=== PATIENT | male | born 1945 | race Caucasian/White ===

== ENCOUNTER → 2019-03-18 09:14 | Outpatient (BNVA) | payer MEDICARE, SELFPAY | PROVIDERS: Family Provider Nurse Practitioner Family; PCP Nurse Practitioner Family; Visit Provider Nurse Practitioner Family | DX: I10 Essential (primary) hypertension (principal); E29.1 Testicular hypofunction; G62.9 Polyneuropathy, unspecified; R31.9 Hematuria, unspecified | CPT/HCPCS: 81003; 84403 ==

== ENCOUNTER 2019-05-04 13:49 | Emergency (ER) | payer MEDICARE, SELFPAY ==
[2019-05-04 13:58] VITALS: BP 144/92; PULSE 74; RESP 16; TEMP 36.5; O2SAT 95; BMI 26.6
--- NOTE | 2019-05-04 14:01 | ED_ITS ---
Entered by Cassidy Stokes, acting as scribe for Breann Massey MD HPI - Nausea/Vomiting/Diarrhea General: Chief complaint: Nausea/Vomiting/Diarrhea Stated complaint: Throwing up Time Seen by Provider: 05/04/19 14:01 Source: patient Mode of arrival: ambulatory Limitations: no limitations History of Present Illness: HPI Narrative: 73 yo Male presents to ED with comp laint of vomiting. Diagnosed with diverticulitis by CT scan at [facility] yesterday. Put on Flagyl and Cipro but not given any nausea medicine and cannot stop throwing up. States he vomited too many times today to count. Had a normal bowel movement today. Abdominal pain that is mild to moderate diffusely. Has never had diverticulitis before. Remote history of cholecystectomy and appendectomy. No fever but has recently had a sinus infection and finished amoxicillin for that. Also complains of a dry cough MD elicited complaint: vomiting Associated nausea: No Associated symtoms: Denies change in vision, chest pain, headache(s) or nausea Review of Systems General: Reports: 10 or more systems reviewed and unremarkable except in HPI and below Const: Denies: fever or chills Eyes: Denies: change in vision ENMT: Denies: throat pain Card: Denies: chest pain Resp: Denies: shortness of breath GI: Reports: vomiting; Denies: abdominal pain or nausea Musc: Denies: muscle weakness Skin/Breast: Denies: rash Neuro: Denies: headache Psych: Denies: hopelessness or suicidal ideation Endo: Denies: excessive urination Angus/Lymph: Denies: easy bruising or easy bleeding All/Imm: Denies: hives [facility] ED PFSH: Medical History HTN (hypertension) Neuropathy Peripheral neuropathy Surgical History History of back surgery Hx of appendectomy Hx of cholecystectomy Hx of knee surgery Hx of neck surgery Social History Smoking and tobacco status: former smoker Second hand smoke exposure: Yes Physical Exam Const: COMMON NORMALS: no apparent distress, oriented x3, alert and well nourished HENMT: COMMON NORMALS: normocephalic and external nose normal HEAD & SCALP: normocephalic NOSE: external nose normal MOUTH: no trismus Eye: COMMON NORMALS: EOMs intact bilaterally and conjunctivae normal CONJUNCTIVA: Yes conjunctivae normal Neck/C-Spine: COMMON NORMALS: full ROM, no lymphadenopathy and supple CERVICAL SPINE: Yes cervical ROM normal Lymph: LYMPHATIC: no lymphadenopathy noted Resp: COMMON NORMALS: normal respiratory effort, no retractions, no use of accessory muscles and clear to auscultation bilaterally EFFORT & INSPECTION: Yes able to speak in complete sentences AUSCULTATION: clear to auscultation bilaterally Cardio: COMMON NORMALS: regular rate and regular rhythm RATE: regular rate RHYTHM: regular rhythm GI: COMMON NORMALS: normal to inspection, nondistended, normoactive bowel sounds, soft to palpation and no masses INSPECTION: Yes normal to inspection AUSCULTATION: Yes normoactive bowel sounds PALPATION: Yes soft, No guarding and No rigid OTHER: TTP to diffusely to moderate to deep palpation Back/Pelvis: OTHER: Normal range of motion Extremity: GENERAL: Yes normal exam except as noted Neuro: COMMON NORMALS: oriented x3 and CN's II-XII intact bilaterally SENSORIUM/ORIENTATION: Yes alert SPEECH: speech normal Psych: COMMON NORMALS: mental status grossly normal Skin: COMMON NORMALS: no rashes or lesions noted GENERAL SKIN EXAM: no rashes or lesions noted Course Vital Signs: Vital signs: Vital Signs Temperature 97.7 F 05/04/19 13:58 Pulse Rate 85 05/04/19 17:52 Respiratory Rate 17 05/04/19 17:52 Blood Pressure 149/86 05/04/19 17:52 Pulse Oximetry 97 05/04/19 17:52 MDM - Nausea/Vomiting/Diarrhea Lab Data: Labs: Lab Results 05/04/19 05/04/19 05/04/19 Range/Units 14:15 14:15 15:08 WBC 10.8 H (4.0-10.0) 10^3/ uL RBC 4.69 (4.1-5.3) 10^6/u L Hgb 13.9 (11.7-16.6) g/dL Hct 42.2 (42.0-52.0) % MCV 90.0 (80-94) fL MCH 29.6 (28.0-34.0) pg MCHC 32.9 (30.0-36.0) g/dL RDW 13.0 (12.1-15.1) % Plt Count 212 (130-400) 10^3/c mm MPV 12.0 H (7.4-10.4) fL Neut % (Auto) 81.9 % Lymph % (Auto) 11.0 % [place] % (Auto) 6.4 % Eos % (Auto) 0.3 % Baso % (Auto) 0.2 % Neut # (Auto) 8.8 H (1.8-7.7) 10^3/u L Lymph # (Auto) 1.2 (0.8-4.8) 10^3/u L [place] # (Auto) 0.7 (0.2-0.9) 10^3/u L Eos # (Auto) 0.0 (0.0-0.8) 10^3/u L Baso # (Auto) 0.0 (0.0-0.1) 10^3/u L Nucleated RBC % (a uto) 0 % Nucleated RBCs # 0.0 /100WBC Sodium 132 L (136-145) mmol/L Potassium 4.3 (3.5-5.1) mmol/L Chloride 98 (98-107) mmol/L Carbon Dioxide 20 L (22-29) mmol/L Anion Gap 18.3 (5-19) BUN 8 (8-23) mg/dL Creatinine 1.1 (0.7-1.2) mg/dL Glucose 114 (65-115) mg/dL Calculated Osmolal ity 271 L (285-295) mOsm/k g Calcium 9.8 (8.5-10.5) mg/dL Total Bilirubin 0.6 (0.15-1.2) mg/dL AST 25 (0-40) U/L ALT 40 (0-41) U/L Alkaline Phosphata se 61 (40-130) IU/L Total Protein 7.1 (6.6-8.7) g/dL Albumin 4.4 (3.5-5.2) g/dL Globulin 2.7 (1.3-4.6) g/dL Lipase 44 (13-60) U/L Urine Color Yellow (Yellow) Urine Appearance Clear (CLEAR) Urine pH 6.5 (5-7) Ur Specific Gravit y 1.010 (1.005-1.030) Urine Protein Neg (Negative) Urine Glucose (UA) Norm (Normal) Urine Ketones Negative (Negative) Urine Blood Neg (Negative) Urine Nitrate Negative (Negative) Urine Bilirubin Neg (NEGATIVE) Urine Urobilinogen Norm (Negative) mg/dL Ur Leukocyte Deedee ase Negative (Negative) Imaging Data^: CT Abd/Pel: Radiologist's impression: [place] [address] CT Scan Report Signed Patient: Rima Nath #: [id number] : 6Acct#:[id number] Age/Sex: 73 / MADM Date: 05/04/19 Loc: ERRoom/Bed: Attending Dr: Ordering Provider/Ordering MD: Breann Massey MD Date of Service: 05/04/19 Procedure(s): CT abdomen pelvis w con* [id number] Accession Number(s): [id number] Report Number: [id number] WS: [id number] CT ABDOMEN PELVIS TECHNIQUE: Contrast-enhanced CT of the abdomen and pelvis with coronal and sagittal reformatted images. CLINICAL INFORMATION: abd pain, intractable vomiting COMPARISON: None. DLP: 791.[address] scans at [facility] use at least one of these dose optimization techniques: automated exposure control; mA and/or kV adjustment per patient size (includes targeted exams where dose is matched to clinical indication); or iterative reconstruction. FINDINGS: Mild intrahepatic biliary ductal dilatation. Cholecystectomy clips. Adrenal glands are normal. Bilateral renal cysts. Largest right renal cyst measures 2.3 CCM. Largest left renal cyst lower pole measures 2.2 CCM. Emphysematous changes in the lung bases. Bibasilar atelectasis. Small esophageal hiatal hernia. Sigmoid diverticulosis. No evidence of acute diverticulitis. Heterogeneous nodular enlarged prostate measuring 6.4 cm. Prior appendectomy. No periaortic or inguinal lymphadenopathy. Slightly aneurysmal infrarenal abdominal aorta m easuring 3.[address]/CT abdomen pelvis w con* [id number] IMPRESSION: 1. Cholecystectomy clips. Physiologic bile duct dilatation postcholecystectomy. 2. No hydronephrosis. Bilateral renal cysts. 3. Aneurysmal infrarenal abdominal aorta measuring 3.8 x 3.7 CM. 4. Diverticulosis. No evidence of acute diverticulitis. 5. Enlarged prostate measuring 5.8 x 5.4 x 6.4 CM. Dictated By:Heron Judd MD Signed By:Heron Judd MDSigned Date/Time:05/04/19 1550 DD/ 1537 Discharge Plan Discharge Patient Disposition: Home, Self-Care Clinical Impression: Vomiting Qualifiers: Vomiting type: unspecified Vomiting Intractability: non-intractable Nausea presence: with nausea Qualified Code(s): R11.2 - Nausea with vomiting, unspecified Condition: Stable Prescriptions: New Zofran 4 mg tablet 4 mg PO Q6H PRN (Reason: nausea and vomiting) Qty: 10 RF: 0 No Action gabapentin 300 mg capsule 300 mg PO BID Qty: 60 RF: 2 esomeprazole magnesium 40 mg capsule,delayed release(DR/EC) 40 mg PO DAILY Qty: 90 RF: 1 fenofibrate nanocrystallized 145 mg tablet 145 mg PO DAILY Qty: 90 RF: 0 metronidazole 500 mg tablet 500 mg PO Q8H RF: 0 ciprofloxacin HCl 500 mg tablet 500 mg PO DAILY RF: 0 Referrals: Gely Espinosa FNP [Primary Care Provider] - Discharge Diet: Advance as tolerated Patient Instructions: Vomiting - Adult Activity Restrictions/Additional Instructions: take zofran if needed for nausea. STOP the cipro and flaggyl as they are likely making you vomit. Follow up with pcp as needed and/or return to ER for any emergent problems Discharge Date/Time: 05/04/19 17:53 Coding Level of Care Code ED Journalism Teacher for Chg Fwd Exam Comprehensive The documentation recorded by the Divya goodwin Carmen, accurately reflects the service I personally performed and the decisions made by , Breann Massey MD May 04, 2019 13:49
[2019-05-04 14:07] VITALS: O2SAT 96
[2019-05-04 14:23] LABS: Basophils % 0.2 %; Eosinophils % 0.3 %; Hematocrit 42.2 % (42.0-52.0); Hemoglobin 13.9 g/dL (11.7-16.6); Lymphocytes # 1.2 10^3/uL (0.8-4.8); Mean Corpuscular HGB Conc 32.9 g/dL (30.0-36.0); Mean Corpuscular Hemoglobin 29.6 pg (28.0-34.0); Monocytes # 0.7 10^3/uL (0.2-0.9); Monocytes % 6.4 %; Neutrophils # 8.8 10^3/uL (1.8-7.7); Neutrophils % 81.9 %; Nucleated Red Blood Cells % 0 %; Platelet Count 212 10^3/cmm (130-400); Red Blood Count 4.69 10^6/uL (4.1-5.3); White Blood Count 10.8 10^3/uL (4.0-10.0)
[2019-05-04] MEDS: sodium chloride 0.9% 1,000 ML 999 ML IV (14:25)
[2019-05-04] MEDS: ondansetron 2 mg/ML SDV 2 mL 4 MG IVP (14:25)
[2019-05-04 14:27] LABS: Slide Review Slide Review Perform
[2019-05-04 14:35] LABS: Alanine Aminotransferase 40 U/L (0-41); Albumin Level 4.4 g/dL (3.5-5.2); Alkaline Phosphatase 61 IU/L (40-130); Anion Gap 18.3 (5-19); Aspartate Amino Transferase 25 U/L (0-40); Blood Urea Nitrogen 8 mg/dL (8-23); Calcium 9.8 mg/dL (8.5-10.5); Carbon Dioxide 20 mmol/L (22-29); Chloride 98 mmol/L (98-107); Globulin 2.7 g/dL (1.3-4.6); Glucose 114 mg/dL (65-115); Lipase 44 U/L (13-60); Osmolality Calculated 271 mOsm/kg (285-295); Potassium 4.3 mmol/L (3.5-5.1); Sodium 132 mmol/L (136-145); Total Bilirubin 0.6 mg/dL (0.15-1.2); Total Protein 7.1 g/dL (6.6-8.7)
[2019-05-04 15:12] VITALS: BP 133/87; PULSE 72; RESP 16; O2SAT 96
--- NOTE | 2019-05-04 15:14 | CT_ITS ---
WS: [id number] CT ABDOMEN PELVIS TECHNIQUE: Contrast-enhanced CT of the abdomen and pelvis with coronal and sagittal reformatted image s. CLINICAL INFORMATION: abd pain, intractable vomiting COMPARISON: None. DLP: 791.[address] scans at [facility] use at least one of these dose optimization techniques: automat ed exposure control; mA and/or kV adjustment per patient size (includes targeted exams where dose is matched to clinical indication); or iterative reconstruction. FINDINGS: Mild intrahepatic biliary ductal dilatation. Cholecystectomy clips. Adrenal glands are normal. Bilate ral renal cysts. Largest right renal cyst measures 2.3 CCM. Largest left renal cyst lower pole measur es 2.2 CCM. Emphysematous changes in the lung bases. Bibasilar atelectasis. Small esophageal hiatal h ernia. Sigmoid diverticulosis. No evidence of acute diverticulitis. Heterogeneous nodular enlarged prostate measuring 6.4 cm. Prior appendectomy. No periaortic or inguinal lymphadenopathy. Slightly aneurysmal infrarenal abdominal aorta measuring 3.[address]/CT abdomen pelvis w con* [id number] IMPRESSION: 1. Cholecystectomy clips. Physiologic bile duct dilatation postcholecystectomy . 2. No hydronephrosis. Bilateral renal cysts. 3. Aneurysmal infrarenal abdominal aorta measuring 3.8 x 3.7 CM. 4. Diverticulosis. No evidence of acute diverticulitis. 5. Enlarged prostate measuring 5.8 x 5.4 x 6.4 CM.
[2019-05-04 15:15] LABS: Add Urine Microscopic? NO
[2019-05-04 15:24] LABS: Bilirubin Urine Neg (NEGATIVE); Blood Urine Neg (Negative); Glucose Urine UA Norm (Normal); Ketones Urine Negative (Negative); Leukocyte Esterase Urine Negative (Negative); Nitrate Urine Negative (Negative); Protein Urine Neg (Negative); Urine Appearance Clear (CLEAR); Urine Color Yellow (Yellow); Urobilinogen Urine Norm (Negative); pH Urine 6.5 (5-7)
[2019-05-04] MEDS: iohexol 300 mg/mL 100 mL Btl IV (15:28)
[2019-05-04] MEDS: promethazine 25 mg/mL SDV 1 mL IM (16:50)
[2019-05-04] MEDS: sodium chloride 0.9% 500 ML 999 ML IV (16:50)
[2019-05-04 17:26] VITALS: BP 145/95; PULSE 77; O2SAT 94
[2019-05-04 17:52] VITALS: BP 149/86; PULSE 85; RESP 17; O2SAT 97
== END 2019-05-04 17:53 | disposition home or self-care (01) ==
PROVIDERS: Emergency Provider Emergency Medicine; Family Provider Nurse Practitioner Family; PCP Nurse Practitioner Family
DX: R11.0 Nausea (principal); I10 Essential (primary) hypertension; Z87.891 Personal history of nicotine dependence
CPT/HCPCS: 12345; 36415; 74177; 80053; 81003; 83690; 85025; 96361; 96372; 96374; 96375; 99283; 99284; J2405; J2550; J7030; J7040; Q9967

== ENCOUNTER → 2019-08-19 09:03 | Outpatient (BNVA) | payer MEDICARE, SELFPAY | PROVIDERS: Family Provider Nurse Practitioner Family; PCP Nurse Practitioner Family; Visit Provider Nurse Practitioner Family | DX: G62.9 Polyneuropathy, unspecified (principal); E78.49 Other hyperlipidemia; S46.919A Strain of unspecified muscle, fascia and tendon at shoulder and upper arm level, unspecified arm, initial encounter; X58.XXXA Exposure to other specified factors, initial encounter; Z12.5 Encounter for screening for malignant neoplasm of prostate | CPT/HCPCS: G0103 ==

== ENCOUNTER → 2020-03-18 08:43 | Outpatient (BNVA) | payer MEDICARE, SELFPAY | PROVIDERS: Family Provider Nurse Practitioner Family; PCP Nurse Practitioner Family; Visit Provider Nurse Practitioner Family | DX: I10 Essential (primary) hypertension (principal) | CPT/HCPCS: 80053 ==

== ENCOUNTER → 2020-04-29 08:13 | Outpatient (BNVA) | payer MEDICARE, SELFPAY | PROVIDERS: PCP Nurse Practitioner Family; Visit Provider Surgery | DX: K21.9 Gastro-esophageal reflux disease without esophagitis (principal); Z20.822 Contact with and (suspected) exposure to COVID-19 | CPT/HCPCS: 87635 ==

== ENCOUNTER 2020-05-02 10:07 | Outpatient (CLI) | payer MEDICARE, SELFPAY ==
--- NOTE | 2020-05-02 10:15 | USCV_ITS ---
Cong Nath Age: 74 Gender: M : 1945 Exam Date: 05/02/2020 10:23 Ordering Phys: Gely Espinosa-Kevin CASON Technologist: AMILCAR Exam Location[place] [facility] [place] Indication: AAA HISTORY: Diameter (cm) AP x Transverse x Length Velocity (cm/s) Waveform Prox Aorta: 2.74 x 2.09 x 35.90 Mid Aorta: 3.00 x 3.42 x 40.90 Distal Aorta: 4.40 x 4.46 x 17.60 Right Iliac Prox: 1.13 x 1.27 x 51.60 Left Iliac Prox: 1.25 x 1.58 x 42.70 Stent Prox Landing x x Aneurysmal Sac Max x x Lt Lat Sac Dim Rt Lat Sac Dim Stent Dist Landing x x Right Iliac Stent x x Left Iliac Stent x x Right Renal Art Left Renal Art FINDINGS: Comparison:. 02/06/19. Increasing size of the infrarenal AAA, now maximum diameter of 4.6 cm. Mild diffuse intimal thickening. There is no evidence of a right common iliac artery aneurysm. There is no evidence of a left common iliac artery aneurysm. CONCLUSIONS Increasing AAA, maximum diameter of 4.[address] Dottie Lazaro DO (Electronically Signed) Final Date: 02 May 2020 16:14 S
== END 2020-05-02 10:08 | disposition home or self-care (01) ==
PROVIDERS: PCP Nurse Practitioner Family; Visit Provider Nurse Practitioner Family
DX: I71.4 Abdominal aortic aneurysm, without rupture (principal)
CPT/HCPCS: 76706; 80061; 82947; 83036; G0103

== ENCOUNTER 2020-05-04 07:54 | Day surgery (SDC) | payer MEDICARE, SELFPAY ==
--- NOTE | 2020-05-04 08:02 | ANES.PREANE2 ---
Pre-Anesthetic Assessment Pre-Anesthetic Assessment: Height/Weight: Height 1.85 m Preop Diagnosis: GERD Proposed Procedure: Operation Date: 03/30/20 09:40 Proposed Procedures p EGD 14449 K21.9(Not Applicable) - Devaughn Jang MD Operation Date: 05/04/20 09:30 Proposed Procedures p EGD 34709 K21.9(Not Applicable) - Devaughn Jang MD Familial anesthetic complications: None Was Beta Camelia taken within 24 hours: N/A Was Clonidine taken within 24 hours: N/A Last intake: NPO > 8 hrs Social: Social History: Tobacco Exam: Pre-Anes Outpt Exam: alert, oriented x 3, clear to auscultation bilaterally and regular rate & rhythm Airway: Cervical ROM: WNL MP: 4 Dentition: Chipped (multiple) and Other (missing) CV/HEM: CV/HEM: HTN Comments: AAA - uknown size GI: GI: GERD Musc/skel: Musc/skel: Lower Back Pain Anesthetic Plan: ASA status: 2 Anesthesia: MAC Risk of > 500 ml blood loss (7ml/kg in children): No PFSH Anesthesia PFSH: Medical History GERD (gastroesophageal reflux disease) Neuropathy Peripheral neuropathy Surgical History History of back surgery Hx of appendectomy Hx of cholecystectomy Hx of knee surgery Hx of neck surgery Family History Denies family history of Anesthesia complication Bleeding disorder Social History Smoking and tobacco status: former smoker Second hand smoke exposure: Yes Data Anesthesia Cardiac Studies: No Data to Display
--- NOTE | 2020-05-04 08:36 | P.HP_ITS ---
Same Day Surgery H&P Indication for Procedure/HPI DATE OF PROCEDURE: May 04, 2020 CHIEF COMPLAINT/INDICATIONFOR SURGICAL PROCEDURE: GERD and vomiting PREOP DIAGNOSIS: Bloating and vomiting PLANNED PROCEDRUE: Operation Date: 03/30/20 09:40 Proposed Procedures p EGD 97005 K21.9(Not Applicable) - Devaughn Jang MD Operation Date: 05/04/20 09:30 Proposed Procedures p EGD 41254 K21.9(Not Applicable) - Devaughn Jang MD This is a pleasant 74 years old gentleman referred to my practice with history of bloating and vomiting without any evidence of hematemesis or hematochezia. Patient does not report any specific explanation for his symptoms yet all kinds of food according to his description make him symptomatic. Undergone an EGD a while ago about 5 years and he does not remember any significant findings and he had a colonoscopy 2 years ago and was told that he has diverticulosis also he reports to me when I asked him he did have gallbladder surgery. Patient reports that he has lactose intolerance when asked him about different types of food Interim history 05/04/2020 Patient comes today for diagnostic EGD ROS All systems have been reviewed negative except as per the above or per problem list. Medications/Allergies* Home Medications Medication Instructions Recorded Confirmed Type fenofibrate nanocrystallized 145 mg PO DAILY 05/02/20 05/04/20 History lansoprazole 30 mg PO DAILY 05/02/20 05/04/20 History Allergies/Adverse Reactions Allergy/AdvReac Type Severity Reaction Status Date / Time atorvastatin [From Lipitor] Allergy abdominal Verified 05/04/20 08:40 pain hydrocodone Allergy abdominal Verified 05/04/20 08:40 pain Pertinent History/Comorbid Conditions* Medical History (Updated 03/12/20 @ 09:42 by Devaughn Jang MD) GERD (gastroesophageal reflux disease) Neuropathy Peripheral neuropathy Surgical History (Updated 02/17/19 @ 11:12 by YOAV Walls) History of back surgery Hx of appendectomy Hx of cholecystectomy Hx of knee surgery Hx of neck surgery Family History (Updated 03/10/20 @ 15:04 by Christa Wilde RN) Denies family history of Anesthesia complication Bleeding disorder Social History Smoking and tobacco status: former smoker Second hand smoke exposure: Yes Pertinent Exam Findings alert, oriented x 3, clear to auscultation bilaterally, regular rate & rhythm and procedure specific exam findings (Abdominal examination nontender nondistended soft) Recommendations Surgery/Procedure today (Diagnostic EGD with possible biopsy) Other Plans: Plan of care; After thorough history and physical examination and reviewing the chart, plan to perform a diagnostic esophagogastroduodenoscopy with possible biopsy in the GI lab. I discussed with the patient in detail the risk,benefits,alternatives and jemima cations.The risk of aspiration, bleeding, soft tissue injury, perforation of the stomach/esophagus and other potential concomitant complications were explained to the patient in details,aslo the potential need for Thoracic and or Abdominal surgery to repair any complications.The patient understood this well and did agree to proceed. Rationale was carefully and clearly discussed with the patient.Appropriate informed consent have been reviewed and signed All questions have been answered and all concerns have been addressed to patient's satisfaction. Coding Level of Care Code Acute Auto Battery Builder for Una Klein
[2020-05-04 08:42] VITALS: BP 116/66; PULSE 63; RESP 18; TEMP 35.9; O2SAT 94
[2020-05-04] MEDS: sodium chloride 0.9% 1,000 ML 30 ML IV (08:46)
[2020-05-04 10:03] VITALS: BP 126/77; PULSE 62; RESP 16; TEMP 36.4; O2SAT 97
--- NOTE | 2020-05-04 10:11 | ANE.PACU2 ---
Inpatient post-anesthesia follow up: Airway intact: Yes Vital signs: Temperature 96.7 F Pulse Rate 63 Respiratory Rate 18 Blood Pressure 116/66 Pulse Oximetry 94 Oxygen Delivery Me thod Room Air Oxygen Flow Rate Fraction of Inspir ed Oxygen Hydration adequate: Yes Nausea and vomiting: No Mental status: Baseline
[2020-05-04 10:30] VITALS: BP 127/84; PULSE 55; RESP 16; O2SAT 97
[2020-05-05 06:29] LABS: H. Pylori / CLO Test Negative
== END 2020-05-04 10:37 | disposition home or self-care (01) ==
PROVIDERS: PCP Nurse Practitioner Family; Visit Provider Surgery
PROC: 0DJ08ZZ Inspection of Upper Intestinal Tract, Via Natural or Artificial Opening Endoscopic (ICD-10-PCS; CPT 43235; principal; 2020-05-04 09:30)
DX: K21.00 Gastro-esophageal reflux disease with esophagitis, without bleeding (principal); K29.80 Duodenitis without bleeding; K29.70 Gastritis, unspecified, without bleeding; R11.10 Vomiting, unspecified; R14.0 Abdominal distension (gaseous); Z87.891 Personal history of nicotine dependence; I10 Essential (primary) hypertension
CPT/HCPCS: 43239; 87077; 96360; 96361; J2704; J7030

== ENCOUNTER 2020-05-09 08:44 | Outpatient (CLI) | payer MEDICARE, SELFPAY ==
--- NOTE | 2020-05-09 08:50 | FL_ITS ---
WS: [id number] MODIFIED BARIUM SWALLOW HISTORY: Other dysphagia FLUOROSCOPY TIME: 2.2 minutes. Modified barium swallow was performed by the speech pathologist. Fluoroscopy was provided with the pa tient in a lateral projection. Multiple food consistencies were provided. Patient swallowed most food consistencies without difficulty. With the thin liquids there are a few e pisodes of laryngeal penetration. No aspiration. With the more solid food consistencies there is tadeo yed and incomplete swallowing of the foods. Food products became lodged near the epiglottis but this resolved with liquid chasers. Barium tablet became delayed in the mid to distal esophagus due to esophageal dysmotility. FL/FL barium swallow modifd 43880 IMPRESSION: 1. Minimal clearing of the more solid food consistencies which resolved with l iquid chaser. 2. Barium tablet became briefly lodged within the mid to distal esophagus due to esophageal dysmotility. 3. No aspiration. Please see speech therapist report also for recommendations.
== END 2020-05-09 08:45 | disposition home or self-care (01) ==
PROVIDERS: PCP Nurse Practitioner Family; Visit Provider Surgery
DX: R13.10 Dysphagia, unspecified (principal)
CPT/HCPCS: 74230; 92611

== ENCOUNTER 2020-05-11 08:10 | Outpatient (CLI) | payer MEDICARE, SELFPAY ==
--- NOTE | 2020-05-11 08:30 | CT_ITS ---
WS: [id number] CTA ABDOMEN TECHNIQUE: Noncontrast plus contrast enhanced CTA of the abdominal aorta with coronal and sagittal re formatted images and additional MIP Images. CLINICAL INFORMATION: I71.4 - Abdominal aortic aneurysm, without rupture COMPARISON: CT May 04, 2019 DLP: 1017.[address] scans at [facility] use at least one of these dose optimization techniques: automat ed exposure control; mA and/or kV adjustment per patient size (includes targeted exams where dose is matched to clinical indication); or iterative reconstruction. FINDINGS: Moderate aortic atheromatous disease. Infrarenal abdominal aortic aneurysm with peripheral mural thrombus. Aneurysm measures approximately 3.8 x 4.1 x 4.5 cm AP by transverse by craniocaudal. Celiac and SMA are patent. Proximal renal arteries are patent. Tortuous and slightly ectatic common i liac arteries left greater than right. Left common iliac artery measures 1.4 cm in maximum dimension. Retroaortic left renal vein. Stable mild intrahepatic biliary ductal dilatation. Cholecystectomy. Adrenal glands are normal. Stabl e bilateral renal cysts. Small esophageal hiatal hernia. Sigmoid diverticulosis. No evidence of acute diverticulitis. Heteroge neous nodular enlarged prostate measuring 6.[address]/CT angio abdomen pelvis 37185 IMPRESSION: 1. Infrarenal abdominal aortic aneurysm measures a few millimeters larger toda y 3.8 x 4.1 x 4.5 cm AP by transverse by craniocaudal compared to previous faviola uring 3.8 x 3.7 x 4.3 CM. 2. Celiac and SMA are patent. Proximal renal arteries are patent. 3. No other significant changes compared to previous. 4. Postcholecystectomy. 5. Diverticulosis. 6. Enlarged prostate. Recommend correlation PSA.
[2020-05-11 09:05] LABS: Blood Urea Nitrogen 10 mg/dL (8-23)
[2020-05-11] MEDS: iodixanol 320 mg/mL 100mL Btl IV (09:15)
== END 2020-05-11 08:11 | disposition home or self-care (01) ==
LOC: RADWPI 08:19
PROVIDERS: PCP Nurse Practitioner Family; Visit Provider Nurse Practitioner Family
DX: I71.4 Abdominal aortic aneurysm, without rupture (principal); Z90.49 Acquired absence of other specified parts of digestive tract; K57.90 Diverticulosis of intestine, part unspecified, without perforation or abscess without bleeding; N40.0 Benign prostatic hyperplasia without lower urinary tract symptoms
CPT/HCPCS: 74174; 82565; 84520; Q9967

== ENCOUNTER 2020-05-23 20:09 | Emergency (ER) | payer MEDICARE, SELFPAY ==
[2020-05-23 20:15] VITALS: BP 147/84; PULSE 65; RESP 17; TEMP 36.5; O2SAT 97; BMI 25.6
--- NOTE | 2020-05-23 20:31 | ECG_ITS ---
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 Measurements Intervals [place] Rate: 58 P: 48 [place]: 157 QRS: -58 QRSD: 101 T: 36 QT: 408 QTc: 404 Interpretive Statements SINUS BRADYCARDIA INCOMPLETE RIGHT BUNDLE BRANCH BLOCK [90+ ms QRS DURATION, TERMINAL R IN V1/V2, 40+ ms S IN I/aVL/V4/V5/V6] LEFT ANTERIOR FASCICULAR BLOCK [QRS AXIS <= -45, QR IN I, RS IN II] No previous ECG available for comparison Electronically Signed On 05-25-2020 7:37:30 CDT by Enoch Jiang M.D. [id number]
--- NOTE | 2020-05-23 20:31 | XRR_ITS ---
PROCEDURE INFORMATION: Exam: XR Chest Exam date and time: 05/23/2020 8:43 PM Age: 74 years old Clinical indication: Chest pain; Patient HX: High BP, HX heart aneurysm; Additional info: Cp since 05/22/20 TECHNIQUE: Imaging protocol: XR of the chest. Views: 1 view. COMPARISON: No relevant prior studies available. FINDINGS: Lungs: Lungs are well aerated without a focal area of consolidation. Pleural spaces: Unremarkable. No pleural effusion. No pneumothorax. Heart/Mediastinum: Unremarkable. No cardiomegaly. Bones/joints: Prior surgical fixation of the caudal aspect of the cervical spine. XR/XR chest 1V portable [id number] IMPRESSION: Lungs are well aerated without a focal area of consolidation.
--- NOTE | 2020-05-23 20:55 | CTR_ITS ---
PROCEDURE INFORMATION: Exam: CTA Chest With and Without Contrast Exam date and time: 05/23/2020 9:03 PM Age: 74 years old Clinical indication: Pain; Other: Cp/ elevated BP; Prior surgery; Surgery type: Neck, appy, gb, back; Additional info: Chest pain, history of aaa TECHNIQUE: Imaging protocol: Computed tomographic angiography of the chest with contrast. 3D rendering (Not supervised by radiologist): MIP and/or 3D reconstructed images were created and reviewed. Total images: 1867 COMPARISON: CT angio abdomen pelvis [id number] 05/11/2020 9:04 AM FINDINGS: Pulmonary arteries: Suboptimal pulmonary arterial contrast enhancement. No grossly visible central pulmonary embolism/pulmonary arterial thrombus. Aorta: The thoracic aorta is nonaneurysmal. No visible intimal flap or dissection. Moderate arterial sclerotic disease. Mild intramural thrombus without occlusion. Other arteries: Common origin of the left vertebral artery off the aortic arch which is a normal anatomical variant. Lungs: No visible active interstitial or alveolar airspace disease. Calcified granulomas of antecedent disease. Rare bullous/bleb. Evidence of mild air trapping of COPD/chronic bronchitis. Pleural spaces: Unremarkable. No pneumothorax. No pleural effusion. Heart: Three vessel coronary artery disease. No cardiomegaly. Left ventricular prominence. No visible pericardial effusion. Mediastinal space: Patulous esophagus. Lymph nodes: No definitive evidence of active mediastinal or hilar lymphadenopathy. There are calcified hilar complexes of antecedent granulomatous disease present. Bones/joints: No visible active or acute osseous pathology. Evidence of a cervical fusion. Soft tissues: Unremarkable. IMPRESSION: 1. No visible evidence of acute cardiopulmonary/cardiothoracic pathologic process. 2. Other nonurgent, nonemergent, chronic, and age related findings as detailed in text above. PROCEDURE INFORMATION: Exam: CTA Abdomen and Pelvis With Contrast Exam date and time: 05/23/2020 9:03 PM Age: 74 years old Clinical indication: Pain; Other: Cp/ elevated BP; Prior surgery; Surgery type: Neck, appy, gb, back; Additional info: Chest pain, history of aaa TECHNIQUE: Imaging protocol: Computed tomographic angiography of the abdomen and pelvis with contrast material. 3D rendering (Not supervised by radiologist): MIP and/or 3D reconstructed images were created by the technologist. Radiation optimization: All CT scans at this facility use at least one of these dose optimization techniques: automated exposure control; mA and/or kV adjustment per patient size (includes targeted exams where dose is matched to clinical indication); or iterative reconstruction. Contrast material: VISI 320; Contrast volume: 95 ml; Contrast route: INTRAVENOUS (IV); COMPARISON: CT angio abdomen pelvis [id number] 05/11/2020 9:04 AM RADIATION DOSE METRICS: Total DLP (mGy-cm): 1708.99 FINDINGS: Aorta: Mild infrarenal fusiform aneurysmal dilatation of the distal abdominal aorta that appear stable since 05/11/2020 measuring approximately 41 mm in AP diameter in 38 mm in transverse diameter. Moderately advanced arteriosclerosis. Mild intramural thrombus without occlusion. No intimal flap or dissection. Celiac trunk and mesenteric arteries: No occlusion or significant stenosis. Separate origin of the hepatic and splenic arteries off the abdominal aorta Renal arteries: No occlusion or significant stenosis. Right iliac arteries: No occlusion or significant stenosis. Left iliac arteries: No occlusion or significant stenosis. Liver: No visible hepatic mass or cystic structure. Gallbladder and bile ducts: Status post cholecystectomy. Pancreas: Pancreas unremarkable. No visible pancreatic ductal ectasia. Spleen: Spleen unremarkable. Adrenal glands: Adrenal glands unremarkable. Kidneys and ureters: No hydronephrosis or perinephric fluid bilaterally. Stable simple renal cortical cysts. No follow-up recommended. No visible nephrolithiasis. Stomach and bowel: Diverticulosis coli without evidence for acute diverticulitis. Nonobstructive bowel pattern. No visible adynamic or reactive ileus. Appendix: Status post appendectomy. Intraperitoneal space: No visible pneumoperitoneum or intraperitoneal ascites. Lymph nodes: Unremarkable. No enlarged lymph nodes. Urinary bladder: Unremarkable. No mass. Reproductive: Marked prostate hypertrophy. Bones/joints: No visible active or acute osseous pathology. Degenerative disc disease L4/L5 and L5/S1. Soft tissues: Unremarkable. CT/CT angio chest abdomen pelvis IMPRESSION: 1. Stable appearing infrarenal fusiform abdominal aortic aneurysm without intimal flap or dissection. 2. No visible evidence of acute abdominal or pelvic pathologic process. 3. Rather extensive diverticulosis coli without evidence for acute diverticulitis. 4. Other nonurgent, nonemergent, chronic, and age related findings as detailed in text above. Radiation Dose CTDIVOL = (mGy): DLP = 1708.99 (mGy-cm)
[2020-05-23] MEDS: iodixanol 320 mg/mL 100mL Btl IV (21:18)
[2020-05-23 21:27] LABS: Basophils # 0.1 10^3/uL (0.0-0.1); Basophils % 0.8 %; Eosinophils # 0.3 10^3/uL (0.0-0.8); Eosinophils % 3.6 %; Hematocrit 43.3 % (42.0-52.0); Hemoglobin 14.2 g/dL (11.7-16.6); Lymphocytes # 2.1 10^3/uL (0.8-4.8); Lymphocytes % 23.6 %; Mean Corpuscular HGB Conc 32.8 g/dL (30.0-36.0); Mean Corpuscular Hemoglobin 28.6 pg (28.0-34.0); Mean Corpuscular Volume 87.3 fL (80-94); Mean Platelet Volume 12.8 fL (7.4-10.4); Monocytes # 0.7 10^3/uL (0.2-0.9); Monocytes % 7.4 %; Neutrophils # 5.66 10^3/uL (1.8-7.7); Neutrophils % 64.4 %; Nucleated Red Blood Cells % 0 %; Platelet Count 185 10^3/cmm (130-400); Red Blood Count 4.96 10^6/uL (4.1-5.3); Red Cell Distribution Width 13.6 % (12.1-15.1); White Blood Count 8.8 10^3/uL (4.0-10.0)
[2020-05-23 21:45] LABS: Troponin(5th) Baseline 7 ng/L (0-15)
[2020-05-23 21:55] LABS: Alanine Aminotransferase 17 U/L (0-41); Albumin Level 4.7 g/dL (3.5-5.2); Alkaline Phosphatase 59 IU/L (40-130); Anion Gap 14.2 (5-19); Aspartate Amino Transferase 18 U/L (0-40); Blood Urea Nitrogen 17 mg/dL (8-23); Carbon Dioxide 25 mmol/L (22-29); Chloride 106 mmol/L (98-107); Creatinine Clr Calc Pharmacy 63.5088; Globulin 1.7 g/dL (1.3-4.6); Glucose 94 mg/dL (65-115); NT Pro B Type Natriuretic Pept 71 pg/mL (0-125); Osmolality Calculated 293 mOsm/kg (285-295); Potassium 4.2 mmol/L (3.5-5.1); Sodium 141 mmol/L (136-145); Total Bilirubin 0.3 mg/dL (0.15-1.2); Total Protein 6.4 g/dL (6.6-8.7)
[2020-05-23 22:34] VITALS: BP 139/74; PULSE 62; RESP 15; O2SAT 96
--- NOTE | 2020-05-23 22:41 | W.ED.CHESTPA ---
HPI - Chest Pain General: Chief Complaint: Chest Pain Stated Complaint: high blood pressure, has aneurysm Time Seen by Provider: 05/23/20 20:36 Source: patient Mode of arrival: ambulatory Limitations: no limitations History of Present Illness: HPI narrative: This is a 74-year-old gentleman with a history of a AAA who is being planned for evaluation by the vascular surgeon later this week. He states that over the last few days he has been having episodes of dizziness, chest pain, and an unsteady gait. Today he developed more chest pain and he noticed that his blood pressure was markedly elevated which she had been told was dangerous for his aneurysm so he came to the emergency department to be evaluated. He denies any nausea or diaphoresis. Denies any blood in the stool or urine. Denies back pain. MD complaint: chest pain Pertinent past history: known aortic aneurysm Onset (ago): day(s) (2) Timing of current episode: episodic Prior episodes: Yes Onset: during rest Pain location: left chest Pain radiation: right arm and left arm Severity: moderate Quality: aching and heaviness Relieving factors: nothing Exacerbating factors: nothing Associated symptoms: Deny abdominal pain, diaphoresis, dyspnea, fever(s), leg edema, nausea, palpitations, sense of impending doom, syncope or vomiting Review of Systems General: Reports: 10 or more systems reviewed and unremarkable except in HPI and below Const: Denies: fever(s) or diaphoresis Card: Denies: palpitations or syncope Resp: Denies: dyspnea GI: Denies: abdominal pain, nausea or vomiting [facility] ED PFSH: Medical History Gastritis and duodenitis GERD (gastroesophageal reflux disease) Neuropathy Peripheral neuropathy Surgical History History of back surgery Hx of appendectomy Hx of cholecystectomy Hx of knee surgery Hx of neck surgery Family History Denies family history of Anesthesia complication Bleeding disorder Social History Smoking and tobacco status: former smoker Second hand smoke exposure: Yes Physical Exam Const: COMMON NORMALS: no acute distress, average body habitus, patient oriented x3, no limitations, healthy appearing, alert and well nourished HENMT: COMMON NORMALS: normocephalic, atraumatic and moist oral mucous membranes HEAD & SCALP: normocephalic and atraumatic Neck/C-Spine: COMMON NORMALS: no meningeal signs and no JVD Resp: COMMON NORMALS: normal respiratory effort, No retractions, No use of accessory muscles, clear to auscultation bilaterally and percussion normal AUSCULTATION: clear to auscultation bilaterally PERCUSSION: percussion normal Cardio: COMMON NORMALS: no JVD, regular rate, regular rhythm, S1 normal heart sound present, S2 normal heart sound present, No gallops present (Cardio), No clicks present (Cardio), No murmurs present (Cardio), No rub (Cardio) and Peripheral pulses 2+ throughout RATE: regular rate RHYTHM: regular rhythm HEART SOUNDS: S1 normal heart sound present and S2 normal heart sound present PERIPHERAL PULSES: Peripheral pulses 2+ throughout GI: COMMON NORMALS: Normal to inspection, nondistended, normoactive bowel sounds present, Soft to palpation, non-tender, No hepatosplenomegaly present, no masses and no bruits PALPATION: Yes Soft to palpation and Yes No hepatosplenomegaly present Extremity: COMMON NORMALS: normal to inspection, full ROM, capillary refill normal, no calf tenderness and no pedal edema Neuro: COMMON NORMALS: patient oriented x3 SENSORIUM/ORIENTATION: Yes alert MENINGEAL SIGNS: Yes no meningeal signs Skin: COMMON NORMALS: no rashes or lesions noted, no wounds, turgor normal, no jaundice, no petechiae and no mottling GENERAL SKIN EXAM: no rashes or lesions noted and turgor normal Course Reevaluation(s): Reevaluation #1: Discussed his lab and imaging findings with him. Negative for acute findings. Discussed the CT findings with him, the aneurysm is not any bigger and it remains stable. Advised that he follow-up with his primary care provider tomorrow for medication adjustment to get a better control of his blood pressure. He voiced understanding and he is in agreement with the plan. Time: 23:20 Vital Signs: Vital signs: Vital Signs Temperature 97.7 F 05/23/20 20:15 Pulse Rate 62 05/23/20 22:34 Respiratory Rate 15 05/23/20 22:34 Blood Pressure 139/74 05/23/20 22:34 Pulse Oximetry 96 05/23/20 22:34 MDM - Chest Pain MDM Narrative: Medical decision making narrative: 74-year-old male who presents to the emergency department with elevated blood pressure and chest pain. He has a history of a AAA and is being worked up by vascular surgery. Evaluation in the emergency department is unremarkable and his aneurysm is stable and unchanged. He is discharged home with no new medications. Medical Records: Attestation: I reviewed the patient's medical records. Lab Data: Attestation: I reviewed the patient's lab results. Labs: Lab Results 05/23/20 05/23/20 05/23/20 Range/Units 21:09 21:09 21:09 WBC 8.8 (4.0-10.0) 10^3/ uL RBC 4.96 (4.1-5.3) 10^6/u L Hgb 14.2 (11.7-16.6) g/dL Hct 43.3 (42.0-52.0) % MCV 87.3 (80-94) fL MCH 28.6 (28.0-34.0) pg MCHC 32.8 (30.0-36.0) g/dL RDW 13.6 (12.1-15.1) % Plt Count 185 (130-400) 10^3/c mm MPV 12.8 H (7.4-10.4) fL Neut % (Auto) 64.4 % Lymph % (Auto) 23.6 % Sequoyah % (Auto) 7.4 % Eos % (Auto) 3.6 % Baso % (Auto) 0.8 % Neut # (Auto) 5.66 (1.8-7.7) 10^3/u L Lymph # (Auto) 2.1 (0.8-4.8) 10^3/u L Sequoyah # (Auto) 0.7 (0.2-0.9) 10^3/u L Eos # (Auto) 0.3 (0.0-0.8) 10^3/u L Baso # (Auto) 0.1 (0.0-0.1) 10^3/u L Nucleated RBC % (a uto) 0 % Nucleated RBCs # 0.0 /100WBC Sodium 141 (136-145) mmol/L Potassium 4.2 (3.5-5.1) mmol/L Chloride 106 (98-107) mmol/L Carbon Dioxide 25 (22-29) mmol/L Anion Gap 14.2 (5-19) BUN 17 (8-23) mg/dL Creatinine 1.2 (0.7-1.2) mg/dL GFR Calculation Not Reportable Glucose 94 (65-115) mg/dL Calculated Osmolal ity 293 (285-295) mOsm/k g Calcium 9.0 (8.5-10.5) mg/dL Total Bilirubin 0.3 (0.15-1.2) mg/dL AST 18 (0-40) U/L ALT 17 (0-41) U/L Alkaline Phosphata se 59 (40-130) IU/L Troponin T Baselin e 7 (0-15) ng/L Troponin T 120 Min manzanita (0-15) ng/L Delta Troponin T (0-10) ABS# NT-Pro-B Natriuret Pep 71 (0-125) pg/mL Total Protein 6.4 L (6.6-8.7) g/dL Albumin 4.7 (3.5-5.2) g/dL Globulin 1.7 (1.3-4.6) g/dL 05/23/20 Range/Units 22:45 WBC (4.0-10.0) 10^3/ uL RBC (4.1-5.3) 10^6/u L Hgb (11.7-16.6) g/dL Hct (42.0-52.0) % MCV (80-94) fL MCH (28.0-34.0) pg MCHC (30.0-36.0) g/dL RDW (12.1-15.1) % Plt Count (130-400) 10^3/c mm MPV (7.4-10.4) fL Neut % (Auto) % Lymph % (Auto) % Sequoyah % (Auto) % Eos % (Auto) % Baso % (Auto) % Neut # (Auto) (1.8-7.7) 10^3/u L Lymph # (Auto) (0.8-4.8) 10^3/u L Sequoyah # (Auto) (0.2-0.9) 10^3/u L Eos # (Auto) (0.0-0.8) 10^3/u L Baso # (Auto) (0.0-0.1) 10^3/u L Nucleated RBC % (a uto) % Nucleated RBCs # /100WBC Sodium (136-145) mmol/L Potassium (3.5-5.1) mmol/L Chloride (98-107) mmol/L Carbon Dioxide (22-29) mmol/L Anion Gap (5-19) BUN (8-23) mg/dL Creatinine (0.7-1.2) mg/dL GFR Calculation Glucose (65-115) mg/dL Calculated Osmolal ity (285-295) mOsm/k g Calcium (8.5-10.5) mg/dL Total Bilirubin (0.15-1.2) mg/dL AST (0-40) U/L ALT (0-41) U/L Alkaline Phosphata se (40-130) IU/L Troponin T Baselin e (0-15) ng/L Troponin T 120 Min manzanita 7.33 (0-15) ng/L Delta Troponin T 0.33 (0-10) ABS# NT-Pro-B Natriuret Pep (0-125) pg/mL Total Protein (6.6-8.7) g/dL Albumin (3.5-5.2) g/dL Globulin (1.3-4.6) g/dL Imaging Data^: Other CT: Attestation: I personally reviewed and interpreted this imaging study as follows: Radiologist's impression: [address] [address] [address] Scan Report Signed Patient: Rima Nath #: [id number] : 6Acct#:[id number] Age/Sex: 74 / MADM Date: 05/23/20 Loc: ERRoom/Bed: Attending Dr: Ordering Provider/Ordering MD: Becky John MD, [facility] [place] Date of Service: 05/23/20 Procedure(s): CT angio chest abdomen pelvis Accession Number(s): [id number] Report Number: [id number] PROCEDURE INFORMATION: Exam: CTA Chest With and Without Contrast Exam date and time: 05/23/2020 9:03 PM Age: 74 years old Clinical indication: Pain; Other: Cp/ elevated BP; Prior surgery; Surgery type: Neck, appy, gb, back; Additional info: Chest pain, history of aaa TECHNIQUE: Imaging protocol: Computed tomographic angiography of the chest with contrast. 3D rendering (Not supervised by radiologist): MIP and/or 3D reconstructed images were created and reviewed. Total images: 1867 COMPARISON: CT angio abdomen pelvis [id number] 05/11/2020 9:04 AM FINDINGS: Pulmonary arteries: Suboptimal pulmonary arterial contrast enhancement. No grossly visible central pulmonary embolism/pulmonary arterial thrombus. Aorta: The thoracic aorta is nonaneurysmal. No visible intimal flap or dissection. Moderate arterial sclerotic disease. Mild intramural thrombus without occlusion. Other arteries: Common origin of the left vertebral artery off the aortic arch which is a normal anatomical variant. Lungs: No visible active interstitial or alveolar airspace disease. Calcified granulomas of antecedent disease. Rare bullous/bleb. Evidence of mild air trapping of COPD/chronic bronchitis. Pleural spaces: Unremarkable. No pneumothorax. No pleural effusion. Heart: Three vessel coronary artery disease. No cardiomegaly. Left ventricular prominence. No visible pericardial effusion. Mediastinal space: Patulous esophagus. Lymph nodes: No definitive evidence of active mediastinal or hilar lymphadenopathy. There are calcified hilar complexes of antecedent granulomatous disease present. Bones/joints: No visible active or acute osseous pathology. Evidence of a cervical fusion. Soft tissues: Unremarkable. IMPRESSION: 1. No visible evidence of acute cardiopulmonary/cardiothoracic pathologic process. 2. Other nonurgent, nonemergent, chronic, and age related findings as detailed in text above. PROCEDURE INFORMATION: Exam: CTA Abdomen and Pelvis With Contrast Exam date and time: 05/23/2020 9:03 PM Age: 74 years old Clinical indication: Pain; Other: Cp/ elevated BP; Prior surgery; Surgery type: Neck, appy, gb, back; Additional info: Chest pain, history of aaa TECHNIQUE: Imaging protocol: Computed tomographic angiography of the abdomen and pelvis with contrast material. 3D rendering (Not supervised by radiologist): MIP and/or 3D reconstructed images were created by the technologist. Radiation optimization: All CT scans at this facility use at least one of these dose optimization techniques: automated exposure control; mA and/or kV adjustment per patient size (includes targeted exams where dose is matched to clinical indication); or iterative reconstruction. Contrast material: VISI 320; Contrast volume: 95 ml; Contrast route: INTRAVENOUS (IV); COMPARISON: CT angio abdomen pelvis [id number] 05/11/2020 9:04 AM RADIATION DOSE METRICS: Total DLP (mGy-cm): 1708.99 FINDINGS: Aorta: Mild infrarenal fusiform aneurysmal dilatation of the distal abdominal aorta that appear stable since 05/11/2020 measuring approximately 41 mm in AP diameter in 38 mm in transverse diameter. Moderately advanced arteriosclerosis. Mild intramural thrombus without occlusion. No intimal flap or dissection. Celiac trunk and mesenteric arteries: No occlusion or significant stenosis. Separate origin of the hepatic and splenic arteries off the abdominal aorta Renal arteries: No occlusion or significant stenosis. Right iliac arteries: No occlusion or significant stenosis. Left iliac arteries: No occlusion or significant stenosis. Liver: No visible hepatic mass or cystic structure. Gallbladder and bile ducts: Status post cholecystectomy. Pancreas: Pancreas unremarkable. No visible pancreatic ductal ectasia. Spleen: Spleen unremarkable. Adrenal glands: Adrenal glands unremarkable. Kidneys and ureters: No hydronephrosis or perinephric fluid bilaterally. Stable simple renal cortical cysts. No follow-up recommended. No visible nephrolithiasis. Stomach and bowel: Diverticulosis coli without evidence for acute diverticulitis. Nonobstructive bowel pattern. No visible adynamic or reactive ileus. Appendix: Status post appendectomy. Intraperitoneal space: No visible pneumoperitoneum or intraperitoneal ascites. Lymph nodes: Unremarkable. No enlarged lymph nodes. Urinary bladder: Unremarkable. No mass. Reproductive: Marked prostate hypertrophy. Bones/joints: No visible active or acute osseous pathology. Degenerative disc disease L4/L5 and L5/S1. Soft tissues: Unremarkable. CT/CT angio chest abdomen pelvis IMPRESSION: 1. Stable appearing infrarenal fusiform abdominal aortic aneurysm without intimal flap or dissection. 2. No visible evidence of acute abdominal or pelvic pathologic process. 3. Rather extensive diverticulosis coli without evidence for acute diverticulitis. 4. Other nonurgent, nonemergent, chronic, and age related findings as detailed in text above. Radiation Dose CTDIVOL = (mGy): DLP = 1708.99 (mGy-cm) Dictated By:Cal Denise Signed By:Cal DeniseSignpeyton Date/Time:05/23/202225 DD/ 24 EKG Data^: EKG 1: Attestation: I personally reviewed and interpreted this EKG as follows: EKG interpretation date: 05/23/20 EKG interpretation time: 20:23 Prior EKG tracings: not available for review Interpretation: Sinus rhythm with occasional supraventricular premature complexes. Heart rate 60 bpm. Incomplete right bundle branch block. Left anterior fascicular block. No ST changes. EKG 2: Attestation: I personally reviewed and interpreted this EKG as follows: EKG interpretation date: 05/23/20 EKG interpretation time: 21:33 Prior EKG tracings: available for review Interpretation: Sinus bradycardia. Heart rate 58 bpm. Incomplete right bundle branch block. Left anterior fascicular block. No ST changes. No significant changes from earlier Discharge Plan Discharge Patient Disposition: Home Clinical Impression: Chest pain, non-cardiac, Hypertensive urgency AAA (abdominal aortic aneurysm) Qualifiers: Presence of rupture: without rupture Qualified Code(s): I71.4 - Abdominal aortic aneurysm, without rupture Condition: Stable Prescriptions: Continued gabapentin 400 mg capsule 400 mg PO TID 90 Days Qty: 270 RF: 1 lisinopril 5 mg tablet 2.5 mg PO DAILY Qty: 30 RF: 2 fenofibrate nanocrystallized 145 mg tablet See Rx Instructions .ROUTE .COMPLEX Qty: 90 RF: 0 lansoprazole 30 mg capsule,delayed release(DR/EC) 30 mg PO DAILY RF: 0 Discharge Orders: Discharge ED (Routine); Ordered 05/23/20 Ordered By: Becky John Referrals: Gely Espinosa FNP [Primary Care Provider] - 1-3 days Discharge Diet: Low Salt Discharge Activity: Increase activity as tolerated Patient Instructions: Chest Pain (ED), Abdominal Aortic Aneurysm (GEN), Hypertensive Crisis (ED) Activity Restrictions/Additional Instructions: Return for any new or worsening symptoms. Follow-up with your primary care provider within 3 days, you probably need to have your medications for your blood pressure adjusted to achieve better control. Consume a low-salt diet. Coding Level of Care Code ED Sign Builder for Chg Ernie
[2020-05-23 23:16] LABS: Troponin 5 2HR 7.33 ng/L (0-15); Troponin 5 2HR Delta 0.33 ABS# (0-10)
== END 2020-05-23 23:35 | disposition home or self-care (01) ==
PROVIDERS: Physician Assistant; Emergency Provider Family Medicine; PCP Nurse Practitioner Family
DX: I71.4 Abdominal aortic aneurysm, without rupture (principal); R07.89 Other chest pain; I16.0 Hypertensive urgency; Z77.22 Contact with and (suspected) exposure to environmental tobacco smoke (acute) (chronic)
CPT/HCPCS: 36415; 71045; 71275; 74174; 80053; 83880; 84484; 85025; 93005; 99284; Q9967

== ENCOUNTER → 2020-06-03 10:59 | Outpatient (BNVA) | payer MEDICARE, SELFPAY | PROVIDERS: PCP Nurse Practitioner Family; Visit Provider Nurse Practitioner Family | DX: R53.83 Other fatigue (principal); M25.50 Pain in unspecified joint; W57.XXXA Bitten or stung by nonvenomous insect and other nonvenomous arthropods, initial encounter; J01.11 Acute recurrent frontal sinusitis; S80.862A Insect bite (nonvenomous), left lower leg, initial encounter | CPT/HCPCS: 80053; 85025; 85651; 86618; 86666; 86757 ==

== ENCOUNTER → 2020-06-08 13:28 | Outpatient (BNVA) | payer MEDICARE, SELFPAY | PROVIDERS: PCP Nurse Practitioner Family; Visit Provider Nurse Practitioner Family | DX: M54.9 Dorsalgia, unspecified (principal) | CPT/HCPCS: 81000 ==

== ENCOUNTER 2020-07-08 08:43 | Outpatient (CLI) | payer MEDICARE, SELFPAY ==
[2020-07-08 08:48] VITALS: BMI 24.3
--- NOTE | 2020-07-08 09:20 | ECG_ITS ---
[facility] Test Date: 2020-07-08 Pat Name: Cong Nath Department: Room: Gender: Male [employer]: Ramonita Melendez : 1945 Requested By: Pedrito Bajwa Order Number: [id number] Reading MD: Kayleigh Liu M.D. Interpretive Statements NAME OF STUDY: LEXISCAN SESTAMIBI STRESS TEST INDICATION: Chest Pain PROCEDURE: At the baseline, the blood pressure was 125/70 mmHg, oxygen saturation 97% with a heart rate of 54 bpm. The electrocardiogram showed sinus bradycardia, normal axis with nonspecific T wave abnormality. The Lexiscan was infused over a period of 20 seconds. A total of 0.4 milligrams of Lexiscan was infused. The stress phase was continued for a total of 5 minutes. Heart rate at the end of the stress phase was 93 bpm, oxygen saturation 97% with a blood pressure of 131/74 mmHg. The EKG at the peak infusion revealed sinus rhythm with no significant ST-T wave changes. Sestamibi was injected 20 seconds after the Lexiscan infusion. Blood pressure at the end of the recovery phase was 163/80 mmHg, oxygen saturation 96% with a heart rate of 86 beats per minute. CONCLUSION: 1. No significant EKG changes with the LexiScan infusion. 2. No LexiScan induced chest pain or cardiac arrhythmia. 3. Normal blood pressure and heart rate response. 4. Sestamibi/sestamibi perfusion scan pending; see separate report. Electronically Signed On 07-09-2020 18:17:44 CDT by Kayleigh Liu M.D. [id number]
--- NOTE | 2020-07-08 09:21 | NMCV_ITS ---
NM yoly perf SPECT r/s* [id number] Cong Nath Age: 74 Gender: M : 1945 Exam Date: 07/08/2020 09:21 Ordering Phys: Pedrito Bajwa MD ([email or web address]) Technologist: KATELIN Asencio Exam Location: [facility] Indications: CHEST PAIN STRESS TEST [facility] IMAGE PROTOCOL Rest/Stress 1 Lexiscan Day Radiopharmaceutical Dose (mCi) Administration Site Administered by Rest: Tc-99m 10.8 IV KATELIN Armendariz Sestamibi Stress:Tc-99m 32.7 IV KATELIN Armendariz Sestamibi Rest: 08-Jul-2020 120 Discovery 630 Stress: 08-Jul-2020 30 Discovery 630 0.4mg Lexiscan. Images obtained in supine and prone position. SPECT RESULTS Technical Quality: Excellent Raw Data Analysis: Normal Image Corrections: No attenuation or motion correction applied Summed Stress Score: 3 Summed Rest Score: 4 Summed Difference Score: 1 PERFUSION FINDINGS There is a small to moderate sized, mostly fixed perfusion defect in the apical inferior and mid inferior cool. 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 Mild hypokinesis of the inferior wall is noted IMPRESSIONS 1. 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 LV systolic function is normal. Mild hypokinesis of the inferior wall is seen Clayton Bowles MD (Electronically Signed) Final Date: 09 Jul 2020 10:17 S
[2020-07-08 11:58] VITALS: BP 127/85; PULSE 85
[2020-07-08] MEDS: regadenoson 0.4 Mg/5 ml Syringe IVP (12:00)
[2020-07-08] MEDS: ondansetron 2 mg/ML SDV 2 mL 4 MG IVP (12:02)
== END 2020-07-08 08:44 | disposition home or self-care (01) ==
PROVIDERS: PCP Nurse Practitioner Family; Visit Provider Internal Medicine Cardiovascular Disease
DX: R07.9 Chest pain, unspecified (principal)
CPT/HCPCS: 78452; 93017; A9500; J2405; J2785

== ENCOUNTER → 2020-07-20 14:52 | Outpatient (BNVA) | payer MEDICARE, SELFPAY | PROVIDERS: PCP Nurse Practitioner Family; Visit Provider Specialist | DX: G62.89 Other specified polyneuropathies (principal); F17.290 Nicotine dependence, other tobacco product, uncomplicated | CPT/HCPCS: 95909 ==

== ENCOUNTER 2020-09-08 12:22 | Outpatient (CLI) | payer MEDICARE, SELFPAY ==
--- NOTE | 2020-09-08 13:00 | CT_ITS ---
WS: [id number] Exam: CT angio abdomen pelvis [id number] Date/Time of Exam: 09/08/2020 12:42 PM Reason For Exam: I71.4 - Abdominal aortic aneurysm, without rupture DLP: 1009.[address] scans at [facility] use at least one of these dose optimization techniques: automat ed exposure control; mA and/or kV adjustment per patient size (includes targeted exams where dose is matched to clinical indication); or iterative reconstruction. CTA of the abdomen and pelvis with contrast. Compared to previous exam 05/23/2020. infrarenal abdominal aortic aneurysm is noted measuring 4.1 cm in AP diameter and 3.8 cm in transvers e diameter. No change. No sign of dissection or intimal flap. The bilateral renal arteries, SMA, and celiac are all patent. The SANDRA is not definitely seen. Extensive atherosclerotic plaquing of the abd ominal aorta is noted. The bilateral common iliac arteries are heavily calcified but patent. The inte rnal and external iliac arteries are patent. The bilateral common femoral arteries and superficial fe moral arteries are patent as visualized. The lower lung zones are clear. Dependent changes in the posterior right lung base. The liver, spleen , stomach and pancreas appear normal. Surgically absent gallbladder. The portal vein and IVC are ramirez nt. Normal adrenal glands. Bilateral renal cysts. The kidneys are otherwise unremarkable. No free air . No lymphadenopathy. Small bowel loops are normal in caliber. Marked diverticulosis of the sigmoid a nd descending colon with additional scattered diverticuli in the transverse colon. No sign of acute d iverticulitis. Appendix appears to be surgically absent. No mass or lymphadenopathy in the pelvis. In tact urinary bladder. Prostatomegaly. No destructive bone lesions or significant abdominal wall defec ts. CT/CT angio abdomen pelvis [id number] IMPRESSION: 1. Stable-appearing infrarenal fusiform aneurysm in the abdominal aorta measuri ng about 4.1 cm at greatest AP diameter. No dissection or intimal flap seen. Th e major branches of the abdominal aorta are patent. The major pelvic arterial b ranches were also patent. 2. Moderately advanced colonic diverticulosis. No sign of acute diverticulitis. 3. No mass, lymphadenopathy or acute process in the abdomen or pelvis. Addition al nonemergent findings.
[2020-09-08 13:14] LABS: Blood Urea Nitrogen 16 mg/dL (8-23)
[2020-09-08] MEDS: iodixanol 320 mg/mL 100mL Btl IV (13:30)
== END 2020-09-08 12:23 | disposition home or self-care (01) ==
PROVIDERS: PCP Nurse Practitioner Family; Visit Provider Thoracic Surgery (Cardiothoracic Vascular Surgery)
DX: I71.4 Abdominal aortic aneurysm, without rupture (principal); K57.90 Diverticulosis of intestine, part unspecified, without perforation or abscess without bleeding
CPT/HCPCS: 74174; 82565; 84520; Q9967

== ENCOUNTER → 2021-05-11 09:17 | Outpatient (BNVA) | payer MEDICARE, SELFPAY | PROVIDERS: PCP Nurse Practitioner Family; Visit Provider Nurse Practitioner Family | DX: Z12.5 Encounter for screening for malignant neoplasm of prostate (principal); E78.5 Hyperlipidemia, unspecified; I10 Essential (primary) hypertension | CPT/HCPCS: 80053; 80061; G0103 ==

== ENCOUNTER 2021-05-17 14:03 | Emergency (ER) | payer MEDICARE, SELFPAY ==
--- NOTE | 2021-05-17 14:17 | ECG_ITS ---
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 Measurements Intervals [place] Rate: 57 P: 73 KS: 161 QRS: -63 QRSD: 102 T: 50 QT: 411 QTc: 401 Interpretive Statements SINUS BRADYCARDIA INCOMPLETE RIGHT BUNDLE BRANCH BLOCK [90+ ms QRS DURATION, TERMINAL R IN V1/V2, 40+ ms S IN I/aVL/V4/V5/V6] LEFT ANTERIOR FASCICULAR BLOCK [QRS AXIS <= -45, QR IN I, RS IN II] Compared to ECG 05/17/2021 14:18:44 Incomplete right bundle-branch block now present Atrial fibrillation no longer present Electronically Signed On 05-17-2021 18:22:12 CDT by Kayleigh Liu M.D. [id number]
--- NOTE | 2021-05-17 14:17 | XR_ITS ---
WS: [id number] XR chest 1V portable [id number] REASON FOR EXAM: chest pain FINDINGS: The chest is unchanged compared to 05/23/2020. Moderate tortuosity the thoracic aorta with normal heart size. Calcified granulomatous disease in both hemithoraces. No acute pulmonary parenchymal or pleural disease. Mild degenerative spondylosis in the mid and lower thoracic spine. XR/XR chest 1V portable [id number] IMPRESSION: No acute chest abnormality.
[2021-05-17 14:19] VITALS: BP 131/81; PULSE 70; RESP 14; TEMP 36.4; O2SAT 96; BMI 25.6
[2021-05-17 14:24] VITALS: BP 136/80; PULSE 62; RESP 16; O2SAT 96
--- NOTE | 2021-05-17 16:17 | ECG_ITS ---
[facility] Test Date: 2021-05-17 Pat Name: Cong Nath Department: Room: Gender: Male Component Inspector: : 1945 Requested By: Roberto Brady Order Number: [id number] Nisha MD: Kayleigh Liu M.D. Measurements Intervals [place] Rate: 68 P: [place]: QRS: -67 QRSD: 101 T: 52 QT: 391 QTc: 417 Interpretive Statements ATRIAL FIBRILLATION LEFT ANTERIOR FASCICULAR BLOCK [QRS AXIS <= -45, QR IN I, RS IN II] Compared to ECG 05/23/2020 21:33:04 Sinus bradycardia no longer present Incomplete right bundle-branch block no longer present Electronically Signed On 05-17-2021 18:29:41 CDT by Kayleigh Liu M.D. [id number]
[2021-05-17 16:46] LABS: Basophils # 0.1 10^3/uL (0.0-0.1); Basophils % 0.8 %; Eosinophils # 0.2 10^3/uL (0.0-0.8); Eosinophils % 3.1 %; Hematocrit 46.6 % (42.0-52.0); Hemoglobin 14.8 g/dL (11.7-16.6); Lymphocytes # 1.7 10^3/uL (0.8-4.8); Lymphocytes % 23.5 %; Mean Corpuscular HGB Conc 31.8 g/dL (30.0-36.0); Mean Corpuscular Hemoglobin 28.5 pg (28.0-34.0); Mean Corpuscular Volume 89.8 fl (80-94); Mean Platelet Volume 12.6 fL (7.4-10.4); Monocytes # 0.6 10^3/uL (0.2-0.9); Monocytes % 7.7 %; Neutrophils # 4.61 10^3/uL (1.8-7.7); Neutrophils % 64.5 %; Nucleated Red Blood Cells % 0 %; Platelet Count 184 10^3/cmm (130-400); Red Blood Count 5.19 10^6/uL (4.1-5.3); Red Cell Distribution Width 13.1 % (12.1-15.1); White Blood Count 7.2 10^3/uL (4.0-10.0)
[2021-05-17 17:21] LABS: Troponin(5th) Baseline 8 ng/L (0-15)
[2021-05-17 17:27] LABS: Alanine Aminotransferase 17 U/L (0-41); Albumin Level 4.9 g/dL (3.5-5.2); Alkaline Phosphatase 61 IU/L (40-130); Anion Gap 14.4 (5-19); Aspartate Amino Transferase 23 U/L (0-40); Blood Urea Nitrogen 18 mg/dL (8-23); Carbon Dioxide 24 mmol/L (22-29); Chloride 102 mmol/L (98-107); Glucose 94 mg/dL (65-115); Lipase 56 U/L (13-60); NT Pro B Type Natriuretic Pept 105 pg/mL (0-450); Osmolality Calculated 284 mOsm/kg (285-295); Potassium 4.4 mmol/L (3.5-5.1); Sodium 136 mmol/L (136-145); Total Bilirubin 0.4 mg/dL (0.15-1.2); Total Protein 6.9 g/dL (6.6-8.7)
--- NOTE | 2021-05-17 18:19 | W.ED.CHESTPA ---
HPI - Chest Pain General: Chief Complaint: Chest Pain Stated Complaint: chest pain Time Seen by Provider: 05/17/21 18:14 History of Present Illness: Mr. Nath is a 75-year-old gentleman with significant past medical history of hypertension, hyperlipidemia, GERD, known AAA who presents to the emergency department due to chest discomfort. He endorses sharp stabbing pain in the left lateral chest which radiates down the left arm. This is associated with generalized symptoms including malaise and fatigue. Symptom onset was a few days ago and subacute. Intensity symptoms is moderate to severe. Course of been worsening. No related trauma. No other specific changes in health, exacerbating, or alleviating factors identified.. Pertinent past history: known aortic aneurysm Onset (ago): hour(s) Prior episodes: Yes Onset: during rest Severity: moderate Review of Systems General: Reports: 10 or more systems reviewed and unremarkable except in HPI and below PFSH ED PFSH: Medical History AAA (abdominal aortic aneurysm) Gastritis and duodenitis GERD (gastroesophageal reflux disease) Neuropathy Peripheral neuropathy Surgical History History of back surgery Hx of appendectomy Hx of cholecystectomy Hx of knee surgery Hx of neck surgery Family History Other CAD (coronary artery disease) Cancer Diabetes Hyperlipidemia Hypertension Lung disease Stroke Denies family history of Clotting disorder Dementia Chronic kidney disease (CKD) Anesthesia complication Bleeding disorder Family history of premature coronary artery disease Social History Smoking and tobacco status: never smoked Second hand smoke exposure: Yes Alcohol intake: former Physical Exam Const: COMMON NORMALS: alert GENERAL APPEARANCE: cooperative and well developed HENMT: COMMON NORMALS: normocephalic and atraumatic HEAD & SCALP: normocephalic and atraumatic Eye: COMMON NORMALS: conjunctivae normal CONJUNCTIVA: Yes conjunctivae normal SCLERA: sclerae normal Neck/C-Spine: COMMON NORMALS: supple GENERAL: Yes trachea midline Resp: COMMON NORMALS: clear to auscultation bilaterally EFFORT & INSPECTION: Yes able to speak in complete sentences AUSCULTATION: clear to auscultation bilaterally Cardio: COMMON NORMALS: regular rate and regular rhythm RATE: regular rate RHYTHM: regular rhythm OTHER: Symmetric bilateral radial pulses GI: COMMON NORMALS: Soft to palpation PALPATION: Yes Soft to palpation and No Tenderness to palpation present (GI) PERCUSSION: normal to percussion Extremity: GENERAL: Yes normal exam except as noted and No edema Neuro: COMMON NORMALS: moves all extremities SENSORIUM/ORIENTATION: Yes alert and No Orientation impaired Psych: COMMON NORMALS: mental status grossly normal and Normal thought process present THOUGHT PROCESS: Normal thought process present Course ED course: - Patient was seen and evaluated by me at bedside - Patient placed on cardiac monitors, IV access obtained - Initial evaluation notable for exam as above - Labs and xrays personally interpreted by me. EKG from 2113 personally interpreted by me and shows sinus bradycardia with mild irregularity. No STEMI. -Fluids and analgesia given - Labs notable for no significant hematologic or metabolic abnormalities to explain symptoms, creatinine is elevated above baseline which was discussed with the patient. Negative viral studies. No UTI. - Imaging notable for no lobar consolidation or pneumothorax. CT scans notable for mild growth without evidence of acute rupture of aortic aneurysm, no pathology identified in the chest. - Upon serial reexamination after treatment the patient was improved - Based on patient history, evaluation, and testing as interpreted the most likely cause of the patient's condition is unspecified chest pain.. Patient did have stress test on 07/08/2020. - The results of ED evaluation were discussed with the patient including prescriptions and/or symptomatic cares (if applicable) including appropriate and responsible use, followup plan, and return precautions. The patient verbalized understanding and felt safe for discharge. - Patient discharged in satisfactory condition. Note: Click bubbles or prepopulated dan in note writing are used for assistance with data collection and billing and are inherently more limited than narrative and other text portions of this note. Please use narrative for additional clinical history and defer to narrative/free test for any case of contradictory information. If information appears in only free text or click bubble it should be considered present or absent as reported. Please contact note typewriters functional tester for clarifications of clinical information or contradictory information. MDM is a brief summary, contradictory or erroneous seeming information should be clarified and full note should be reviewed. Vital Signs: Vital signs: Vital Signs Temperature 97.6 F 05/17/21 14:19 Pulse Rate 59 L 05/17/21 23:22 Respiratory Rate 16 05/17/21 23:22 Blood Pressure 124/75 05/17/21 23:22 Pulse Oximetry 94 05/17/21 23:22 MDM - Chest Pain Medical Decision Making 75-year-old gentleman with complex history including known AAA presenting with chest pain. No clear etiology identified on ED evaluation. Discussed elevated creatinine and need for hydration with patient including repeat labs. Satisfactory for outpatient management. Medical Records I reviewed the patient's medical records. Lab Data I reviewed the patient's lab results. : 05/17/21 16:22 05/17/21 16:22 Radiology Impressions Chest X-Ray 05/17/21 14:17 IMPRESSION: No acute chest abnormality. Chest/Abdomen/Pelvis CT 05/17/21 20:51 IMPRESSION: Negative CT chest. No acute abnormality. IMPRESSION: 1. Negative for acute abdominopelvic pathology. 2. Persistent mild growth of the fusiform abdominal aortic aneurysm. Continued short interval outpatient surveillance is necessary as the aneurysm sac is clearly growing in size over time. Outpatient vascular surgery consultation is recommended if not yet performed. COMMENTS: Consistent with the [place]'s Incidental Findings Committee white paper (J Am Win Radiol 2018): Any incidental renal lesion less than 1 cm or classified as too small to characterize, or any incidental cystic renal lesion characterized as simple-appearing, is likely benign. No follow-up imaging is recommended for these lesions per consensus recommendations based on imaging criteria. Laboratory Results WBC 7.2 10^3/uL (4.0-10.0) 05/17/21 16:22 RBC 5.19 10^6/uL (4.1-5.3) 05/17/21 16:22 Hgb 14.8 g/dL (11.7-16.6) 05/17/21 16: Hct 46.6 % (42.0-52.0) 05/17/21 16: MCV 89.8 fl (80-94) 05/17/21 16:22 MCH 28.5 pg (28.0-34.0) 05/17/21 16: MCHC 31.8 g/dL (30.0-36.0) 05/17/21 16: RDW 13.1 % (12.1-15.1) 05/17/21 16:22 Plt Count 184 10^3/cmm (130-400) 05/17/21 16:22 MPV 12.6 fL (7.4-10.4) H 05/17/21 16:22 Neut % (Auto) 64.5 % 05/17/21 16:22 Lymph % (Auto) 23.5 % 05/17/21 16:22 [place] % (Auto) 7.7 % 05/17/21 16:22 Eos % (Auto) 3.1 % 05/17/21 16:22 Baso % (Auto) 0.8 % 05/17/21 16:22 Neut # (Auto) 4.61 10^3/uL (1.8-7.7) 05/17/21 16: Lymph # (Auto) 1.7 10^3/uL (0.8-4.8) 05/17/21 16:22 [place] # (Auto) 0.6 10^3/uL (0.2-0.9) 05/17/21 16:22 Eos # (Auto) 0.2 10^3/uL (0.0-0.8) 05/17/21 16:22 Baso # (Auto) 0.1 10^3/uL (0.0-0.1) 05/17/21 16:22 Nucleated RBC % (auto) 0 % 05/17/21 16: Nucleated RBCs # 0.0 /100WBC 05/17/21 16:22 Sodium 136 mmol/L (136-145) 05/17/21 16:22 Potassium 4.4 mmol/L (3.5-5.1) 05/17/21 16: Chloride 102 mmol/L (98-107) 05/17/21 16:22 Carbon Dioxide 24 mmol/L (22-29) 05/17/21 16:22 Anion Gap 14.4 (5-19) 05/17/21 16:22 BUN 18 mg/dL (8-23) 05/17/21 16:22 Creatinine 2.0 mg/dL (0.7-1.2) H 05/17/21 16:22 GFR Calculation Not Reportable 05/17/21 16:22 Glucose 94 mg/dL (65-115) 05/17/21 16:22 Calculated Osmolality 284 mOsm/kg (285-295) L 05/17/21 16:22 Calcium 10.0 mg/dL (8.5-10.5) 05/17/21 16:22 Total Bilirubin 0.4 mg/dL (0.15-1.2) 05/17/21 16:22 AST 23 U/L (0-40) 05/17/21 16:22 ALT 17 U/L (0-41) 05/17/21 16:22 Alkaline Phosphatase 61 IU/L (40-130) 05/17/21 16:22 Troponin T Baseline 8 ng/L (0-15) 05/17/21 16:22 Troponin T 120 Minute 6.26 ng/L (0-15) 05/17/21 18:20 Delta Troponin T -1.74 ABS# (0-10) L 05/17/21 18:20 Troponin T Hi Sens 6Hr 7.85 ng/L (0-15) 05/17/21 21:33 Troponin T Hi Sens 6Hr Delta -0.15 ng/L (0-12) L 05/17/21 21:33 NT-Pro-B Natriuret Pep 105 pg/mL (0-450) 05/17/21 16:22 Total Protein 6.9 g/dL (6.6-8.7) 05/17/21 16:22 Albumin 4.9 g/dL (3.5-5.2) 05/17/21 16:22 Globulin 2.0 g/dL (1.3-4.6) 05/17/21 16:22 Lipase 56 U/L (13-60) 05/17/21 16:22 Urine Color Yellow (Yellow) 05/17/21 19:39 Urine Appearance Clear (CLEAR) 05/17/21 19:39 Urine pH 6 (5-7) 05/17/21 19:39 Ur Specific [place] 1.015 (1.005-1.030) 05/17/21 19:39 Urine Protein Neg (Negative) 05/17/21 19:39 Urine Glucose (UA) Norm (Normal) 05/17/21 19:39 Urine Ketones Negative (Negative) 05/17/21 19:39 Urine Blood Neg (Negative) 05/17/21 19:39 Urine Nitrate Negative (Negative) 05/17/21 19:39 Urine Bilirubin Neg (Negative) 05/17/21 19:39 Urine Urobilinogen Norm mg/dL (Negative) 05/17/21 19:39 Ur Leukocyte Esterase Negative (Negative) 05/17/21 19:39 Influenza Type A Ag Negative (Negative) 05/17/21 19:32 Influenza Type B Ag Negative (Negative) 05/17/21 19:32 SARS-CoV-2 Ag (Rapid) Negative (Negative) 05/17/21 19:32 Discharge Plan Discharge Patient Disposition: Home Clinical Impression: Chest pain, KAROLINA (acute kidney injury) Condition: Stable Prescriptions: New doxycycline hyclate 100 mg tablet 100 mg PO Q12H 10 Days Qty: 20 0RF No Action loratadine [Claritin] 10 mg tablet 10 mg PO DAILY Qty: 30 2RF pantoprazole [Protonix] 40 mg tablet,delayed release (DR/EC) 40 mg PO BID 90 Days Qty: 180 2RF gabapentin 400 mg capsule 400 mg PO DAILY Qty: 90 1RF lisinopril 5 mg tablet 5 mg PO BID 0RF fenofibrate nanocrystallized 145 mg tablet 145 mg PO DAILY 0RF Discharge Orders: Discharge ED (Routine); Ordered 05/17/21 Ordered By: Roberto Brady Referrals: Gely Espinosa FNP [Primary Care Provider] - Discharge Diet: Usual diet Discharge Activity: Increase activity as tolerated Patient Instructions: Chest Pain (ED), Acute Kidney Injury (DC), Nonruptured Abdominal Aortic Aneurysm (DC) Activity Restrictions/Additional Instructions: Thank you for visiting the emergency department. You were seen and evaluated for chest and arm pain. The exact cause of your symptoms is unclear. As discussed, you do have elevated creatinine. I recommend staying hydrated and have repeat labs checked within 1 week. Watch for decreased urine output and if you experience this return to the emergency department. Your aortic aneurysm does continue to slowly grow. Please follow-up with your cardiovascular surgeon regarding this. Please follow-up with your primary care provider. 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 Please return to the emergency department for worsening symptoms or anything else that you are concerned about and feel needs emergency department evaluation. Coding Level of Care Code ED Credentialing Assistant for Una Klein
[2021-05-17 19:16] LABS: Troponin 5 2HR 6.26 ng/L (0-15)
[2021-05-17 19:26] VITALS: BP 128/75; PULSE 65; RESP 15; O2SAT 95
[2021-05-17 19:38] LABS: Troponin 5 2HR Delta -1.74 ABS# (0-10)
[2021-05-17 19:51] LABS: Add Urine Microscopic? NO; Charge for UA Resulting for Rev
[2021-05-17 19:58] LABS: Bilirubin Urine Neg (Negative); Blood Urine Neg (Negative); Glucose Urine UA Norm (Normal); Ketones Urine Negative (Negative); Leukocyte Esterase Urine Negative (Negative); Nitrate Urine Negative (Negative); Protein Urine Neg (Negative); Specific Gravity, Urine 1.015 (1.005-1.030); Urine Appearance Clear (CLEAR); Urine Color Yellow (Yellow); Urobilinogen Urine Norm (Negative); pH Urine 6 (5-7)
[2021-05-17 20:01] LABS: Influenza A by IFA Negative (Negative); Influenza B by IFA Negative (Negative); SARS Covid-2 Antigen Negative (Negative)
--- NOTE | 2021-05-17 20:17 | ECG_ITS ---
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 Measurements Intervals [place] Rate: 51 P: 69 ID: 163 QRS: -51 QRSD: 98 T: 44 QT: 432 QTc: 398 Interpretive Statements SINUS BRADYCARDIA WITH OCCASIONAL SUPRAVENTRICULAR PREMATURE COMPLEXES LEFT ANTERIOR FASCICULAR BLOCK [QRS AXIS <= -45, QR IN I, RS IN II] Compared to ECG 05/17/2021 17:19:54 Incomplete right bundle-branch block no longer present Electronically Signed On 05-18-2021 7:16:39 CDT by Kayleigh Liu M.D. [id number]
[2021-05-17] MEDS: lactated ringers 1,000 ML 999 ML IV (20:29)
--- NOTE | 2021-05-17 20:51 | CTR_ITS ---
PROCEDURE INFORMATION: Exam: CT Chest Without Contrast; Diagnostic Exam date and time: 05/17/2021 9:05 PM Age: 75 years old Clinical indication: Other: Creat of 2.0; Chest wall pain; Prior surgery; Surgery type: Appy. Gb. Back. ; Patient HX: C/O left lower chest pain. Devyn. ; Additional info: Ll chest pain, devyn ? obstruction TECHNIQUE: Imaging protocol: Diagnostic computed tomography of the chest without contrast. Radiation optimization: All CT scans at this facility use at least one of these dose optimization techniques: automated exposure control; mA and/or kV adjustment per patient size (includes targeted exams where dose is matched to clinical indication); or iterative reconstruction. COMPARISON: 1. CT angio chest abdomen pelvis 05/23/2020 9:[address] angio abdomen pelvis [id number] 09/08/2020 1:23 PM RADIATION DOSE METRICS: Total DLP (mGy-cm): 1191.77 FINDINGS: Thyroid: Symmetric thyroid lobes. Unremarkable thoracic esophagus. Lungs: Numerous tiny calcified granulomas throughout the lungs. Emphysematous lung changes. No focal airspace consolidation. Negative for endobronchial obstruction. No peripheral honeycombing. Pleural spaces: Unremarkable. No pneumothorax. No pleural effusion. Heart: Unremarkable. No cardiomegaly. No pericardial effusion. Aorta: Unremarkable. No aortic aneurysm. Lymph nodes: No mediastinal lymphadenopathy. Several nonenlarged partially calcified mediastinal lymph nodes consistent granulomas. Bones/joints: Partially visible lower cervical spine ACDF. No acute thoracic fractures are identified. Soft tissues: Unremarkable. PROCEDURE INFORMATION: Exam: CT Abdomen And Pelvis Without Contrast Exam date and time: 05/17/2021 9:05 PM Age: 75 years old Clinical indication: Other: Creat of 2.0; Chest wall pain; Prior surgery; Surgery type: Appy. Gb. Back. ; Patient HX: C/O left lower chest pain. Devyn. ; Additional info: Ll chest pain, devyn ? obstruction TECHNIQUE: Imaging protocol: Computed tomography of the abdomen and pelvis without contrast. Radiation optimization: All CT scans at this facility use at least one of these dose optimization techniques: automated exposure control; mA and/or kV adjustment per patient size (includes targeted exams where dose is matched to clinical indication); or iterative reconstruction. COMPARISON: 1. CT angio chest abdomen pelvis 05/23/2020 9:[address] angio abdomen pelvis [id number] 09/08/2020 1:[address] abdomen pelvis w con* [id number] 05/04/2019 3:23 PM RADIATION DOSE METRICS: Total DLP (mGy-cm): 1191.77 FINDINGS: Liver: Normal. No mass. Gallbladder and bile ducts: Cholecystectomy. Unremarkable biliary system. Pancreas: Normal. No ductal dilation. Spleen: Normal. No splenomegaly. Adrenal glands: Normal. No mass. Kidneys and ureters: Simple right renal upper pole cortical cyst. No dedicated imaging follow-up recommended. No hydronephrosis. No renal stones. Right renal cyst measures 3.3 cm x 3.2 cm. Simple left kidney lower pole cortical cyst measures 2.9 cm x 2.9 cm. Stomach and bowel: Diverticulosis coli without inflammatory bowel wall thickening. Negative for bowel obstruction. Negative for bowel perforation. Appendix: No evidence of appendicitis. Intraperitoneal space: Unremarkable. No free air. No significant fluid collection. Vasculature: Redemonstration of a fusiform mid abdominal aortic aneurysm which measures 4.4 cm transverse by 4.4 cm AP; previous 4.2 cm transverse by 4.3 cm AP. The aneurysm measured 3.9 cm transverse by 3.9 cm AP on 05/04/2019. Circumferential mural thrombus. No dissection. No periaortic hematoma. Lymph nodes: Unremarkable. No enlarged lymph nodes. Urinary bladder: Unremarkable as visualized. Reproductive: Moderate severity prostatomegaly. Bones/joints: Unremarkable. No acute fracture. Soft tissues: Unremarkable. CT/CT chest abd pel wo con IMPRESSION: Negative CT chest. No acute abnormality. IMPRESSION: 1. Negative for acute abdominopelvic pathology. 2. Persistent mild growth of the fusiform abdominal aortic aneurysm. Continued short interval outpatient surveillance is necessary as the aneurysm sac is clearly growing in size over time. Outpatient vascular surgery consultation is recommended if not yet performed. COMMENTS: Consistent with the [employer] [employer] [employer]'s Incidental Findings Committee white paper (J Am Win Radiol 2018): Any incidental renal lesion less than 1 cm or classified as too small to characterize, or any incidental cystic renal lesion characterized as simple-appearing, is likely benign. No follow-up imaging is recommended for these lesions per consensus recommendations based on imaging criteria.
[2021-05-17 21:57] LABS: Troponin 5 6HR 7.85 ng/L (0-15)
[2021-05-17 21:58] VITALS: BP 107/60; PULSE 57; RESP 16; O2SAT 95
[2021-05-17 22:05] LABS: Troponin 5 6HR Delta -0.15 ng/L (0-12)
[2021-05-17 23:22] VITALS: BP 124/75; PULSE 59; RESP 16; O2SAT 94
== END 2021-05-17 23:17 | disposition home or self-care (01) ==
PROVIDERS: Emergency Provider Emergency Medicine; PCP Nurse Practitioner Family
DX: R07.9 Chest pain, unspecified (principal); N17.9 Acute kidney failure, unspecified; I71.4 Abdominal aortic aneurysm, without rupture; K21.9 Gastro-esophageal reflux disease without esophagitis
CPT/HCPCS: 71045; 71250; 74176; 80053; 81003; 83690; 83880; 84484; 85025; 87426; 87804; 93005; 96360; 99284

== ENCOUNTER 2021-06-01 09:03 | Outpatient (CLI) | payer MEDICARE, SELFPAY ==
--- NOTE | 2021-06-01 10:00 | USCV_ITS ---
Cong Nath Age: 75 Gender: M : 1945 Exam Date: 06/01/2021 10:00 Ordering Phys: Dima Richards MD (Andy) ([email or web address] Technologist: OSIRIS Exam Location: [facility] [place] Indication: AAA HISTORY: Diameter (cm) AP x Transverse x Length Velocity (cm/s) Waveform Prox Aorta: 2.79 x 2.35 x 70.80 Mid Aorta: 4.43 x 4.73 x 5.51 79.30 Distal Aorta: 2.77 x 2.57 x 108.90 Right Iliac Prox: 0.84 x 1.02 x 108.90 Left Iliac Prox: 0.84 x 0.97 x 115.90 Stent Prox Landing x x Aneurysmal Sac Max x x Lt Lat Sac Dim Rt Lat Sac Dim Stent Dist Landing x x Right Iliac Stent x x Left Iliac Stent x x Right Renal Art Left Renal Art FINDINGS: Comparison:. 05/02/20. A fusiform abdominal aortic aneurysm is noted with a maximal diameter of 4.7 cm. Aneurysm extends over a length of 5.5 cm. Ectatic abdominal aorta with evidence of atherosclerotic plaque noted. There is evidence of atherosclerotic plaque no significan stenosis in the right common iliac artery. There is evidence of atherosclerotic plaque no significan stenosis in the left common iliac artery. CONCLUSIONS Mild increase in size of the AAA since 2020. Maximum diameter of 4.[address] Dottie Lazaro DO (Electronically Signed) Final Date: 01 June 2021 12:58 S
== END 2021-06-01 09:04 | disposition home or self-care (01) ==
LOC: RAD 09:08
PROVIDERS: PCP Nurse Practitioner Family; Visit Provider Thoracic Surgery (Cardiothoracic Vascular Surgery)
DX: I71.4 Abdominal aortic aneurysm, without rupture (principal)
CPT/HCPCS: 93978

== ENCOUNTER → 2021-06-06 08:22 | Outpatient (BNVA) | payer MEDICARE, SELFPAY | PROVIDERS: PCP Nurse Practitioner Family; Visit Provider Nurse Practitioner Family | DX: N39.0 Urinary tract infection, site not specified (principal); N28.1 Cyst of kidney, acquired; I71.4 Abdominal aortic aneurysm, without rupture | CPT/HCPCS: 81000 ==

== ENCOUNTER → 2021-06-08 10:13 | Outpatient (BNVA) | payer MEDICARE, SELFPAY | PROVIDERS: PCP Nurse Practitioner Family; Visit Provider Thoracic Surgery (Cardiothoracic Vascular Surgery) | DX: I71.4 Abdominal aortic aneurysm, without rupture (principal); F17.290 Nicotine dependence, other tobacco product, uncomplicated | CPT/HCPCS: 99213 ==

== ENCOUNTER → 2021-06-14 12:35 | Outpatient (BNVA) | payer MEDICARE, SELFPAY | PROVIDERS: PCP Nurse Practitioner Family; Visit Provider Surgery | DX: K21.9 Gastro-esophageal reflux disease without esophagitis (principal) | CPT/HCPCS: 99213 ==

== ENCOUNTER 2021-08-25 16:28 | Emergency (ER) | payer MEDICARE, SELFPAY ==
[2021-08-25 17:11] VITALS: BP 144/75; PULSE 141; RESP 16; TEMP 36.9; O2SAT 96
--- NOTE | 2021-08-25 17:55 | ECG_ITS ---
[facility] Test Date: 2021-08-25 Pat Name: Cong Nath Department: Room: Gender: Male Nuclear Technician: : 1945 Requested By: Lester Stein Order Number: [id number] Nisha MD: Clayton Bowles M.D. Measurements Intervals [place] Rate: 120 P: [place]: QRS: -69 QRSD: 94 T: 59 QT: 300 QTc: 425 Interpretive Statements ATRIAL FIBRILLATION WITH RAPID VENTRICULAR RESPONSE LEFT AXIS DEVIATION [QRS AXIS < -30] INCOMPLETE RIGHT BUNDLE BRANCH BLOCK [90+ ms QRS DURATION, TERMINAL R IN V1/V2, 40+ ms S IN I/aVL/V4/V5/V6] Compared to ECG 05/17/2021 21:14:50 Left-axis deviation now present Incomplete right bundle-branch block now present Sinus bradycardia no longer present Left anterior fascicular block no longer present Electronically Signed On 08-28-2021 17:56:31 CDT by Clayton Bowles M.D. [email or web address].[employer]/store/[id number] [email or web address]
--- NOTE | 2021-08-25 17:55 | XRR_ITS ---
PROCEDURE INFORMATION: Exam: XR Chest Exam date and time: 08/25/2021 6:00 PM Age: 75 years old Clinical indication: Other: Palpitations TECHNIQUE: Imaging protocol: Radiologic exam of the chest. Views: 1 view. COMPARISON: CT chest abd pel wo con 05/17/2021 9:05 PM FINDINGS: Lungs: Lungs are clear bilaterally. Pleural spaces: No pleural effusion. No pneumothorax. Heart/Mediastinum: TheStable mild enlargement of the cardiac silhouette. Mediastinal contours are unremarkable. Vasculature: Stable vascular calcifications in the aorta. Stable tortuosity of the aorta. Bones/joints: Stable changes consistent with prior fusion in the visualized cervical spine. Stable degenerative changes in the spine and shoulders. XR/XR chest 1V portable [id number] IMPRESSION: 1. No acute cardiopulmonary process. 2. Incidental/nonacute findings are listed in the report.
--- NOTE | 2021-08-25 18:28 | PC.NURSE ---
PT PLACED ON CONTINUOUS SPO2, NIBP, AND CM.
[2021-08-25 18:47] LABS: Basophils # 0.1 10^3/uL (0.0-0.1); Basophils % 0.5 %; Eosinophils # 0.3 10^3/uL (0.0-0.8); Eosinophils % 2.8 %; Hematocrit 43.1 % (42.0-52.0); Hemoglobin 14.4 g/dL (11.7-16.6); Lymphocytes # 1.9 10^3/uL (0.8-4.8); Lymphocytes % 20.5 %; Mean Corpuscular HGB Conc 33.4 g/dL (30.0-36.0); Mean Corpuscular Hemoglobin 29.7 pg (28.0-34.0); Mean Corpuscular Volume 88.9 fl (80-94); Mean Platelet Volume 12.8 fL (7.4-10.4); Monocytes # 0.7 10^3/uL (0.2-0.9); Monocytes % 7.8 %; Neutrophils # 6.26 10^3/uL (1.8-7.7); Nucleated Red Blood Cells % 0 %; Platelet Count 174 10^3/cmm (130-400); Red Blood Count 4.85 10^6/uL (4.1-5.3); Red Cell Distribution Width 13.2 % (12.1-15.1); White Blood Count 9.2 10^3/uL (4.0-10.0)
--- NOTE | 2021-08-25 19:13 | PC.NURSE ---
REPORT GIVEN TO [facility] ASSUMED CARE.
[2021-08-25 19:20] LABS: Troponin(5th) Baseline 7 ng/L (0-15)
[2021-08-25 19:28] LABS: Alanine Aminotransferase 17 U/L (0-41); Albumin Level 4.5 g/dL (3.5-5.2); Alkaline Phosphatase 64 IU/L (40-130); Anion Gap 16.3 (5-19); Aspartate Amino Transferase 18 U/L (0-40); Blood Urea Nitrogen 13 mg/dL (8-23); Calcium 9.3 mg/dL (8.5-10.5); Carbon Dioxide 24 mmol/L (22-29); Chloride 104 mmol/L (98-107); Globulin 2.3 g/dL (1.3-4.6); Glucose 124 mg/dL (65-115); NT Pro B Type Natriuretic Pept 2857 pg/mL (0-450); Osmolality Calculated 292 mOsm/kg (285-295); Potassium 4.3 mmol/L (3.5-5.1); Sodium 140 mmol/L (136-145); Total Bilirubin 0.2 mg/dL (0.15-1.2); Total Protein 6.8 g/dL (6.6-8.7)
--- NOTE | 2021-08-25 19:55 | ECG_ITS ---
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 Measurements Intervals [place] Rate: 96 P: VA: QRS: -63 QRSD: 95 T: 45 QT: 343 QTc: 435 Interpretive Statements ATRIAL FIBRILLATION INCOMPLETE RIGHT BUNDLE BRANCH BLOCK [90+ ms QRS DURATION, TERMINAL R IN V1/V2, 40+ ms S IN I/aVL/V4/V5/V6] LEFT ANTERIOR FASCICULAR BLOCK [QRS AXIS <= -45, QR IN I, RS IN II] Compared to ECG 08/25/2021 17:09:25 Left anterior fascicular block now present Left-axis deviation no longer present Electronically Signed On 08-28-2021 18:19:40 CDT by Clayton Bowles M.D. [id number]
[2021-08-25] MEDS: dilTIAZem 5 mg/mL SDV 5 mL 15 MG IVP (20:18)
[2021-08-25 20:34] LABS: Creatine Phosphokinase 59 U/L (39-308)
[2021-08-25 20:57] VITALS: BP 132/79; PULSE 124; RESP 20; O2SAT 94
[2021-08-25 21:00] LABS: Troponin 5 2HR 7.41 ng/L (0-15)
[2021-08-25 21:15] LABS: Troponin 5 2HR Delta 0.41 ABS# (0-10)
[2021-08-25] MEDS: metoprolol tartrate 1 mg/1 mL SDV 5 mL 5 MG IVP (21:15)
[2021-08-25 21:32] VITALS: BP 127/85; PULSE 79; RESP 16; O2SAT 93
[2021-08-25 22:07] VITALS: BP 127/85; PULSE 76; RESP 18; O2SAT 93
[2021-08-25] MEDS: metoprolol tartrate 25 mg Tablet PO (22:07)
--- NOTE | 2021-08-26 04:50 | ED_ITS ---
HPI - Dizziness General: Chief Complaint: Dizziness Stated Complaint: Dizzy, high heart rate Time Seen by Provider: 08/25/21 18:46 Source: patient History of Present Illness: HPI Narrative: 75-year-old gentleman who had a couple of episodes of near syncope at home. He notes intense dizziness and feeling like he was going to pass out, particularly with changes in position such as standing. He denies significant chest pain. He denies significant shortness of breath. He never had a syncopal episode. His heart rate is regular. He notes that he has not had irregular heart rates or atrial fibrillation in the past. MD elicited complaint: dizziness, lightheadedness and near syncope Pertinent past history: other Onset (ago): hour(s) Timing: gradual onset Severity: moderate Description: lightheadedness and near-syncope Exacerbating factors: movement/ambulation Relieving factors: nothing Associated symptoms: Reports nausea and nasal congestion; Denies chest pain, chills, cough, diaphoresis, fevers/chills, headache(s), short of breath or vomiting Associated neuro symptoms: Deny confusion, difficulty speaking, dysphagia, extremity weakness, facial numbness or facial weakness Review of Systems Const: Denies: chills or diaphoresis ENMT: Reports: nasal congestion Card: Denies: chest pain Resp: Denies: dyspnea or productive cough GI: Reports: nausea; Denies: vomiting or dysphagia Neuro: Denies: headache(s) or confusion PFS ED PFSH: Medical History AAA (abdominal aortic aneurysm) Gastritis and duodenitis GERD (gastroesophageal reflux disease) Neuropathy Peripheral neuropathy Surgical History History of back surgery Hx of appendectomy Hx of cholecystectomy Hx of knee surgery Hx of neck surgery Family History Other CAD (coronary artery disease) Cancer Diabetes Hyperlipidemia Hypertension Lung disease Stroke Denies family history of Clotting disorder Dementia Chronic kidney disease (CKD) Anesthesia complication Bleeding disorder Family history of premature coronary artery disease Social History Smoking and tobacco status: never smoked Second hand smoke exposure: Yes Alcohol intake: former Physical Exam Const: COMMON NORMALS: no acute distress GENERAL APPEARANCE: cooperative and comfortable; not ill appearing HENMT: COMMON NORMALS: normocephalic, atraumatic and Normal external nose present HEAD & SCALP: normocephalic and atraumatic FACE & SINUS: normal facial exam and face symmetric NOSE: Normal external nose present Eye: COMMON NORMALS: Equal, round and reactive pupils present and EOMs intact bilaterally PUPIL: Yes Equal, round and reactive pupils present Neck/C-Spine: GENERAL: Yes trachea midline Chest: CHEST: Yes Symmetrical chest wall rise Resp: COMMON NORMALS: normal respiratory effort, No use of accessory muscles and clear to auscultation bilaterally AUSCULTATION: clear to auscultation bilaterally Cardio: RATE: tachycardic RHYTHM: abnormal rhythm irregularly irregular GI: COMMON NORMALS: Normal to inspection, nondistended, normoactive bowel sounds present and non-tender Extremity: COMMON NORMALS: no pedal edema Neuro: KORY COMA SCALE: document GCS findings Kory coma scale eye opening: Spontaneous Kory coma scale verbal response: Orientated Kory coma scale motor response: Obey commands [place] coma scale total score: 15 Course Vital Signs: Vital signs: Vital Signs Temperature 98.5 F 08/25/21 17:11 Pulse Rate 76 08/25/21 22:07 Respiratory Rate 18 08/25/21 22:07 Blood Pressure 127/85 08/25/21 22:07 Pulse Oximetry 93 08/25/21 22:07 MDM - Dizziness Medical Decision Making Patient was found to be in atrial fibrillation with a rapid ventricular response, in the 130s to 150s. He responded somewhat to a bolus of diltiazem, and better to a bolus of 5 mg of IV metoprolol. His rate is controlled around 80. He did not convert. He does not have a prior history of atrial fibrillation. He wished to go home, but said that he would stay if he had to. With control of his rate, he needs a Holter monitor if going home. He declined aspirin treatment, as he says it causes bruising. His troponin did not elevate at 2 hours. He will be allowed discharged with orders for Holter monitor, and cardiology follow-up. He has seen Dr. López in the past Lab Data : 08/25/21 18:24 08/25/21 18:24 Radiology Impressions Chest X-Ray 08/25/21 17:55 IMPRESSION: 1. No acute cardiopulmonary process. 2. Incidental/nonacute findings are listed in the report. Laboratory Results WBC 9.2 10^3/uL (4.0-10.0) 08/25/21 18: RBC 4.85 10^6/uL (4.1-5.3) 08/25/21 18:24 Hgb 14.4 g/dL (11.7-16.6) 08/25/21 18: Hct 43.1 % (42.0-52.0) 08/25/21 18: MCV 88.9 fl (80-94) 08/25/21 18: MCH 29.7 pg (28.0-34.0) 08/25/21 18: MCHC 33.4 g/dL (30.0-36.0) 08/25/21 18: RDW 13.2 % (12.1-15.1) 08/25/21 18: Plt Count 174 10^3/cmm (130-400) 08/25/21 18: MPV 12.8 fL (7.4-10.4) H 08/25/21 18:24 Neut % (Auto) 68.0 % 08/25/21 18: Lymph % (Auto) 20.5 % 08/25/21 18: [place] % (Auto) 7.8 % 08/25/21 18: Eos % (Auto) 2.8 % 08/25/21 18: Baso % (Auto) 0.5 % 08/25/21 18: Neut # (Auto) 6.26 10^3/uL (1.8-7.7) 08/25/21 18: Lymph # (Auto) 1.9 10^3/uL (0.8-4.8) 08/25/21 18: [place] # (Auto) 0.7 10^3/uL (0.2-0.9) 08/25/21 18: Eos # (Auto) 0.3 10^3/uL (0.0-0.8) 08/25/21 18: Baso # (Auto) 0.1 10^3/uL (0.0-0.1) 08/25/21 18:24 Nucleated RBC % (auto) 0 % 08/25/21 18:24 Nucleated RBCs # 0.0 /100WBC 08/25/21 18:24 Sodium 140 mmol/L (136-145) 08/25/21 18:24 Potassium 4.3 mmol/L (3.5-5.1) 08/25/21 18:24 Chloride 104 mmol/L (98-107) 08/25/21 18:24 Carbon Dioxide 24 mmol/L (22-29) 08/25/21 18:24 Anion Gap 16.3 (5-19) 08/25/21 18:24 BUN 13 mg/dL (8-23) 08/25/21 18:24 Creatinine 1.4 mg/dL (0.7-1.2) H 08/25/21 18:24 GFR Calculation Not Reportable 08/25/21 18:24 Glucose 124 mg/dL (65-115) H 08/25/21 18:24 Calculated Osmolality 292 mOsm/kg (285-295) 08/25/21 18:24 Calcium 9.3 mg/dL (8.5-10.5) 08/25/21 18:24 Total Bilirubin 0.2 mg/dL (0.15-1.2) 08/25/21 18:24 AST 18 U/L (0-40) 08/25/21 18:24 ALT 17 U/L (0-41) 08/25/21 18:24 Alkaline Phosphatase 64 IU/L (40-130) 08/25/21 18:24 Creatine Kinase 59 U/L (39-308) 08/25/21 18:24 Troponin T Baseline 7 ng/L (0-15) 08/25/21 18:24 Troponin T 120 Minute 7.41 ng/L (0-15) 08/25/21 20:19 Delta Troponin T 0.41 ABS# (0-10) 08/25/21 20:19 NT-Pro-B Natriuret Pep 2857 pg/mL (0-450) H 08/25/21 18:24 Total Protein 6.8 g/dL (6.6-8.7) 08/25/21 18:24 Albumin 4.5 g/dL (3.5-5.2) 08/25/21 18:24 Globulin 2.3 g/dL (1.3-4.6) 08/25/21 18:24 Discharge Plan Discharge Patient Disposition: Home Clinical Impression: Atrial fibrillation Condition: Stable Prescriptions: New metoprolol tartrate 50 mg tablet 25 mg PO Q12H Qty: 60 0RF No Action fenofibrate nanocrystallized 145 mg tablet See Rx Instructions .ROUTE .COMPLEX Qty: 90 0RF Dose Instruction: TAKE 1 TABLET BY MOUTH ONCE DAILY FOR HYPERLIPIDEMIA. Rx Instructions: TAKE 1 TABLET BY MOUTH ONCE DAILY FOR HYPERLIPIDEMIA. pantoprazole 40 mg tablet,delayed release (DR/EC) See Rx Instructions .ROUTE .COMPLEX Qty: 90 0RF Dose Instruction: Take 1 tablet by mouth once daily Rx Instructions: Take 1 tablet by mouth once daily loratadine 10 mg tablet 10 mg PO DAILY Qty: 90 0RF gabapentin 400 mg capsule See Rx Instructions .ROUTE .COMPLEX Qty: 90 0RF Dose Instruction: Take 1 capsule by mouth once daily Rx Instructions: Take 1 capsule by mouth once daily lisinopril 5 mg tablet See Rx Instructions .ROUTE .COMPLEX Qty: 60 2RF Dose Instruction: Take 1 tablet by mouth twice daily Rx Instructions: Take 1 tablet by mouth twice daily Discharge Orders: Discharge ED (Routine); Ordered 08/25/21 Ordered By: Gage Hirsch Other Ambulatory Orders: ECG holter monitor 14 Days (Routine) Timeframe: 2 Days Facility: [facility] - Location: Radiology Ordered By: Gage Hirsch Referrals: Gely Espinosa FNP [Primary Care Provider] - 1-3 days Patient Instructions: A-fib (Atrial Fibrillation) (ED) Activity Restrictions/Additional Instructions: Check your heart rate and blood pressure twice daily for the next several days. Report numbers to your doctor. You will get a call about coming in to set up your Holter monitor on Saturday the order has already been placed. 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 Return for any episodes of continued passing out or near passing out, or development of chest discomfort, shortness of breath, or any other concerning symptoms Coding Level of Care Code ED Automobile Damage Appraiser for Una Klein
--- NOTE | 2021-08-28 11:04 | DCPLANNER ---
Addendum entered by Kyleigh Devi 10/27/21 11:55: Patient had a follow up appointment scheduled with heart care - patient did attend appointment. Addendum entered by Kyleigh Devi 09/05/21 13:48: Patient has a follow up appointment scheduled for Saturday, September 17, [address] at 3:[address] Bowles. Clinic will call patient with appointment information. Addendum entered by Kyleigh Devi 09/05/21 13:47: Patient had a follow up appointment scheduled for 08.29.21 for a holter monitor - patient did attend appointment. Original Note: agronomy manager had message to schedule an appointment for an outpatient halter monitor and a follow up appointment scheduled with cardiology. agronomy manager sent patients information to the front office staff at heart care. Patients information will be printed and reviewed. Clinic will call patient with appointment information.
== END 2021-08-25 22:08 | disposition home or self-care (01) ==
PROVIDERS: Physician Assistant; Emergency Provider Emergency Medicine; PCP Nurse Practitioner Family
DX: I48.20 Chronic atrial fibrillation, unspecified (principal); I45.2 Bifascicular block; K21.9 Gastro-esophageal reflux disease without esophagitis; R00.2 Palpitations; I71.4 Abdominal aortic aneurysm, without rupture; G62.9 Polyneuropathy, unspecified; Z77.22 Contact with and (suspected) exposure to environmental tobacco smoke (acute) (chronic)
CPT/HCPCS: 71045; 80053; 82550; 83880; 84484; 85025; 93005; 96374; 96375; 99285; J3490

== ENCOUNTER 2021-08-26 04:40 | Inpatient (IN) | payer MEDICARE, SELFPAY ==
[2021-08-26] VITALS (37 sets, daily range): BP systolic 83–139; BP diastolic 61–93; PULSE 75–127; RESP 12–918; TEMP 36.4–37.1; O2SAT 92–98; BMI 24.3
--- NOTE | 2021-08-26 05:04 | ED_ITS ---
HPI - Arrhythmia/Palpitations General: Chief Complaint: Arrhythmia/Palpitations Stated Complaint: heart is racing Time Seen by Provider: 08/26/21 04:58 Source: patient and family History of Present Illness: 75-year-old male seen last night in the emergency department for dizziness. He was found to be in atrial fibrillation with rapid ventricular response. He took his metoprolol when he got home and went to bed. He awoke around 330, and got up to use the restroom. In doing so, he was dizzy and lightheaded again. With return of his symptoms, he had been told to return to the ER, so he did. He still denies chest pain or shortness of breath. MD complaint: rapid heart beat, heart racing and palpitations Onset (ago): minute(s) Duration: constant Severity: similar to previous episodes Associated symptoms: Reports nausea and short of breath; Deny vomiting Review of Systems Const: Denies: fever(s) or chills Card: Reports: palpitations and irregular heart rhythm; Denies: chest pain Resp: Reports: dyspnea (mild) GI: Reports: nausea; Denies: vomiting or diarrhea PFSH ED PFSH: Medical History AAA (abdominal aortic aneurysm) followed by Dr Ferrell, 4.8 cm 08/27/21 Chronic sinusitis Cyst of right kidney Gastritis and duodenitis GERD (gastroesophageal reflux disease) HTN (hypertension) Hyperlipidemia Peripheral neuropathy Surgical History History of back surgery History of colonoscopy History of esophagogastroduodenoscopy (EGD) 2020 History of sinus surgery Hx of appendectomy Hx of cholecystectomy Hx of knee surgery Hx of neck surgery Family History Other CAD (coronary artery disease) Cancer Diabetes Hyperlipidemia Hypertension Lung disease Stroke Denies family history of Clotting disorder Dementia Chronic kidney disease (CKD) Anesthesia complication Bleeding disorder Family history of premature coronary artery disease Social History Smoking and tobacco status: never smoked Second hand smoke exposure: Yes Alcohol intake: former Physical Exam Const: GENERAL APPEARANCE: cooperative and well kempt NUTRITIONAL APPEARANCE: thin HENMT: COMMON NORMALS: normocephalic and Normal external nose present HEAD & SCALP: normocephalic FACE & SINUS: normal facial exam and face symmetric NOSE: Normal external nose present Eye: COMMON NORMALS: Equal, round and reactive pupils present and EOMs intact bilaterally PUPIL: Yes Equal, round and reactive pupils present Chest: CHEST: Yes Symmetrical chest wall rise Resp: COMMON NORMALS: normal respiratory effort, No use of accessory muscles and clear to auscultation bilaterally AUSCULTATION: clear to auscultation bilaterally Cardio: RATE: tachycardic RHYTHM: abnormal rhythm irregularly irregular GI: COMMON NORMALS: Normal to inspection, nondistended, normoactive bowel sounds present Extremity: COMMON NORMALS: no pedal edema Neuro: KORY COMA SCALE: document GCS findings Kory coma scale eye opening: Spontaneous Kory coma scale verbal response: Orientated Kory coma scale motor response: Obey commands [place] coma scale total score: 15 Psych: APPEARANCE: Yes well kempt Course Vital Signs: Vital signs: Vital Signs Temperature 98.4 F 08/27/21 15:38 Pulse Rate 112 H 08/27/21 15:38 Respiratory Rate 24 H 08/27/21 15:38 Blood Pressure 137/80 08/27/21 15:38 Pulse Oximetry 94 08/27/21 15:38 MDM - Arrhythmia/Palpitations Medical Decision Making Spoke with the hospitalist about this patient. He is in atrial fibrillation still, with RVR. Heart rate currently 120. He is given another dose of IV metoprolol, as his blood pressure is elevated as well, 140/111. He will be observed in the hospital on telemetry. Lab Data : 08/27/21 05:50 08/27/21 05:50 Radiology Impressions Chest/Abdomen/Pelvis CT 08/26/21 07:53 IMPRESSION: 1. No CT evidence of pneumonia. 2. Unchanged moderate coronary arterial atherosclerotic vascular calcifications. 3. No thoracic aortic dissection or aneurysm. IMPRESSION: 1. Unchanged moderate to severe atherosclerotic vascular calcifications of the abdominal aorta. Unchanged fusiform infrarenal abdominal aortic aneurysm with maximal axial dimension of 4.1 x 4.5 cm - given differences in measurement technique. The craniocaudal dimension is 6.5 cm. Follow-up imaging in 6-12 months is recommended. 2. Unchanged diffuse colonic diverticulosis, severe in the sigmoid colon region. No CT evidence of diverticulitis. 3. Unchanged moderate to severely enlarged prostate. Laboratory Results TSH 1.28 uIU/mL (0.27-4.20) 08/25/21 20:36 Discharge Plan Discharge Patient Disposition: Placed in Observation Admit Provider: Jeanine Rosario Clinical Impression: Atrial fibrillation Coding Level of Care Code ED Regulatory Specialist for Una Klein
[2021-08-26] MEDS: metoprolol tartrate 1 mg/1 mL SDV 5 mL 5 MG IVP (05:14)
--- NOTE | 2021-08-26 07:53 | CTR_ITS ---
PROCEDURE INFORMATION: Exam: CT Chest With Contrast; Diagnostic Exam date and time: 08/26/2021 9:16 AM Age: 75 years old Clinical indication: Abdominal pain; Other: HX of aaa; Other: Increased heart rate; Prior surgery; Surgery type: Back, appy, gb; Additional info: Chest pain, aaa, chest pain, new onset a fib, h/o increasing aaa TECHNIQUE: Imaging protocol: Diagnostic computed tomography of the chest with contrast. Radiation optimization: All CT scans at this facility use at least one of these dose optimization techniques: automated exposure control; mA and/or kV adjustment per patient size (includes targeted exams where dose is matched to clinical indication); or iterative reconstruction. Contrast material: OMNI 300; Contrast volume: 95 ml; Contrast route: INTRAVENOUS (IV); COMPARISON: CT chest abd pel wo con 05/17/2021 9:05 PM RADIATION DOSE METRICS: Total DLP (mGy-cm): 1673.38 FINDINGS: Trachea: The trachea is midline. Lungs: There are no regions of consolidation or interstitial lung disease. Unchanged scattered punctate calcified granulomas are seen in the lungs. Mild centrilobular emphysema is seen. Mild right lower lobe atelectasis is seen. Pleural spaces: No pneumothorax. No pleural effusion. Heart: The heart size is normal. No pericardial effusion. Unchanged moderate coronary arterial atherosclerotic vascular calcifications. Lymph nodes: No enlarged lymph nodes. Vasculature: Unchanged [id number] calcified and soft plaque is seen in the descending thoracic aorta. There is no thoracic aortic aneurysm or dissection. The origins of the great vessels appear unremarkable. Bones/joints: Postsurgical changes are seen status post prior lower anterior cervical disc fusion. There is associated artifact. Small degenerative osteophytes and moderate degenerative disc disease changes are seen in the midthoracic spine. Some degenerative changes of the sternomanubrial junction are also seen. There are no fractures. Soft tissues: Unremarkable. PROCEDURE INFORMATION: Exam: CT Abdomen And Pelvis With Contrast Exam date and time: 08/26/2021 9:16 AM Age: 75 years old Clinical indication: Abdominal pain; Other: HX of aaa; Other: Increased heart rate; Prior surgery; Surgery type: Back, appy, gb; Additional info: Chest pain, aaa, chest pain, new onset a fib, h/o increasing aaa TECHNIQUE: Imaging protocol: Computed tomography of the abdomen and pelvis with contrast. Radiation optimization: All CT scans at this facility use at least one of these dose optimization techniques: automated exposure control; mA and/or kV adjustment per patient size (includes targeted exams where dose is matched to clinical indication); or iterative reconstruction. Contrast material: OMNI 300; Contrast volume: 95 ml; Contrast route: INTRAVENOUS (IV); COMPARISON: CT chest abd pel wo con 05/17/2021 9:05 PM RADIATION DOSE METRICS: Total DLP (mGy-cm): 1673.38 FINDINGS: Liver: Normal liver attenuation. No mass. Gallbladder and bile ducts: Status post prior cholecystectomy. Unchanged mild central intrahepatic biliary ductal dilatation is seen. Unchanged dilated common bile duct is seen, measuring 1.4 cm. There is some distal tapering. There are no calcifications seen. Pancreas: Unremarkable CT appearance of the pancreatic parenchyma. No ductal dilatation. Spleen: Normal splenic parenchymal attenuation. No splenomegaly. Adrenal glands: Normal CT appearance of the adrenals. No mass. Kidneys and ureters: Unchanged simple left kidney upper pole, left kidney lower pole and right kidney upper pole cysts are seen. No hydronephrosis or ureterectasis. Stomach and bowel: The noncontrast opacified stomach appears unremarkable. The noncontrast opacified small bowel loops appear unremarkable. The noncontrast opacified loops of colon show diffuse colonic diverticulosis, severe in the region of the sigmoid colon. The rectum appears unremarkable. The lack of orally administered contrast material limits assessment. Appendix: The patient is status post prior appendectomy. Intraperitoneal space: No abdominal ascites. No free air. Multiple phleboliths are seen in the pelvis. Vasculature: Unchanged moderate to severe atherosclerotic vascular calcifications of the abdominal aorta are seen. Unchanged fusiform infrarenal abdominal aortic aneurysm is seen with maximal axial dimension of 4.1 x 4.5 cm - given differences in measurement technique. The craniocaudal dimension is 6.5 cm. Follow-up imaging in 6-12 months is recommended. Lymph nodes: No enlarged lymph nodes. Urinary bladder: There is no bladder wall thickening or debris. Reproductive: Unchanged moderate to severely enlarged heterogeneous attenuation prostate is seen with mass effect on the base of the bladder. Recommend correlation with clinical exam findings and PSA level assessment. Bones/joints: Severe L4-L5 and L5-S1 disc space narrowing is seen with some discogenic calcifications. Unchanged moderate bilateral hip degenerative changes are seen. Soft tissues: Unremarkable. CT/CT chest abd pel w con* IMPRESSION: 1. No CT evidence of pneumonia. 2. Unchanged moderate coronary arterial atherosclerotic vascular calcifications. 3. No thoracic aortic dissection or aneurysm. IMPRESSION: 1. Unchanged moderate to severe atherosclerotic vascular calcifications of the abdominal aorta. Unchanged fusiform infrarenal abdominal aortic aneurysm with maximal axial dimension of 4.1 x 4.5 cm - given differences in measurement technique. The craniocaudal dimension is 6.5 cm. Follow-up imaging in 6-12 months is recommended. 2. Unchanged diffuse colonic diverticulosis, severe in the sigmoid colon region. No CT evidence of diverticulitis. 3. Unchanged moderate to severely enlarged prostate.
--- NOTE | 2021-08-26 07:55 | USCV_ITS ---
Cong Nath Age: 75 Gender: M : 1945 Exam Date: 08/26/2021 10:42 Ordering Phys: Jeanien Rosario MD Technologist: MARTINEZ [place] [facility] [place] NEW ONSET A FIB BP: 127 / 86 HR: 86 Rhythm: Atrial fibrillation Technical Quality: Adequate MEASUREMENTS (Male / Female) Normal Values 2D ECHO LV Diastolic Diameter PLAX 3.8 cm 4.2 - 5.9 / 3.9 - 5.3 cm LV Systolic Diameter PLAX 2.9 cm IVS Diastolic Thickness 1.6 cm 0.6 - 1.0 / 0.6 - 0.9 cm IVS Systolic Thickness 1.7 cm LVPW Diastolic Thickness 1.5 cm 0.6 - 1.0 / 0.6 - 0.9 cm LVPW Systolic Thickness 1.7 cm LVOT Diameter 2.0 cm LV Ejection Fraction 2D Teich 48.5 % LV Ejection Fraction MOD 2C 63.1 % LV Ejection Fraction 2C AL 64.4 % LA Diameter 3.1 cm LA Width 3.4 cm LA Height 4.3 cm RA Width 3.9 cm RA Height 5.1 cm Aorta at Sinotubular Diameter 2.4 cm IVC Diameter 1.9 cm M-MODE Aortic Annulus Diameter 3.5 cm LA Ao Ratio MM 0.9 MV E Point Septal Separation 0.4 cm DOPPLER AV Peak Velocity 106.0 cm/s LVOT Peak Velocity 87.0 cm/s AV Area Cont Eq vti 3.3 cm squared AV Area Cont Eq pk 2.6 cm squared MV Peak Velocity 99.0 cm/s MV Area PHT 3.9 cm squared MV E' Velocity 52.5 cm/s Mitral E to MV E' Ratio 8.7 Mitral E to LV E' Lateral Ratio 9.5 Mitral E to LV E' Septal Ratio 8.1 TR Peak Velocity 196.3 cm/s TR Peak Gradient 15.4 mmHg TR Mean Velocity 144.5 cm/s TR Mean Gradient 9.3 mmHg TR Velocity Time Integral 57.6 cm TV Peak E Velocity 41.0 cm/s Right Atrial Pressure 3.0 mmHg Pulmonary Artery Systolic Pressu 18.4 mmHg PV Peak Velocity 76.0 cm/s RV Acceleration Time 0.1 s RV Ejection Time 0.3 s RV AcT/ET 0.5 FINDINGS Left Ventricle Normal left ventricular size. LV systolic function is normal with EF of 55-60%. No regional wall motion abnormalities. Diastolic function is indeterminate because of atrial fibrillation Right Ventricle The right ventricle is normal in size and function. Right Atrium The right atrium is normal in size. Left Atrium The left atrium is normal in size. Mitral Valve Structurally normal mitral valve without significant stenosis or prolapse. There is trace mitral regurgitation. Aortic Valve Structurally normal aortic valve without significant sclerosis or stenosis. There is mild aortic regurgitation. Tricuspid Valve Structurally normal tricuspid valve without significant stenosis. Mild tricuspid regurgitation. Pulmonary artery systolic pressure is normal. Pulmonic Valve Not well visualized Pericardium Normal pericardium without effusion. Aorta Normal ascending aorta dimension. IVC CONCLUSIONS LV systolic function is normal with EF of 55 to 60%. Diastolic function is indeterminate because of atrial fibrillation. Trace mitral regurgitation. Mild aortic regurgitation. Mild tricuspid regurgitation. No comparison studies are available Clayton Bowles MD (Electronically Signed) Final Date: 27 August 2021 11:39 S
--- NOTE | 2021-08-26 07:57 | PM.HP ---
Providers/Chief Complaint Admitting Physician: Jeanine Rosario MD Primary Care Provider: YOAV Johnston Chief Complaint: heart is racing History of Present Illness Cong Nath is a 75 year old male who presents with sudden onset palpitations that lasted yesterday afternoon. Patient was at rest when symptoms started, described as palpitations, central chest pressure, mild back pain. Denies dyspnea, nausea, vomiting. Denies excessive caffeine consumption though has been drinking multiple bottles of gatorade while working outdoors. EKG showed A fib with RVR with HR 150s which improved with metoprolol pushes. He preferred to go home, but then returned when he had palpitations again at ~4am. HR then noted to be a fib RVR in 120s. Denies past h/o A fib. no past h/o CAD. Review of Systems General: Reports: 10 or more systems reviewed and unremarkable except in HPI and below Const: Denies: fever(s), chills or body aches Eyes: Denies: change in vision, blurry vision or photophobia ENMT: Reports: hoarseness; Denies: throat pain, enlarged tonsils, odynophagia or nasal congestion Card: Denies: chest pain, palpitations, irregular heart rhythm, edema, swelling of feet/ankles, lightheadedness, pre-syncope, dyspnea on exertion or orthopnea Resp: Denies: dyspnea, productive cough, non-productive cough, wheezing, stridor, pain on inspiration, change in phlegm color, hemoptysis or chest congestion GI: Denies: abdominal pain, nausea, vomiting, hematemesis, coffee ground emesis, dysphagia, heartburn, diarrhea, constipation, GI cramping, change in stool character, hematochezia or melena : Denies: flank pain, dysuria, urinary frequency, urinary urgency, urinary hesitancy or hematuria Musc: Denies: neck pain, back pain, extremity pain, joint swelling, joint warmth or deformity Neuro: Denies: headache(s), numbness in extremities, weakness in extremities, sensory changes, difficulty walking, frequent falls, dizziness, vertigo, behavioral changes, Slurred speech present or seizure-like activity Psych: Denies: anxiety, depression, suicidal ideation or homicidal ideation Endo: Denies: polyuria, polydipsia, tired all the time, cold intolerance or hot flashes Angus/Lymph: Denies: easy bruising or easy bleeding Medications/Allergies Home Medications Medication Instructions Recorded Confirmed Last Taken Type fenofibrate nanocrystallized 145 See Rx Instructions .ROUTE 05/29/21 06/17/21 Unknown Rx mg tablet .COMPLEX #90 tablet pantoprazole 40 mg tablet,delayed See Rx Instructions .ROUTE 06/02/21 06/17/21 Unknown Rx release .COMPLEX #90 tab loratadine 10 mg tablet 10 mg PO DAILY #90 tab 07/17/21 Unknown Rx gabapentin 400 mg capsule See Rx Instructions .ROUTE 08/15/21 Unknown Rx .COMPLEX #90 cap lisinopril 5 mg tablet See Rx Instructions .ROUTE 08/21/21 Unknown Rx .COMPLEX #60 tab metoprolol tartrate 50 mg tablet 25 mg PO Q12H #60 tab 08/25/21 Unknown Rx Allergies Allergy/AdvReac Type Severity Reaction Status Date / Time atorvastatin [From Lipitor] Allergy abdominal Verified 08/25/21 17:14 pain hydrocodone Allergy abdominal Verified 08/25/21 17:14 pain PFSH Acute PFSH: Medical History AAA (abdominal aortic aneurysm) Gastritis and duodenitis GERD (gastroesophageal reflux disease) Neuropathy Peripheral neuropathy Surgical History History of back surgery Hx of appendectomy Hx of cholecystectomy Hx of knee surgery Hx of neck surgery Family History Other CAD (coronary artery disease) Cancer Diabetes Hyperlipidemia Hypertension Lung disease Stroke Denies family history of Clotting disorder Dementia Chronic kidney disease (CKD) Anesthesia complication Bleeding disorder Family history of premature coronary artery disease Social History Smoking and tobacco status: never smoked Second hand smoke exposure: Yes Alcohol intake: former Vitals/I&O/Wt Last Vital Signs Temp 97.8 F 08/26/21 06:28 Pulse 95 08/26/21 06:04 Resp 17 08/26/21 06:04 BP 122/92 08/26/21 06:04 Pulse Ox 95 08/26/21 06:04 Weight last 48 hrs Weight 83.461 kg Physical Exam Narrative: General: No acute distress, AO x3 HEENT: PERRLA, pupils bilaterally equal and reactive, pallors not present Chest: Normal vesicular breath sounds, no added sounds, equal good air entry bilaterally CVS: S1-S2 regular, no murmurs, no tachycardia, no gallops, no rubs Abdomen: Soft, nontender, no organomegaly, bowel sounds present Neuro: No focal deficits, no facial deformity, AO x3, power 5/5 in all limbs Extremities: no edema, clubbing or cyanosis Data Other Labs: Laboratory Results TSH 1.28 uIU/mL (0.27-4.20) 08/25/21 20:36 A&P Assessment and plan (1) Atrial fibrillation: Rapid A fib with RVR with HR 120-150 new in onset Received IVP metorpolol with improvement in HR Started on metoprolol 25mg po BID , currently HR 100s Trop series negative Patient hesitant to start anticoagulation with new onset A fib Patient has known AAA 4.5cm, which has recently been expanding. 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
[2021-08-26] MEDS: metoprolol tartrate 25 mg Tablet PO ×2 (08:40→20:37)
[2021-08-26] MEDS: lisinopril 5 mg Tablet PO ×2 (08:40→20:37)
[2021-08-26] MEDS: gabapentin 400 mg Capsule PO (08:40)
[2021-08-26] MEDS: pantoprazole DR 40 mg Tablet PO (08:40)
[2021-08-26] MEDS: fenofibrate 145 mg Tablet PO (08:40)
[2021-08-26] MEDS: sodium chloride 0.9% 1,000 ML 75 ML IV (08:41)
[2021-08-26] MEDS: iohexol 300 mg/mL 100 mL Btl IV (09:24)
[2021-08-26 10:00] LABS: Thyroid Stimulating Hormone 1.28 uIU/mL (0.27-4.20)
--- NOTE | 2021-08-26 10:46 | ECG_ITS ---
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 Measurements Intervals [place] Rate: 98 P: [place]: QRS: -73 QRSD: 89 T: 47 QT: 325 QTc: 416 Interpretive Statements ATRIAL FIBRILLATION POSSIBLE RIGHT VENTRICULAR CONDUCTION DELAY [RSR (QR) IN V1/V2] LEFT ANTERIOR FASCICULAR BLOCK [QRS AXIS <= -45, QR IN I, RS IN II] Compared to ECG 08/25/2021 20:21:10 Incomplete right bundle-branch block no longer present Electronically Signed On 08-28-2021 18:17:36 CDT by Clayton Bowles M.D. [id number] f
--- NOTE | 2021-08-26 17:03 | PM.MISC ---
Miscellaneous Note Note: Heart rate better controlled this afternoon. CTA of the chest shows unchanged aneurysm as noted below. Echocardiogram has been done but read is pending. Remains in atrial fibrillation Radiologist Impressions: Last 24 hours Chest/Abdomen/Pelvis CT 08/26/21 07:53 IMPRESSION: 1. No CT evidence of pneumonia. 2. Unchanged moderate coronary arterial atherosclerotic vascular calcifications. 3. No thoracic aortic dissection or aneurysm. IMPRESSION: 1. Unchanged moderate to severe atherosclerotic vascular calcifications of the abdominal aorta. Unchanged fusiform infrarenal abdominal aortic aneurysm with maximal axial dimension of 4.1 x 4.5 cm - given differences in measurement technique. The craniocaudal dimension is 6.5 cm. Follow-up imaging in 6-12 months is recommended. 2. Unchanged diffuse colonic diverticulosis, severe in the sigmoid colon region. No CT evidence of diverticulitis. 3. Unchanged moderate to severely enlarged prostate.
[2021-08-27] VITALS (15 sets, daily range): BP systolic 101–137; BP diastolic 76–96; PULSE 71–112; RESP 11–24; TEMP 36.3–36.9; O2SAT 93–96
--- NOTE | 2021-08-27 02:27 | PC.NURSE ---
Transfer Patient transferred to CSU bed 276-2 via bed. All patient belongings with patient at time of transfer. Receiving nurse at bedside; all vitals stable.
[2021-08-27] MEDS: sodium chloride 0.9% 1,000 ML 75 ML IV ×2 (02:33→19:51)
[2021-08-27 05:58] LABS: Basophils # 0.1 10^3/uL (0.0-0.1); Basophils % 0.8 %; Eosinophils # 0.2 10^3/uL (0.0-0.8); Eosinophils % 1.6 %; Hematocrit 45.8 % (42.0-52.0); Hemoglobin 15.6 g/dL (11.7-16.6); Lymphocytes # 1.7 10^3/uL (0.8-4.8); Lymphocytes % 18.6 %; Mean Corpuscular HGB Conc 34.1 g/dL (30.0-36.0); Mean Corpuscular Hemoglobin 29.3 pg (28.0-34.0); Mean Corpuscular Volume 85.9 fl (80-94); Mean Platelet Volume 12.3 fL (7.4-10.4); Monocytes # 0.6 10^3/uL (0.2-0.9); Monocytes % 6.8 %; Neutrophils # 6.68 10^3/uL (1.8-7.7); Nucleated Red Blood Cells % 0 %; Platelet Count 176 10^3/cmm (130-400); Red Blood Count 5.33 10^6/uL (4.1-5.3); Red Cell Distribution Width 13.2 % (12.1-15.1); White Blood Count 9.3 10^3/uL (4.0-10.0)
[2021-08-27 06:38] LABS: Anion Gap 13.3 (5-19); Blood Urea Nitrogen 14 mg/dL (8-23); Calcium 9.4 mg/dL (8.5-10.5); Carbon Dioxide 25 mmol/L (22-29); Chloride 105 mmol/L (98-107); Glucose 95 mg/dL (65-115); Magnesium 2.1 mg/dL (1.7-2.3); Osmolality Calculated 288 mOsm/kg (285-295); Potassium 4.3 mmol/L (3.5-5.1); Sodium 139 mmol/L (136-145)
[2021-08-27] MEDS: pantoprazole DR 40 mg Tablet PO (08:21)
[2021-08-27] MEDS: gabapentin 400 mg Capsule PO (08:21)
[2021-08-27] MEDS: fenofibrate 145 mg Tablet PO (08:21)
[2021-08-27] MEDS: metoprolol tartrate 25 mg Tablet PO (08:22)
--- NOTE | 2021-08-27 09:32 | PM.PN ---
Subjective Subjective: Remains in atrial fibrillation with rapid ventricular response. Symptomatic with dizziness on exertion Blood pressures are stable. On CTA, AAA unchanged. This is new onset atrial fibrillation. Vitals/I&O/Wt Last Vital Signs Temp 98 F 08/27/21 07:36 Pulse 110 H 08/27/21 07:36 Resp 16 08/27/21 07:36 BP 132/96 08/27/21 07:36 Pulse Ox 96 08/27/21 07:36 08/26/21 08/27/21 08/27/21 22:59 06:59 14:59 Intake Total 1300 / 1900 1160 / 3060 120 / 120 Output Total 500 / 500 1250 / 1750 420 / 420 Balance 800 / 1400 -90 / 1310 -300 / -300 Weight last 48 hrs Weight 83.461 kg Data : 08/27/21 05:50 08/27/21 05:50 A&P Assessment and plan (1) Atrial fibrillation: New onset atrial fibrillation with further details regarding type presently unavailable Patient is very symptomatic with dizziness I have discussed the case with Dr. Bowles who will see him in consultation; question was whether or not this would be a situation we might consider chemical cardioversion given defined onset, degree of symptoms and known AAA Continuing metoprolol, increasing to 50 mg twice a day We will add diltiazem 30 mg p.o. every 6 hours Monitor response On Lovenox at DVT prophylaxis dosing Have discussed anticoagulation with patient but he is very hesitant to consider; he would be willing for short-term for cardioversion but is not interested in long-term anticoagulation at this time even knowing potential benefits versus risks. Status: Acute (2) AAA (abdominal aortic aneurysm): Unchanged measuring at 4.8 cm, follows with Dr. Richards outpatient Status: Acute Qualifiers: Presence of rupture: without rupture Qualified Code(s): I71.4 - Abdominal aortic aneurysm, without rupture (3) HTN (hypertension): We will have to monitor blood pressure response to changes in medications Will change lisinopril to 5 mg daily with adjustments in rate controlling agents Status: Chronic Qualifiers: Hypertension type: primary hypertension Qualified Code(s): I10 - Essential (primary) hypertension (4) GERD (gastroesophageal reflux disease): Chronically on PPI Status: Chronic Qualifiers: Esophagitis presence: without esophagitis Qualified Code(s): K21.9 - Gastro-esophageal reflux disease without esophagitis Plan Changed to inpatient status as stable now exceed 2 midnights due to persistent symptomatic atrial fibrillation with rapid ventricular response Increase beta-blockade Add calcium channel bisi Cardiology consultation for consideration of cardioversion Decrease dose of lisinopril Continue home fenofibrate Continue home gabapentin Add Flonase for sinus symptoms which are chronic Lovenox for DVT prophylaxis Supportive care otherwise Patient's significant other is having an arteriogram done here on Saturday in the morning by Dr. Bowles and says he will leave to be with her if we do not let him go be with her. 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 Otherwise Dr. Bowles will keep him updated of what is going on via a different means. I personally spoke with Dr. Contreras about this and we identified her on his schedule to ensure he was aware. Disposition depending on clinical course Full code Attestations Medical Necessity Statement*: Stable now exceed 2 midnights I have changed him to inpatient. He has new onset atrial fibrillation with intermittent RVR for which he is very symptomatic with dizziness. Hemodynamically stable with that. Requiring adjustments to medications for rate control and monitoring of blood pressures as a result. This is especially true given known history of AAA at 4.8 cm. Coding Level of Care Code Acute Insecticide Maker for [facility] Diagnoses Atrial fibrillation I48.91 AAA (abdominal aortic aneurysm) I71.4 Presence of rupture: without rupture HTN (hypertension) I10 Hypertension type: primary hypertension GERD (gastroesophageal reflux disease) K21.9 Esophagitis presence: without esophagitis
[2021-08-27] MEDS: dilTIAZem 30 mg Tablet PO ×3 (09:46→19:50)
--- NOTE | 2021-08-27 10:00 | ECG_ITS ---
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 Measurements Intervals [place] Rate: 84 P: [place]: QRS: -71 QRSD: 94 T: 3 QT: 356 QTc: 422 Interpretive Statements ATRIAL FIBRILLATION INCOMPLETE RIGHT BUNDLE BRANCH BLOCK [90+ ms QRS DURATION, TERMINAL R IN V1/V2, 40+ ms S IN I/aVL/V4/V5/V6] LEFT ANTERIOR FASCICULAR BLOCK [QRS AXIS <= -45, QR IN I, RS IN II] POSSIBLE ANTERIOR MYOCARDIAL INFARCTION , PROBABLY OLD [30 ms Q WAVE IN V3/V4, OR R < 0.2 mV IN V4] Compared to ECG 08/26/2021 04:43:22 Incomplete right bundle-branch block now present Myocardial infarct finding now present Electronically Signed On 08-28-2021 18:14:52 CDT by Clayton Bowles M.D. [id number]
[2021-08-27] MEDS: enoxaparin 40 mg/0.4 mL Syringe SUBCUT (10:31)
[2021-08-27] MEDS: fluticasone nasal spray 16gm Btl 1 SPRAY NASAL (18:12)
[2021-08-27] MEDS: metoprolol tartrate 25 mg Tablet 50 MG PO (19:50)
[2021-08-28] VITALS (11 sets, daily range): BP systolic 107–136; BP diastolic 57–86; PULSE 53–94; RESP 12–17; TEMP 36.2–36.6; O2SAT 93–97
[2021-08-28] MEDS: dilTIAZem 30 mg Tablet PO ×2 (03:09→09:23)
--- NOTE | 2021-08-28 06:39 | P.CONIM_ITS ---
Providers/Reason For Consult Consulting Physician/Specialty*: Clayton Bowles MD/Cardiology Reason for Consult*: Atrial fibrillation with RVR Requesting Physician: Dr Gusman Attending Physician: Malathi Gusman MD Primary Care Provider: YOAV Johnston History of Present Illness History of Present Illness Cong Nath is a 75 year old male with past medical history of abdominal aortic aneurysm and hypertension has presented to the hospital with palpitations. Patient has been having substernal racing heart sensation. Occasional dyspnea. EKG demonstrated A. fib with RVR and heart rate in 150s. With metoprolol rate improved. Cardiology was consulted for further recommendations. Echocardiogram shows normal LV systolic function Review of Systems Const: Denies: fever(s) or chills Card: Reports: palpitations and irregular heart rhythm; Denies: chest pain Resp: Reports: dyspnea (mild) GI: Reports: nausea; Denies: vomiting or diarrhea Musc: Denies: extremity pain Medications/Allergies Home Medications Medication Instructions Recorded Confirmed Last Taken Type fenofibrate nanocrystallized 145 See Rx Instructions .ROUTE 05/29/21 08/26/21 Unknown Rx mg tablet .COMPLEX #90 tablet pantoprazole 40 mg tablet,delayed See Rx Instructions .ROUTE 06/02/21 08/26/21 Unknown Rx release .COMPLEX #90 tab loratadine 10 mg tablet 10 mg PO DAILY #90 tab 07/17/21 08/26/21 Unknown Rx gabapentin 400 mg capsule See Rx Instructions .ROUTE 08/15/21 08/26/21 Unknown Rx .COMPLEX #90 cap lisinopril 5 mg tablet See Rx Instructions .ROUTE 08/21/21 08/26/21 Unknown Rx .COMPLEX #60 tab metoprolol tartrate 50 mg tablet 25 mg PO Q12H #60 tab 08/25/21 08/26/21 Unknown Rx Allergies Allergy/AdvReac Type Severity Reaction Status Date / Time atorvastatin [From Lipitor] Allergy abdominal Verified 08/25/21 17:14 pain hydrocodone Allergy abdominal Verified 08/25/21 17:14 pain Current Medications Generic Name Dose Route Start Last Admin Trade Name Freq PRN Reason Stop Dose Admin Diltiazem HCl 30 mg 08/27/21 09:45 08/28/21 03:09 Diltiazem 30 Mg Tablet PO 30 mg Q6H JARRELL Administration Enoxaparin Sodium 40 mg 08/27/21 10:15 08/27/21 10:31 Enoxaparin 40 Mg/0.4 Ml Syringe SUBCUT 40 mg Q24H JARRELL Administration Fenofibrate 145 mg 08/26/21 09:00 08/27/21 08:21 Fenofibrate 145 Mg Tablet PO 145 mg DAILY JARRELL Administration Fluticasone Propionate 1 spray 08/27/21 18:00 08/27/21 18:12 Fluticasone Nasal [place] 16gm Btl NASAL 1 spray BID JARRELL Administration Gabapentin 400 mg 08/26/21 09:00 08/27/21 08:21 Gabapentin 400 Mg Capsule PO 400 mg DAILY JARRELL Administration Sodium Chloride 1,000 mls @ 75 mls/hr 08/26/21 06:28 08/27/21 19:51 Sodium Chloride 0.9% IV 75 mls/hr .[id number] JARRELL Administration Metoprolol Tartrate 50 mg 08/27/21 21:00 08/27/21 19:50 Metoprolol Tartrate 25 Mg Tablet PO 50 mg BID@0900,2100 JARRELL Administration Pantoprazole Sodium 40 mg 08/26/21 09:00 08/27/21 08:[address] 40 Mg Tablet PO 40 mg DAILY JARRELL Administration PFSH Acute PFSH: Medical History AAA (abdominal aortic aneurysm) followed by Dr Ferrell, 4.8 cm 08/27/21 Chronic sinusitis Cyst of right kidney Gastritis and duodenitis GERD (gastroesophageal reflux disease) HTN (hypertension) Hyperlipidemia Peripheral neuropathy Surgical History History of back surgery History of colonoscopy History of esophagogastroduodenoscopy (EGD) 2020 History of sinus surgery Hx of appendectomy Hx of cholecystectomy Hx of knee surgery Hx of neck surgery Family History Other CAD (coronary artery disease) Cancer Diabetes Hyperlipidemia Hypertension Lung disease Stroke Denies family history of Clotting disorder Dementia Chronic kidney disease (CKD) Anesthesia complication Bleeding disorder Family history of premature coronary artery disease Social History Smoking and tobacco status: never smoked Second hand smoke exposure: Yes Alcohol intake: former Vitals/I&O/Wt Last Vital Signs Temp 97.5 F L 08/28/21 04:00 Pulse 80 08/28/21 04:46 Resp 17 08/28/21 04:00 BP 131/86 08/28/21 04:00 Pulse Ox 93 08/28/21 04:00 08/27/21 08/27/21 08/28/21 14:59 22:59 06:59 Intake Total 360 / 360 1000 / 1360 Output Total 420 / 420 1200 / 1620 1350 / 2970 Balance -60 / -60 -200 / -260 -1350 / -1610 Physical Exam Narrative: GENERAL: Awake, alert, oriented, in no acute distress. [] HEENT: Normocephalic, atraumatic, PERRLA. [] CHEST: Clear to auscultation bilaterally. [] CVS: Irregularly irregular. S1 and S2. ABDOMEN: Soft, nontender. Nondistended. Bowel sounds heard. [] EXTREMITIES: No edema. [] Data : 08/27/21 05:50 08/27/21 05:50 A&P Assessment and plan (1) HTN (hypertension): Status: Chronic Qualifiers: Hypertension type: primary hypertension Qualified Code(s): I10 - Essential (primary) hypertension (2) Atrial fibrillation: Status: Acute (3) Hyperlipidemia: Patient has presented with new onset atrial fibrillation. His [id number] score is 3. We will recommend starting anticoagulation. Can initiate therapeutic Lovenox now. At time of discharge can be switched to Eliquis. As this is new onset, will attempt MARICHUY cardioversion On metoprolol 50 mg twice daily. Uptitrated last night. Continue Cardizem. Echocardiogram performed. Shows normal LV systolic function. Thank you for involving us with care of this patient. We will continue to follow. Please call with questions. Status: Chronic Consult Attestations Medical Necessity Statement: Care expected to cross 2 midnights. 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
--- NOTE | 2021-08-28 06:40 | USCV_ITS ---
Cong Nath Age: 75 Gender: M : 1945 Exam Date: 08/28/2021 11:49 Ordering Phys: Clayton Bowles M.D ([email or web address]) Technologist: Brayden Simmons Exam Location[place] [facility] [place] Indication: card conversion BP: / HR: Rhythm: Sinus Technical Quality: Good MEASUREMENTS (Male / Female) Normal Values Medications Complications None Proc. Components After anesthesia team administered sedation, we proceeded with intubation of transesophageal echocardiogram probe. FINDINGS Left Ventricle LV systolic function is normal Right Ventricle Normal function Right Atrium Grossly normal Left Atrium Grossly enlarged LA Appendage No left atrial appendage thrombus seen IA Septum Normal Mitral Valve Normal in structure. Mild mitral regurgitation Aortic Valve Mildly thickened. Mild aortic regurgitation Tricuspid Valve Normal Pulmonic Valve Grossly normal Pericardium Normal Aorta Significant plaque is seen CONCLUSIONS LV systolic function is normal. No left atrial appendage thrombus is seen. Mild mitral regurgitation Mild aortic regurgitation. Significant plaque is seen in the ascending aorta Clayton Bowles MD (Electronically Signed) Final Date: 05 September 2021 09:46 S
[2021-08-28] MEDS: metoprolol tartrate 25 mg Tablet 50 MG PO ×2 (09:23→20:16)
[2021-08-28] MEDS: gabapentin 400 mg Capsule PO (09:23)
[2021-08-28] MEDS: fenofibrate 145 mg Tablet PO (09:23)
[2021-08-28] MEDS: pantoprazole DR 40 mg Tablet PO (09:24)
[2021-08-28] MEDS: enoxaparin 40 mg/0.4 mL Syringe SUBCUT (09:25)
[2021-08-28] MEDS: sodium chloride 0.9% 1,000 ML 75 ML IV (09:25)
[2021-08-28] MEDS: enoxaparin 80 mg/0.8 mL Syringe SUBCUT (11:38)
--- NOTE | 2021-08-28 11:41 | W.PM.OPSUD ---
Surgery/Procedure H&P Update DATE OF PROCEDURE: August 28, 2021 DATE H&P PERFORMED: 08/28/21 H&P UPDATE INFORMATION: I have reviewed H&P completed within last 30 days, I have examined patient prior to procedure and No changes to prior documentation PREOP DIAGNOSIS: Atrial fibrillation with RVR PRIMARY INDICATION FOR PROCEDURE: Atrial fibrillation with RVR PLANNED PROCEDURE: MARICHUY/Cardioversion Anesthesia team administering sedation
--- NOTE | 2021-08-28 11:44 | PC.NURSE ---
to icu 6 for braden w/cardioversion
--- NOTE | 2021-08-28 12:05 | PC.NURSE ---
Patient brought to ICU 6 fir MARICHUY and cardioversion. Anesthesia present, ultrasound, and Dr barrios present. MARICHUY was performed and patient was cardioverted and converted into normal sinus. Procedure completed and nurse is continue to monitor post anesthesia. Patient was sedated using propofol.
--- NOTE | 2021-08-28 12:10 | PM.PROC ---
Procedure Note: Date of procedure: 08/28/21 Pre-procedure diagnosis: Atrial fibrillation with RVR Post-procedure diagnosis: other (Normal sinus rhythm) Procedure: MARICHUY cardioversion: After anesthesia team sedated the patient, MARICHUY probe was introduced to rule out left atrial appendage thrombus. No thrombus was seen. Patient had received therapeutic dose of Lovenox prior to the procedure. Successful cardioversion was performed with 200 J. Patient converted to normal sinus rhythm Complications: None Coding Level of Care Code Acute Manager Travel for [facility]
--- NOTE | 2021-08-28 12:10 | PC.NURSE ---
10 minutes after propofol was discontinued, patient regained consciousness (1212). Is alert to person, place, time, and situation.
--- NOTE | 2021-08-28 12:32 | PC.NURSE ---
Patient conitnues to be alert and oriented to person, place, time, and situation. saturating 97% on room air. Normal sinus/Sinus melinda
--- NOTE | 2021-08-28 12:49 | ANES.PREANE2 ---
Pre-Anesthetic Assessment Height/Weight: Height 1.85 m Weight 83.461 kg Temp Pulse Resp BP Pulse Ox 97.8 F 89 12 108/74 96 08/28/21 08:00 08/28/21 08:00 08/28/21 08:00 08/28/21 08:00 08/28/21 08:00 Preop Diagnosis: Atrial fibrillation with RVR MARICHUY/cardioversion Familial anesthetic complications: none Was Beta Camelia taken within 24 hours: Yes Was Clonidine taken within 24 hours: N/A Social Tobacco and No alcohol Exam alert and oriented x 3 irregular Airway Submandibular: within normal limits Cervical ROM: within normal limits Mallampati: Class II Dentition: chipped Comments: Comments: poor dentition, missing most Pulmonary Chronic Obstructive Pulmonary Disease CV/HEM Atrial Fibrillation, Coronary Artery Disease, Hypertension and Peripheral Vascular Disease (AAA) Metabolic Hyperlipidemia Neuropsych Neuropathy Anesthetic Plan ASA status: 3 Anesthesia: General Medications/Allergies Home Medications Medication Instructions Recorded Confirmed Last Taken Type fenofibrate nanocrystallized 145 See Rx Instructions .ROUTE 05/29/21 08/26/21 Unknown Rx mg tablet .COMPLEX #90 tablet pantoprazole 40 mg tablet,delayed See Rx Instructions .ROUTE 06/02/21 08/26/21 Unknown Rx release .COMPLEX #90 tab loratadine 10 mg tablet 10 mg PO DAILY #90 tab 07/17/21 08/26/21 Unknown Rx gabapentin 400 mg capsule See Rx Instructions .ROUTE 08/15/21 08/26/21 Unknown Rx .COMPLEX #90 cap lisinopril 5 mg tablet See Rx Instructions .ROUTE 08/21/21 08/26/21 Unknown Rx .COMPLEX #60 tab metoprolol tartrate 50 mg tablet 25 mg PO Q12H #60 tab 08/25/21 08/26/21 Unknown Rx Allergies Allergy/AdvReac Type Severity Reaction Status Date / Time atorvastatin [From Lipitor] Allergy abdominal Verified 08/25/21 17:14 pain hydrocodone Allergy abdominal Verified 08/25/21 17:14 pain Current Medications Generic Name Dose Route Start Last Admin Trade Name Freq PRN Reason Stop Dose Admin Diltiazem HCl 30 mg 08/27/21 09:45 08/28/21 09:23 Diltiazem 30 Mg Tablet PO 30 mg Q6H JARRELL Administration Enoxaparin Sodium 40 mg 08/27/21 10:15 08/28/21 09:25 Enoxaparin 40 Mg/0.4 Ml Syringe SUBCUT 40 mg Q24H JARRELL Administration Fenofibrate 145 mg 08/26/21 09:00 08/28/21 09:23 Fenofibrate 145 Mg Tablet PO 145 mg DAILY JARRELL Administration Fluticasone Propionate 1 spray 08/27/21 18:00 08/28/21 09:27 Fluticasone Nasal [place] 16gm Btl NASAL Not Given BID JARRELL Gabapentin 400 mg 08/26/21 09:00 08/28/21 09:23 Gabapentin 400 Mg Capsule PO 400 mg DAILY JARRELL Administration Sodium Chloride 1,000 mls @ 75 mls/hr 08/26/21 06:28 08/28/21 09:25 Sodium Chloride 0.9% IV 75 mls/hr .[id number] JARRELL Administration Metoprolol Tartrate 50 mg 08/27/21 21:00 08/28/21 09:23 Metoprolol Tartrate 25 Mg Tablet PO 50 mg BID@0900,2100 JARRELL Administration Pantoprazole Sodium 40 mg 08/26/21 09:00 08/28/21 09:[address] 40 Mg Tablet PO 40 mg DAILY JARRELL Administration PFSH Anesthesia Medical History AAA (abdominal aortic aneurysm) followed by Dr Ferrell, 4.8 cm 08/27/21 Chronic sinusitis Cyst of right kidney Gastritis and duodenitis GERD (gastroesophageal reflux disease) HTN (hypertension) Hyperlipidemia Peripheral neuropathy Surgical History History of back surgery History of colonoscopy History of esophagogastroduodenoscopy (EGD) 2020 History of sinus surgery Hx of appendectomy Hx of cholecystectomy Hx of knee surgery Hx of neck surgery Family History Other CAD (coronary artery disease) Cancer Diabetes Hyperlipidemia Hypertension Lung disease Stroke Denies family history of Clotting disorder Dementia Chronic kidney disease (CKD) Anesthesia complication Bleeding disorder Family history of premature coronary artery disease Social History Smoking and tobacco status: never smoked Second hand smoke exposure: Yes Alcohol intake: former Data Anesthesia : 08/27/21 05:50 08/27/21 05:50 Short CBC 08/27/21 Range/Units 05:50 WBC 9.3 (4.0-10.0) 10^3/uL Hgb 15.6 (11.7-16.6) g/dL Hct 45.8 (42.0-52.0) % MCV 85.9 (80-94) fl Plt Count 176 (130-400) 10^3/cmm Neut % (Auto) 72.0 % Neut # (Auto) 6.68 (1.8-7.7) 10^3/uL BMP 08/27/21 05:50 Sodium 139 Potassium 4.3 Chloride 105 Carbon Dioxide 25 BUN 14 Creatinine 1.2 Glucose 95 Calcium 9.4 Cardiac Studies: Echocardiogram 08/26/21 Sestamibi Stress Test (Cardiology) 07/08/20
--- NOTE | 2021-08-28 12:51 | ANE.PACU2 ---
Inpatient post-anesthesia follow up: Airway intact: Yes Vital signs: Temperature 97.8 F Pulse Rate 89 Respiratory Rate 12 Blood Pressure 108/74 Pulse Oximetry 96 Oxygen Delivery Me thod [ Room Air Current Rate & Del deyanira] Oxygen Delivery Me thod Room Air Oxygen Flow Rate Fraction of Inspir ed Oxygen Hydration adequate: Yes Nausea and vomiting: No Pain level: 1 Mental status: Baseline
--- NOTE | 2021-08-28 12:54 | PC.NURSE ---
Received from ICU Pt is post MARICHUY w/cardioversion. He is SR/SB HR in upper 50s, alert, oriented. Denies any pain. Attached back to teletypesetter monitor. Family at bedside.
--- NOTE | 2021-08-28 15:22 | P.PN_ITS ---
Subjective Subjective: Seen this morning. No acute events overnight. Going for cardioversion today. Family at bedside updated. Vitals/I&O/Wt Last Vital Signs Temp 97.8 F 08/28/21 08:00 Pulse 60 08/28/21 14:00 Resp 12 08/28/21 08:00 BP 136/57 08/28/21 13:31 Pulse Ox 96 08/28/21 08:00 08/28/21 08/28/21 08/28/21 06:59 14:59 22:59 Intake Total 1240 / 1240 Output Total 1350 / 2970 775 / 775 Balance -1350 / -1610 465 / 465 Physical Exam Narrative: General: Alert oriented x3, patient seen sitting up in bed HEENT: Normocephalic, atraumatic, EOMI, breathing comfortably Cardio: Irregularly irregular, normal S1-S2, no murmurs Respiratory: Good bilateral air entry, no wheezes no rhonchi appreciated GI: Abdomen soft, nontender, nondistended, bowel sounds + Extremities:No LE edema, no cyanosis Data : 08/27/21 05:50 08/27/21 05:50 A&P Assessment and plan (1) HTN (hypertension): Status: Chronic Qualifiers: Hypertension type: primary hypertension Qualified Code(s): I10 - Essential (primary) hypertension (2) Peripheral neuropathy: Status: Chronic Qualifiers: 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 Qualified Code(s): 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 (3) Neuropathy: Status: Chronic (4) GERD (gastroesophageal reflux disease): Status: Chronic Qualifiers: Esophagitis presence: without esophagitis Qualified Code(s): K21.9 - Gastro-esophageal reflux disease without esophagitis (5) AAA (abdominal aortic aneurysm): Status: Acute Qualifiers: Presence of rupture: without rupture Qualified Code(s): I71.4 - Abdominal aortic aneurysm, without rupture (6) Hyperlipidemia: Status: Chronic (7) Atrial fibrillation: Status: Acute Plan #Atrial fibrillation with RVR #HTN #Hx of AAA - Stable #GERD - MARICHUY cardioversion today - Metoprolol 50 BID - Cardizem 30 q6H - Lovenox for DVT PPX. - Pt not interested in eliquis at this time. - Cardiology following - COntinue rest of home meds: fenofibrate 145 mg, gabapentin 400 mg, - COntinue lisinopril - Further management as per cardiology recommendations Full Code DVT PPX: lovenox 40 Attestations Medical Necessity Statement*: MARICHUY / cardioversion today. 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
[2021-08-28] MEDS: fluticasone nasal spray 16gm Btl 1 SPRAY NASAL (18:12)
[2021-08-28] MEDS: apixaban 5 mg Tablet PO (20:16)
[2021-08-29] VITALS: BP 104/76; PULSE 69; RESP 17; TEMP 36.6; O2SAT 91
[2021-08-29 04:00] VITALS: BP 115/72; PULSE 67; RESP 17; TEMP 36.3; O2SAT 93
[2021-08-29 04:25] LABS: Anion Gap 14.8 (5-19); Blood Urea Nitrogen 20 mg/dL (8-23); Calcium 9.1 mg/dL (8.5-10.5); Carbon Dioxide 25 mmol/L (22-29); Chloride 104 mmol/L (98-107); Glucose 98 mg/dL (65-115); Osmolality Calculated 291 mOsm/kg (285-295); Potassium 4.8 mmol/L (3.5-5.1); Sodium 139 mmol/L (136-145)
[2021-08-29 05:37] VITALS: PULSE 57
[2021-08-29 08:00] VITALS: BP 122/79; PULSE 69; RESP 17; O2SAT 97
[2021-08-29] MEDS: metoprolol tartrate 25 mg Tablet 50 MG PO (09:48)
[2021-08-29] MEDS: apixaban 5 mg Tablet PO (09:48)
[2021-08-29] MEDS: pantoprazole DR 40 mg Tablet PO (09:49)
[2021-08-29] MEDS: gabapentin 400 mg Capsule PO (09:49)
[2021-08-29] MEDS: fluticasone nasal spray 16gm Btl 1 SPRAY NASAL (09:49)
[2021-08-29] MEDS: fenofibrate 145 mg Tablet PO (09:49)
--- NOTE | 2021-08-29 09:57 | P.PN_ITS ---
Subjective Subjective: Patient is doing well. He is staying in normal sinus rhythm. Vitals/I&O/Wt Last Vital Signs Temp 97.3 F L 08/29/21 04:00 Pulse 69 08/29/21 08:00 Resp 17 08/29/21 08:00 BP 122/79 08/29/21 08:00 Pulse Ox 97 08/29/21 08:00 08/28/21 08/29/21 08/29/21 22:59 06:59 14:59 Intake Total 997.5 / 2237.5 480 / 2717.5 Output Total 250 / 1025 500 / 1525 Balance 747.5 / 1212.5 -20 / 1192.5 Physical Exam Narrative: GENERAL: Awake, alert, oriented, in no acute distress. [] HEENT: Normocephalic, atraumatic, PERRLA. [] CHEST: Clear to auscultation bilaterally. [] CVS: Regular, S1 and S2 ABDOMEN: Soft, nontender. Nondistended. Bowel sounds heard. [] EXTREMITIES: No edema. [] Data : 08/27/21 05:50 08/29/21 03:44 A&P Assessment and plan (1) HTN (hypertension): Status: Chronic Qualifiers: Hypertension type: primary hypertension Qualified Code(s): I10 - Essential (primary) hypertension (2) Atrial fibrillation: Status: Resolved (3) Hyperlipidemia: Patient underwent successful MARICHUY cardioversion yesterday. He is staying in normal sinus rhythm. To continue anticoagulation and metoprolol. He is stable to be discharged from cardiology standpoint. Thank you for involving us with care of this patient. Please call with questions. Status: Chronic Attestations Medical Necessity Statement*: Care expected to cross 2 midnights. Coding Level of Care Code Acute Environmental Remediation Consultant for g Fwd Diagnoses HTN (hypertension) I10 Hypertension type: primary hypertension Atrial fibrillation I48.91 Hyperlipidemia E78.5
--- NOTE | 2021-08-29 10:34 | P.DS_ITS ---
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 (3) Neuropathy: Status: Chronic (4) GERD (gastroesophageal reflux disease): Status: Chronic Qualifiers: Esophagitis presence: without esophagitis Qualified Code(s): K21.9 - Gastro-esophageal reflux disease without esophagitis (5) AAA (abdominal aortic aneurysm): Status: Acute Qualifiers: Presence of rupture: without rupture Qualified Code(s): I71.4 - Abdominal aortic aneurysm, without rupture Permanent problem details: followed by Dr Richards, 4.8 cm 08/27/21 (6) Hyperlipidemia: Status: Chronic (7) Atrial fibrillation: Status: Resolved Reason for Visit Reason for Visit: heart is racing Brief History: Cong Nath is a 75 year old male who presents with sudden onset palpitations that lasted yesterday afternoon. Patient was at rest when symptoms started, described as palpitations, central chest pressure, mild back pain. Denies dyspnea, nausea, vomiting. Denies excessive caffeine consumption though has been drinking multiple bottles of gatorade while working outdoors. EKG showed A fib with RVR with HR 150s which improved with metoprolol pushes. He preferred to go home, but then returned when he had palpitations again at ~4am. HR then noted to be a fib RVR in 120s. Denies past h/o A fib. no past h/o CAD. Hospital Course Hospital Course Presented with dizziness. Patient found to be in A. fib with RVR. Initially beta-bisi worked but heart rate again went up. Cardiology was consulted. Patient did not want to be on long-term anticoagulation. Patient went for cardioversion and remained in sinus rhythm. He was discharged home on Lopressor 50 twice daily. He does have an apparent aortic aneurysm that he follows with Dr. Richards for which was unchanged from prior studies at 4.8 cm. Patient was discharged home and asked to follow-up outpatient with cardiology. He was discharged home in stable condition. Physical Exam Narrative: General: Alert oriented x3, patient seen sitting up in bed HEENT: Normocephalic, atraumatic, EOMI, breathing comfortably Cardio: Irregularly irregular, normal S1-S2, no murmurs Respiratory: Good bilateral air entry, no wheezes no rhonchi appreciated GI: Abdomen soft, nontender, nondistended, bowel sounds + Extremities:No LE edema, no cyanosis Discharge Data Studies Completed and Pending Completed Studies During Hospitalization Category Date Time Status CT chest abd pel w con* Routine Cat Scan 08/26/21 07:53 Completed CV. echo complete* [id number] Routine Ultrasound 08/26/21 07:55 Completed Pending at discharge Category Date Time Status MARICHUY [CV. echo transesophageal 84510] Routine Ultrasound 08/28/21 06:40 Taken Radiology Impressions Chest/Abdomen/Pelvis CT 08/26/21 07:53 IMPRESSION: 1. No CT evidence of pneumonia. 2. Unchanged moderate coronary arterial atherosclerotic vascular calcifications. 3. No thoracic aortic dissection or aneurysm. IMPRESSION: 1. Unchanged moderate to severe atherosclerotic vascular calcifications of the abdominal aorta. Unchanged fusiform infrarenal abdominal aortic aneurysm with maximal axial dimension of 4.1 x 4.5 cm - given differences in measurement technique. The craniocaudal dimension is 6.5 cm. Follow-up imaging in 6-12 months is recommended. 2. Unchanged diffuse colonic diverticulosis, severe in the sigmoid colon region. No CT evidence of diverticulitis. 3. Unchanged moderate to severely enlarged prostate. Laboratory Results WBC 9.3 10^3/uL (4.0-10.0) 08/27/21 05:50 RBC 5.33 10^6/uL (4.1-5.3) H 08/27/21 05:50 Hgb 15.6 g/dL (11.7-16.6) 08/27/21 05:50 Hct 45.8 % (42.0-52.0) 08/27/21 05:50 MCV 85.9 fl (80-94) 08/27/21 05:50 MCH 29.3 pg (28.0-34.0) 08/27/21 05:50 MCHC 34.1 g/dL (30.0-36.0) 08/27/21 05:50 RDW 13.2 % (12.1-15.1) 08/27/21 05:50 Plt Count 176 10^3/cmm (130-400) 08/27/21 05:50 MPV 12.3 fL (7.4-10.4) H 08/27/21 05:50 Neut % (Auto) 72.0 % 08/27/21 05:50 Lymph % (Auto) 18.6 % 08/27/21 05:50 [place] % (Auto) 6.8 % 08/27/21 05:50 Eos % (Auto) 1.6 % 08/27/21 05:50 Baso % (Auto) 0.8 % 08/27/21 05:50 Neut # (Auto) 6.68 10^3/uL (1.8-7.7) 08/27/21 05:50 Lymph # (Auto) 1.7 10^3/uL (0.8-4.8) 08/27/21 05:50 [place] # (Auto) 0.6 10^3/uL (0.2-0.9) 08/27/21 05:50 Eos # (Auto) 0.2 10^3/uL (0.0-0.8) 08/27/21 05:50 Baso # (Auto) 0.1 10^3/uL (0.0-0.1) 08/27/21 05:50 Nucleated RBC % (auto) 0 % 08/27/21 05:50 Nucleated RBCs # 0.0 /100WBC 08/27/21 05:50 Sodium 139 mmol/L (136-145) 08/29/21 03:44 Potassium 4.8 mmol/L (3.5-5.1) 08/29/21 03:44 Chloride 104 mmol/L (98-107) 08/29/21 03:44 Carbon Dioxide 25 mmol/L (22-29) 08/29/21 03:44 Anion Gap 14.8 (5-19) 08/29/21 03:44 BUN 20 mg/dL (8-23) 08/29/21 03:44 Creatinine 1.4 mg/dL (0.7-1.2) H 08/29/21 03:44 GFR Calculation Not Reportable 08/29/21 03:44 Glucose 98 mg/dL (65-115) 08/29/21 03:44 Calculated Osmolality 291 mOsm/kg (285-295) 08/29/21 03:44 Calcium 9.1 mg/dL (8.5-10.5) 08/29/21 03:44 Magnesium 2.0 mg/dL (1.7-2.3) 08/29/21 03:44 TSH 1.28 uIU/mL (0.27-4.20) 08/25/21 20:36 Vitals Last Vital Signs Temp 97.3 F L 08/29/21 04:00 Pulse 69 08/29/21 08:00 Resp 17 08/29/21 08:00 BP 122/79 08/29/21 08:00 Pulse Ox 97 08/29/21 08:00 Discharge Plan Discharge Patient Disposition: Home Condition: Stable Prescriptions: New metoprolol tartrate 25 mg Tablet 50 mg PO BID@00,2099 30 Days Qty: 60 0RF Eliquis 5 mg Tablet 5 mg PO BID@00,2099 30 Days Qty: 60 0RF Continued fenofibrate nanocrystallized 145 mg tablet See Rx Instructions .ROUTE .COMPLEX Qty: 90 0RF Dose Instruction: TAKE 1 TABLET BY MOUTH ONCE DAILY FOR HYPERLIPIDEMIA. Rx Instructions: TAKE 1 TABLET BY MOUTH ONCE DAILY FOR HYPERLIPIDEMIA. pantoprazole 40 mg tablet,delayed release (DR/EC) See Rx Instructions .ROUTE .COMPLEX Qty: 90 0RF Dose Instruction: Take 1 tablet by mouth once daily Rx Instructions: Take 1 tablet by mouth twice daily loratadine 10 mg tablet 10 mg PO DAILY Qty: 90 0RF gabapentin 400 mg capsule See Rx Instructions .ROUTE .COMPLEX Qty: 90 0RF Dose Instruction: Take 1 capsule by mouth once daily Rx Instructions: Take 1 capsule by mouth once daily lisinopril 5 mg tablet See Rx Instructions .ROUTE .COMPLEX Qty: 60 2RF Dose Instruction: Take 1 tablet by mouth twice daily Rx Instructions: Take 1 tablet by mouth twice daily Discontinued metoprolol tartrate 50 mg tablet 25 mg PO Q12H Qty: 60 0RF Discharge Orders: Discharge Order (Routine); Ordered 08/29/21 Ordered By: Kelly Black Other Ambulatory Orders: Basic Metabolic Panel (Routine) Timeframe: 1 Week Facility: [facility] - Location: Lab - Main Lab Ordered By: Kelly Black Referrals: Gely Espinosa FNP [Primary Care Provider] - 09/06/21 10:00 am Clayton Bowles M.D [Physician] - 10/18/21 3:15 pm Maia Stoddard FNP [Nurse Practitioner] - 09/05/21 10:45 am Discharge Diet: Cardiac Discharge Activity: Resume usual activity Patient Instructions: Metoprolol (By mouth), Apixaban (By mouth), A-fib (Atrial Fibrillation) (GEN), Opioid Safety Activity Restrictions/Additional Instructions: Please go to heart and lung services to get your heart monitor at 2:45 pm today. Return to ER if you experience lightheadedness or develop any other symptoms such as fever, shortness of breath, chest pain, dizziness. 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
--- NOTE | 2021-08-29 11:30 | PC.NURSE ---
dc'd pts piv and tele. discharge instructions given, reviewed follow up appointments, medications and discharge instructions. pt verbalized understanding, no futher questions. pt wheeled to the heart and lung clinic for his appointment for the halter monitor placement.
== END 2021-08-29 10:50 | disposition home or self-care (01) | DRG 310 ==
LOC: ER 05:07 → ICU 06:03 → MEDSURG 08-27 03:28
PROVIDERS: Hospitalist; Admitting Provider Student in an Organized Health Care Education/Training Program; Emergency Provider Emergency Medicine; PCP Nurse Practitioner Family; Visit Provider Internal Medicine
DX: I48.91 Unspecified atrial fibrillation (principal); I71.4 Abdominal aortic aneurysm, without rupture; I10 Essential (primary) hypertension; E78.5 Hyperlipidemia, unspecified; K21.9 Gastro-esophageal reflux disease without esophagitis; G62.0 Drug-induced polyneuropathy; T50.905D Adverse effect of unspecified drugs, medicaments and biological substances, subsequent encounter
CPT/HCPCS: 36415; 71260; 74177; 80048; 83735; 84443; 85025; 93005; 93306; 93312; 93320; 93325; 94760; 96372; G0378; J1650; J2370; J2704; J3490; J7030; Q9967

== ENCOUNTER → 2021-08-29 11:03 | Outpatient (BNVA) | payer MEDICARE, SELFPAY | PROVIDERS: PCP Nurse Practitioner Family | DX: I48.91 Unspecified atrial fibrillation (principal) | CPT/HCPCS: 93246 ==

== ENCOUNTER → 2021-09-05 14:29 | Outpatient (BNVA) | payer MEDICARE, SELFPAY | PROVIDERS: PCP Nurse Practitioner Family; Visit Provider Nurse Practitioner Family | DX: I48.91 Unspecified atrial fibrillation (principal); I49.1 Atrial premature depolarization; I44.4 Left anterior fascicular block; R94.31 Abnormal electrocardiogram [ECG] [EKG] | CPT/HCPCS: 93005; 99214 ==

== ENCOUNTER 2021-09-10 23:26 | Observation (INO) | payer MEDICARE, SELFPAY ==
[2021-09-10 23:34] VITALS: BP 159/87; PULSE 59; RESP 14; TEMP 37.1; O2SAT 90; BMI 25.6
[2021-09-10 23:38] VITALS: O2SAT 89
--- NOTE | 2021-09-10 23:38 | PC.NURSE ---
pt placed 3LNC O2
--- NOTE | 2021-09-10 23:52 | ECG_ITS ---
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 Measurements Intervals Skippers Rate: 62 P: 51 VA: 157 QRS: -65 QRSD: 101 T: 30 QT: 405 QTc: 413 Interpretive Statements SINUS RHYTHM PATTERN CONSISTENT WITH PULMONARY DISEASE INCOMPLETE RIGHT BUNDLE BRANCH BLOCK [90+ ms QRS DURATION, TERMINAL R IN V1/V2, 40+ ms S IN I/aVL/V4/V5/V6] LEFT ANTERIOR FASCICULAR BLOCK [QRS AXIS <= -45, QR IN I, RS IN II] Compared to ECG 08/27/2021 09:24:46 Atrial fibrillation no longer present Myocardial infarct finding no longer present Electronically Signed On 09-11-2021 9:31:35 CDT by Prudencio Tai M.D. [email or web address]
--- NOTE | 2021-09-10 23:52 | XRR_ITS ---
PROCEDURE INFORMATION: Exam: XR Chest Exam date and time: 09/10/2021 11:56 PM Age: 75 years old Clinical indication: Chest pressure; Prior surgery; Surgery type: Gb; Patient HX: C/O chest pain. ; Additional info: Cp TECHNIQUE: Imaging protocol: Radiologic exam of the chest. Views: 1 view. COMPARISON: CT chest abd pel w con* 08/26/2021 9:16 AM FINDINGS: Lungs: There are bibasilar opacities representing atelectasis, similar to the prior CT from 08/26/2021. No consolidation. Pleural spaces: No pleural effusion. No pneumothorax. Heart/Mediastinum: Unremarkable. No cardiomegaly. The thoracic aorta is tortuous and atherosclerotic. Electronic device overlying the heart. Bones/joints: Redemonstration of a partially imaged postoperative findings of ACDF. XR/XR chest 1V portable [id number] IMPRESSION: No acute radiographic findings in the chest.
[2021-09-10 23:59] LABS: Basophils # 0.1 10^3/uL (0.0-0.1); Basophils % 0.6 %; Eosinophils # 0.3 10^3/uL (0.0-0.8); Eosinophils % 2.6 %; Hematocrit 44.7 % (42.0-52.0); Hemoglobin 14.6 g/dL (11.7-16.6); Lymphocytes # 1.9 10^3/uL (0.8-4.8); Lymphocytes % 19.1 %; Mean Corpuscular HGB Conc 32.7 g/dL (30.0-36.0); Mean Corpuscular Hemoglobin 28.7 pg (28.0-34.0); Mean Corpuscular Volume 87.8 fl (80-94); Mean Platelet Volume 12.4 fL (7.4-10.4); Monocytes # 0.6 10^3/uL (0.2-0.9); Monocytes % 6.4 %; Neutrophils # 7.12 10^3/uL (1.8-7.7); Nucleated Red Blood Cells % 0 %; Platelet Count 185 10^3/cmm (130-400); Red Blood Count 5.09 10^6/uL (4.1-5.3); Red Cell Distribution Width 12.9 % (12.1-15.1)
[2021-09-11] VITALS (10 sets, daily range): BP systolic 93–132; BP diastolic 55–86; PULSE 47–69; RESP 14–18; TEMP 36.2–36.6; O2SAT 90–98; BMI 25.6
[2021-09-11 00:04] LABS: INR 1.03 (0.8-1.2); Partial Thromboplastin Time 36.5 SECONDS (23.9-36.7)
[2021-09-11 00:14] LABS: Troponin(5th) Baseline 8 ng/L (0-15)
[2021-09-11 00:22] LABS: Alanine Aminotransferase 18 U/L (0-41); Albumin Level 4.3 g/dL (3.5-5.2); Alkaline Phosphatase 56 IU/L (40-130); Anion Gap 16.1 (5-19); Aspartate Amino Transferase 19 U/L (0-40); Blood Urea Nitrogen 16 mg/dL (8-23); Calcium 9.7 mg/dL (8.5-10.5); Carbon Dioxide 23 mmol/L (22-29); Chloride 103 mmol/L (98-107); Globulin 2.4 g/dL (1.3-4.6); Glucose 103 mg/dL (65-115); NT Pro B Type Natriuretic Pept 196 pg/mL (0-450); Osmolality Calculated 287 mOsm/kg (285-295); Potassium 4.1 mmol/L (3.5-5.1); Sodium 138 mmol/L (136-145); Total Bilirubin 0.3 mg/dL (0.15-1.2); Total Protein 6.7 g/dL (6.6-8.7)
[2021-09-11] MEDS: fentaNYL 50 mcg/mL INJ 2mL IVP (00:34)
[2021-09-11] MEDS: ondansetron 2 mg/ML SDV 2 mL 4 MG IVP ×2 (00:39→12:45)
[2021-09-11] MEDS: nitroglycerin 1 gm/inch oint Pkt 1 INCH TOPICAL (00:42)
--- NOTE | 2021-09-11 01:28 | ED_ITS ---
HPI - Chest Pain General: Chief Complaint: Chest Pain Stated Complaint: Chest Pain Time Seen by Provider: 09/10/21 23:46 History of Present Illness: 75-year-old gentleman with a history of atrial fibrillation, recently cardioverted electively as an inpatient. It was new onset at that point. He presents with chest discomfort. He does not have a history of coronary disease. He had a negative stress test a year ago. No recent stress testing or angiogram. He notes an episode of diaphoresis at home associated with chest pain. Chest pain is located to the left side of the chest and is nonradicular. MD complaint: chest pain Pertinent past history: other Onset (ago): hour(s) Timing of current episode: episodic Prior episodes: Yes Onset: during rest Pain radiation: none Severity: moderate Quality: aching and heaviness Relieving factors: nothing Exacerbating factors: nothing Associated symptoms: Reports diaphoresis and dyspnea; Deny abdominal pain, fever(s), leg edema, nausea, palpitations or vomiting Review of Systems Const: Reports: diaphoresis; Denies: fever(s) ENMT: Denies: throat pain Card: Reports: chest pain and irregular heart rhythm (see above); Denies: palpitations Resp: Reports: dyspnea GI: Denies: abdominal pain, nausea or vomiting Musc: Denies: neck pain Neuro: Denies: headache(s) PFS ED PFSH: Medical History AAA (abdominal aortic aneurysm) followed by Dr Ferrell, 4.8 cm 08/27/21 Chronic sinusitis Cyst of right kidney Gastritis and duodenitis GERD (gastroesophageal reflux disease) HTN (hypertension) Hyperlipidemia Peripheral neuropathy Surgical History History of back surgery History of colonoscopy History of esophagogastroduodenoscopy (EGD) 2020 History of sinus surgery Hx of appendectomy Hx of cholecystectomy Hx of knee surgery Hx of neck surgery Family History Other CAD (coronary artery disease) Cancer Diabetes Hyperlipidemia Hypertension Lung disease Stroke Denies family history of Clotting disorder Dementia Chronic kidney disease (CKD) Anesthesia complication Bleeding disorder Family history of premature coronary artery disease Social History (Reviewed 09/11/21 @ 01:34 by KAMINI Mckenna Smoking and tobacco status: never smoked Second hand smoke exposure: Yes Alcohol intake: former Physical Exam Const: GENERAL APPEARANCE: cooperative and well kempt; not frail appearing HENMT: COMMON NORMALS: normocephalic, atraumatic and Normal external nose present HEAD & SCALP: normocephalic and atraumatic FACE & SINUS: normal facial exam and face symmetric NOSE: Normal external nose present Eye: COMMON NORMALS: Equal, round and reactive pupils present and EOMs intact bilaterally PUPIL: Yes Equal, round and reactive pupils present Neck/C-Spine: GENERAL: Yes trachea midline Chest: CHEST: Yes Symmetrical chest wall rise and No tenderness Resp: COMMON NORMALS: normal respiratory effort, No use of accessory muscles and clear to auscultation bilaterally AUSCULTATION: clear to auscultation bilaterally Cardio: COMMON NORMALS: regular rhythm RATE: bradycardic RHYTHM: regular rhythm GI: COMMON NORMALS: Normal to inspection, nondistended, normoactive bowel sounds present, Soft to palpation and non-tender PALPATION: Yes Soft to palpation Extremity: COMMON NORMALS: no pedal edema Neuro: KORY COMA SCALE: document GCS findings Kory coma scale eye opening: Spontaneous Kory coma scale verbal response: Orientated [place] coma scale motor response: Obey commands Kory coma scale total score: 15 Psych: APPEARANCE: Yes well kempt Course Vital Signs: Vital signs: Vital Signs Temperature 98.8 F 09/10/21 23:34 Pulse Rate 53 L 09/11/21 02:19 Respiratory Rate 14 09/11/21 02:19 Blood Pressure 108/68 09/11/21 02:19 Pulse Oximetry 90 09/11/21 02:19 Oxygen Delivery Ca thod 09/10/21 23:38 MDM - Chest Pain Medical Decision Making Patient's chest pain improved after Nitropaste, and 50 mcg of fentanyl. He is fully anticoagulated. He has not taken his metoprolol in 2 days. Blood pressure is now normal, 116/74, he remains bradycardic at 55. Saturations have been 90%. His CBC is normal his BMP is normal. His troponin is 8. His EKG shows sinus bradycardia with an incomplete right bundle branch block. No acute ST changes. Rate is 53. Chest x-ray is essentially normal. He will be observed given his history. Lab Data : 09/10/21 23:43 07/31/22 23:43 Radiology Impressions Chest X-Ray 09/10/21 23:52 IMPRESSION: No acute radiographic findings in the chest. Laboratory Results WBC 10.0 10^3/uL (4.0-10.0) 09/10/21 23:43 RBC 5.09 10^6/uL (4.1-5.3) 09/10/21 23:43 Hgb 14.6 g/dL (11.7-16.6) 09/10/21 23:43 Hct 44.7 % (42.0-52.0) 09/10/21 23:43 MCV 87.8 fl (80-94) 09/10/21 23:43 MCH 28.7 pg (28.0-34.0) 09/10/21 23:43 MCHC 32.7 g/dL (30.0-36.0) 09/10/21 23:43 RDW 12.9 % (12.1-15.1) 09/10/21 23:43 Plt Count 185 10^3/cmm (130-400) 09/10/21 23:43 MPV 12.4 fL (7.4-10.4) H 09/10/21 23:43 Neut % (Auto) 71.0 % 09/10/21 23:43 Lymph % (Auto) 19.1 % 09/10/21 23:43 [place] % (Auto) 6.4 % 09/10/21 23:43 Eos % (Auto) 2.6 % 09/10/21 23:43 Baso % (Auto) 0.6 % 09/10/21 23:43 Neut # (Auto) 7.12 10^3/uL (1.8-7.7) 09/10/21 23:43 Lymph # (Auto) 1.9 10^3/uL (0.8-4.8) 09/10/21 23:43 [place] # (Auto) 0.6 10^3/uL (0.2-0.9) 09/10/21 23:43 Eos # (Auto) 0.3 10^3/uL (0.0-0.8) 09/10/21 23:43 Baso # (Auto) 0.1 10^3/uL (0.0-0.1) 09/10/21 23:43 Nucleated RBC % (auto) 0 % 09/10/21 23:43 Nucleated RBCs # 0.0 /100WBC 09/10/21 23:43 PT 13.80 SECONDS (12.1-14.9) 09/10/21 23:43 INR 1.03 (0.8-1.2) 09/10/21 23:43 APTT 36.5 SECONDS (23.9-36.7) 09/10/21 23:43 Sodium 138 mmol/L (136-145) 09/10/21 23:43 Potassium 4.1 mmol/L (3.5-5.1) 09/10/21 23:43 Chloride 103 mmol/L (98-107) 09/10/21 23:43 Carbon Dioxide 23 mmol/L (22-29) 09/10/21 23:43 Anion Gap 16.1 (5-19) 09/10/21 23:43 BUN 16 mg/dL (8-23) 09/10/21 23:43 Creatinine 1.2 mg/dL (0.7-1.2) 09/10/21 23:43 GFR Calculation Not Reportable 09/10/21 23:43 Glucose 103 mg/dL (65-115) 09/10/21 23:43 Calculated Osmolality 287 mOsm/kg (285-295) 09/10/21 23:43 Calcium 9.7 mg/dL (8.5-10.5) 09/10/21 23:43 Total Bilirubin 0.3 mg/dL (0.15-1.2) 09/10/21 23:43 AST 19 U/L (0-40) 09/10/21 23:43 ALT 18 U/L (0-41) 09/10/21 23:43 Alkaline Phosphatase 56 IU/L (40-130) 09/10/21 23:43 Troponin T Baseline 8 ng/L (0-15) 09/10/21 23:43 Troponin T 120 Minute 6.46 ng/L (0-15) 09/11/21 01:35 NT-Pro-B Natriuret Pep 196 pg/mL (0-450) 09/10/21 23:43 Total Protein 6.7 g/dL (6.6-8.7) 09/10/21 23:43 Albumin 4.3 g/dL (3.5-5.2) 09/10/21 23:43 Globulin 2.4 g/dL (1.3-4.6) 09/10/21 23:43 Discharge Plan Discharge Patient Disposition: Placed in Observation Admit Provider: Jeanine Rosario Clinical Impression: Chest pain Coding Level of Care Code ED Welfare Project Manager for g Fwd Exam Comprehensive
--- NOTE | 2021-09-11 01:52 | ECG_ITS ---
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 Measurements Intervals [place] Rate: 53 P: 68 CT: 156 QRS: -60 QRSD: 105 T: 21 QT: 431 QTc: 407 Interpretive Statements SINUS BRADYCARDIA PATTERN CONSISTENT WITH PULMONARY DISEASE INCOMPLETE RIGHT BUNDLE BRANCH BLOCK [90+ ms QRS DURATION, TERMINAL R IN V1/V2, 40+ ms S IN I/aVL/V4/V5/V6] LEFT ANTERIOR FASCICULAR BLOCK [QRS AXIS <= -45, QR IN I, RS IN II] Compared to ECG 09/10/2021 23:35:11 Sinus rhythm no longer present Electronically Signed On 09-11-2021 9:34:29 CDT by Prudencio Tai M.D. [id number]
[2021-09-11] MEDS: aspirin 325 mg Tablet PO (02:13)
[2021-09-11 02:16] LABS: Troponin 5 2HR 6.46 ng/L (0-15)
[2021-09-11 02:33] LABS: Troponin 5 2HR Delta -1.54 ABS# (0-10)
--- NOTE | 2021-09-11 04:27 | P.HP_ITS ---
Providers/Chief Complaint Admitting Physician: Jeanine Rosario MD Primary Care Provider: YOAV Johnston Chief Complaint: Chest Pain History of Present Illness Cong Nath is a 75 year old male with abdominal aortic aneurysm and hypertension, New onset A fib diagnosed on 08/26 s/p MARICHUY cardioversion. he has remained in sinus rhythm since then. Recently his metoprolol was brought down from 50 mg p.o. twice daily to 25 mg p.o. twice daily due to bradycardia. He presents to the emergency room today with chief complaints of chest pain. Pain was associated with diaphoresis. No apparent exacerbating or relieving factors. It was nonradiating, 06/11/2009 intensity. This resolved with receiving fentanyl in the ER. Denies any palpitations syncope or dyspnea. He is saturating 98%. Review of Systems General: Reports: 10 or more systems reviewed and unremarkable except in HPI and below Const: Denies: fever(s), chills or body aches Eyes: Denies: change in vision, blurry vision or photophobia ENMT: Reports: hoarseness; Denies: throat pain, enlarged tonsils, odynophagia or nasal congestion Card: Denies: chest pain, palpitations, irregular heart rhythm, edema, swelling of feet/ankles, lightheadedness, pre-syncope, dyspnea on exertion or orthopnea Resp: Denies: dyspnea, productive cough, non-productive cough, wheezing, stridor, pain on inspiration, change in phlegm color, hemoptysis or chest congestion GI: Denies: abdominal pain, nausea, vomiting, hematemesis, coffee ground emesis, dysphagia, heartburn, diarrhea, constipation, GI cramping, change in stool character, hematochezia or melena : Denies: flank pain, dysuria, urinary frequency, urinary urgency, urinary hesitancy or hematuria Musc: Denies: neck pain, back pain, extremity pain, joint swelling, joint warmth or deformity Neuro: Denies: headache(s), numbness in extremities, weakness in extremities, sensory changes, difficulty walking, frequent falls, dizziness, vertigo, behavioral changes, Slurred speech present or seizure-like activity Psych: Denies: anxiety, depression, suicidal ideation or homicidal ideation Endo: Denies: polyuria, polydipsia, tired all the time, cold intolerance or hot flashes Angus/Lymph: Denies: easy bruising or easy bleeding Medications/Allergies Home Medications Medication Instructions Recorded Confirmed Last Taken Type fenofibrate nanocrystallized 145 See Rx Instructions .Route 05/29/21 09/11/21 09/10/21 Rx mg tablet .COMPLEX #90 tabs pantoprazole 40 mg tablet,delayed See Rx Instructions .Route 06/02/21 09/11/21 09/10/21 Rx release .COMPLEX #90 tabs loratadine 10 mg tablet 10 mg PO DAILY #90 tabs 07/17/21 09/11/21 09/10/21 Rx gabapentin 400 mg capsule See Rx Instructions .Route 08/15/21 09/11/21 09/10/21 Rx .COMPLEX #90 caps lisinopril 5 mg tablet See Rx Instructions .Route 08/21/21 09/11/21 09/10/21 Rx .COMPLEX #60 tabs metoprolol tartrate 25 mg tablet 25 mg PO BID #180 tabs 09/05/21 09/11/21 09/09/21 Rx fluticasone propionate 50 1 spray intranasal BID 09/07/21 09/07/21 Unknown History mcg/actuation nasal spray,suspension apixaban 5 mg tablet (Eliquis) 5 mg PO BID 09/11/21 09/11/21 09/10/21 18:00 History Allergies Allergy/AdvReac Type Severity Reaction Status Date / Time atorvastatin [From Lipitor] Allergy abdominal Verified 09/07/21 15:13 pain hydrocodone Allergy abdominal Verified 09/07/21 15:13 pain PFSH Acute PFSH: Medical History AAA (abdominal aortic aneurysm) followed by Dr Ferrell, 4.8 cm 08/27/21 Chronic sinusitis Cyst of right kidney Gastritis and duodenitis GERD (gastroesophageal reflux disease) HTN (hypertension) Hyperlipidemia Peripheral neuropathy Surgical History History of back surgery History of colonoscopy History of esophagogastroduodenoscopy (EGD) 2020 History of sinus surgery Hx of appendectomy Hx of cholecystectomy Hx of knee surgery Hx of neck surgery Family History Other CAD (coronary artery disease) Cancer Diabetes Hyperlipidemia Hypertension Lung disease Stroke Denies family history of Clotting disorder Dementia Chronic kidney disease (CKD) Anesthesia complication Bleeding disorder Family history of premature coronary artery disease Social History Smoking and tobacco status: never smoked Second hand smoke exposure: Yes Alcohol intake: former Vitals/I&O/Wt Last Vital Signs Temp 98.8 F 09/10/21 23:34 Pulse 53 L 09/11/21 02:19 Resp 14 09/11/21 02:19 BP 108/68 09/11/21 02:19 Pulse Ox 90 09/11/21 02:19 O2 Del Method 09/11/21 02:38 Weight last 48 hrs Weight 87.99 kg Weight 87.997 kg Physical Exam Narrative: General: No acute distress, AO x3 HEENT: PERRLA, pupils bilaterally equal and reactive, pallors not present Chest: Normal vesicular breath sounds, no added sounds, equal good air entry bilaterally CVS: S1-S2 regular, no murmurs, no tachycardia, no gallops, no rubs Abdomen: Soft, nontender, no organomegaly, bowel sounds present Neuro: No focal deficits, no facial deformity, AO x3, power 5/5 in all limbs Data : 09/10/21 23:43 09/10/21 23:43 A&P Assessment and plan (1) Chest pain: 75-year-old male today presenting with chest pain with previous past history notable as above. Presents today with chief complaints of chest pain. EKG shows sinus bradycardia, no acute ST-T wave changes. Baseline troponin is at 6 currently. Will admit in observation and trend at 2 and 6 hours. Recent echocardiogram from August 26 had shown an LVEF of 55 to 60%, no other abnormalities. CT of his chest had shown fusiform aortic aneurysm infrarenally 4 x 4.5 cm. Last stress test in June 2020 had shown fixed perfusion defect in the apical inferior and mid inferior ocol consistent with a prior infarct. His pain is currently completely resolved with 50 mics of fentanyl Low suspicion for aortic dissection at this time given that patient is hemodynamically stable. Chest pain is resolved. Will observe overnight for troponin trend to rule out ACS. Status: Acute Attestations Medical Necessity Statement*: Anticipate less than 2 midnight stay for evaluation of chest pain. Coding Level of Care Code Acute [place] Laboratory Assistant for Chg Fwd Diagnoses Chest pain R07.9
[2021-09-11 05:49] LABS: Troponin 5 6HR 6.56 ng/L (0-15)
--- NOTE | 2021-09-11 05:52 | ECG_ITS ---
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 Measurements Intervals [place] Rate: 53 P: 56 [place]: 159 QRS: -59 QRSD: 94 T: 8 QT: 415 QTc: 390 Interpretive Statements SINUS BRADYCARDIA WITH SINUS ARRHYTHMIA INCOMPLETE RIGHT BUNDLE BRANCH BLOCK [90+ ms QRS DURATION, TERMINAL R IN V1/V2, 40+ ms S IN I/aVL/V4/V5/V6] LEFT ANTERIOR FASCICULAR BLOCK [QRS AXIS <= -45, QR IN I, RS IN II] Compared to ECG 09/11/2021 01:37:44 No significant changes Electronically Signed On 09-11-2021 9:34:34 CDT by Prudencio Tai M.D. [id number]
[2021-09-11 05:54] LABS: Troponin 5 6HR Delta -1.44 ng/L (0-12)
[2021-09-11] MEDS: gabapentin 400 mg Capsule PO (08:55)
[2021-09-11] MEDS: pantoprazole DR 40 mg Tablet PO (08:55)
[2021-09-11] MEDS: fenofibrate 145 mg Tablet PO (08:56)
[2021-09-11] MEDS: acetaminophen 325 mg Tablet 650 MG PO (08:56)
[2021-09-11] MEDS: apixaban 5 mg Tablet PO ×2 (08:56→17:35)
[2021-09-11] MEDS: lisinopril 5 mg Tablet PO ×2 (09:00→17:36)
--- NOTE | 2021-09-11 09:45 | NMCV_ITS ---
NM yoly perf SPECT r/s* [id number] Cong Nath Age: 75 Gender: M : 1945 Exam Date: 09/11/2021 11:26 Ordering Phys: Pedrito Hector MD Technologist: KATELIN Asencio Exam Location: [facility] Indications: CHEST PAIN STRESS TEST Please see separate stress test report in Ephiphany for full findings IMAGE PROTOCOL Rest/Stress 1 Lexiscan Day Radiopharmaceutical Dose (mCi) Administration Site Administered by Rest: Tc-99m 11.0 IV KATELIN Armendariz Sestamibi Stress:Tc-99m 32.8 IV KATELIN Armendariz Sestamibi Rest: 60 Discovery 630 Stress: 30 Discovery 630 0.4mg Lexiscan. Images obtained in supine and prone position. SPECT RESULTS Technical Quality: Excellent Raw Data Analysis: Normal Image Corrections: No attenuation or motion correction applied Summed Stress Score: 0 Summed Rest Score: 0 Summed Difference Score: 0 PERFUSION FINDINGS SPECT images demonstrate homogeneous tracer distribution throughout the myocardium. FUNCTIONAL RESULTS (calculated via Gated SPECT) Stress Image LV EF (%): 72 FUNCTIONAL FINDINGS: Normal LV systolic function IMPRESSIONS 1. Normal myocardial perfusion imaging with no evidence of ischemia 2. LV systolic function is normal Clayton Bowles MD (Electronically Signed) Final Date: 11 September 2021 17:18 S
--- NOTE | 2021-09-11 09:58 | ECG_ITS ---
[facility] Test Date: 2021-09-11 Pat Name: Cong Nath Department: Room: 255 Gender: Male Supervising Architect: : 1945 Requested By: Pedrito Hector Order Number: [id number] Nisha MD: Clayton Bowles M.D. Interpretive Statements NAME OF STUDY: LEXISCAN SESTAMIBI STRESS TEST INDICATION: [Angina] Procedure: At the baseline, the blood pressure was 101/71 mmHg with a heart rate of 52 bpm. The electrocardiogram showed normal sinus bradycardia, left axis deviation with normal ST and T's. The Lexiscan was infused over a period of 20 seconds. A total of 0.4 mg of Lexiscan was infused. The stress phase was continued for a total of 5 minutes. Heart rate was at the end of stress phase was 77 bpm and a blood pressure of 115/69 mmHg. The EKG at the peak infusion revealed since normal sinus rhythm with no significant ST-T wave changes. Sestamibi was injected 20 seconds after the Lexiscan infusion. Blood pressure at the end of recovery phase was 118/66mmHg with a heart rate of 70 bpm. Conclusion: 1. Normal EKG response to Lexiscan infusion 2. No Lexiscan induced chest pain or cardiac arrhythmia. 3. Normal blood pressure and heart rate response. 4. Sestamibi/sestamibi perfusion scan pending; see separate report. Electronically Signed On 10-01-2021 23:49:12 CDT by Clayton Bowles M.D. [id number]
--- NOTE | 2021-09-11 10:43 | P.DS_ITS ---
Discharge Providers Date of Admission: 09/11/21 01:55 Date of Discharge: September 11, 2021 Attending Provider at Admission: Jeanine Rosario MD Attending Provider at Discharge: Pedrito Hector MD Primary Care Provider: YOAV Johnston Diagnoses at Discharge Discharge Diagnosis (1) Chest pain: Status: Acute Reason for Visit Reason for Visit: Chest Pain Hospital Course Hospital Course 75-year-old male who was recently discharged from the hospital on 08/29 after cardioversion for his A. fib RVR. He is also seeing Dr. Richards for his aortic aneurysm 4.8 cm. This time he presented with chief complaint of left-sided chest discomfort which he is describing as squeezing pain in left anterior axillary line which subsided after giving fentanyl. Troponins unremarkable EKG showed sinus bradycardia. He is chest pain-free. Cardiac stress test was requested, echo was not repeated. Blood pressure 110s/65 mmHg, blood pressure at the time of admission was high. Patient had eaten his breakfast this morning, I have requested stress lab to do a stress of around noon, I had kept patient n.p.o. after breakfast. He also has history of esophagitis, peripheral neuropathy and hypertension. Currently his metoprolol is on hold because of bradycardia , will reduce the dsoe to once daily. He will be discharged on event monitor and Eliquis. Which is his home regimen. Stress test is unremarkable. Physical Exam Narrative: Patient is awake and alert Euvolemic Pleasant cooperative Nonfocal neuro exam Saturating well on room air Discharge Data Studies Completed and Pending Completed Studies During Hospitalization Category Date Time Status XR chest 1V portable [id number] Stat Exams 09/10/21 23:52 Completed Pending at discharge Category Date Time Status Sestamibi Stress Test Request Routine Exams 09/11/21 09:58 Ordered Sestamibi Stress Test Request Routine Exams 09/12/21 06:00 Stop Req NM yoly perf SPECT r/s* [id number] Routine Nuc Med 09/11/21 09:45 Ordered Radiology Impressions Chest X-Ray 09/10/21 23:52 IMPRESSION: No acute radiographic findings in the chest. Laboratory Results WBC 10.0 10^3/uL (4.0-10.0) 09/10/21 23:43 RBC 5.09 10^6/uL (4.1-5.3) 09/10/21 23:43 Hgb 14.6 g/dL (11.7-16.6) 09/10/21 23:43 Hct 44.7 % (42.0-52.0) 09/10/21 23:43 MCV 87.8 fl (80-94) 09/10/21 23:43 MCH 28.7 pg (28.0-34.0) 09/10/21 23:43 MCHC 32.7 g/dL (30.0-36.0) 09/10/21 23:43 RDW 12.9 % (12.1-15.1) 09/10/21 23:43 Plt Count 185 10^3/cmm (130-400) 09/10/21 23:43 MPV 12.4 fL (7.4-10.4) H 09/10/21 23:43 Neut % (Auto) 71.0 % 09/10/21 23:43 Lymph % (Auto) 19.1 % 09/10/21 23:43 [place] % (Auto) 6.4 % 09/10/21 23:43 Eos % (Auto) 2.6 % 09/10/21 23:43 Baso % (Auto) 0.6 % 09/10/21 23:43 Neut # (Auto) 7.12 10^3/uL (1.8-7.7) 09/10/21 23:43 Lymph # (Auto) 1.9 10^3/uL (0.8-4.8) 09/10/21 23:43 [place] # (Auto) 0.6 10^3/uL (0.2-0.9) 09/10/21 23:43 Eos # (Auto) 0.3 10^3/uL (0.0-0.8) 09/10/21 23:43 Baso # (Auto) 0.1 10^3/uL (0.0-0.1) 09/10/21 23:43 Nucleated RBC % (auto) 0 % 09/10/21 23:43 Nucleated RBCs # 0.0 /100WBC 09/10/21 23:43 PT 13.80 SECONDS (12.1-14.9) 09/10/21 23:43 INR 1.03 (0.8-1.2) 09/10/21 23:43 APTT 36.5 SECONDS (23.9-36.7) 09/10/21 23:43 Sodium 138 mmol/L (136-145) 09/10/21 23:43 Potassium 4.1 mmol/L (3.5-5.1) 09/10/21 23:43 Chloride 103 mmol/L (98-107) 09/10/21 23:43 Carbon Dioxide 23 mmol/L (22-29) 09/10/21 23:43 Anion Gap 16.1 (5-19) 09/10/21 23:43 BUN 16 mg/dL (8-23) 09/10/21 23:43 Creatinine 1.2 mg/dL (0.7-1.2) 09/10/21 23:43 GFR Calculation Not Reportable 09/10/21 23:43 Glucose 103 mg/dL (65-115) 09/10/21 23:43 Calculated Osmolality 287 mOsm/kg (285-295) 09/10/21 23:43 Calcium 9.7 mg/dL (8.5-10.5) 09/10/21 23:43 Total Bilirubin 0.3 mg/dL (0.15-1.2) 09/10/21 23:43 AST 19 U/L (0-40) 09/10/21 23:43 ALT 18 U/L (0-41) 09/10/21 23:43 Alkaline Phosphatase 56 IU/L (40-130) 09/10/21 23:43 Troponin T Baseline 8 ng/L (0-15) 09/10/21 23:43 Troponin T 120 Minute 6.46 ng/L (0-15) 09/11/21 01:35 Delta Troponin T -1.54 ABS# (0-10) L 09/11/21 01:35 Troponin T Hi Sens 6Hr 6.56 ng/L (0-15) 09/11/21 05:19 Troponin T Hi Sens 6Hr Delta -1.44 ng/L (0-12) L 09/11/21 05:19 NT-Pro-B Natriuret Pep 196 pg/mL (0-450) 09/10/21 23:43 Total Protein 6.7 g/dL (6.6-8.7) 09/10/21 23:43 Albumin 4.3 g/dL (3.5-5.2) 09/10/21 23:43 Globulin 2.4 g/dL (1.3-4.6) 09/10/21 23:43 Vitals Last Vital Signs Temp 97.5 F L 09/11/21 07:57 Pulse 54 L 09/11/21 07:57 Resp 16 09/11/21 07:57 BP 110/65 09/11/21 07:57 Pulse Ox 97 09/11/21 07:57 O2 Del Method 09/11/21 02:38 Discharge Plan Discharge Patient Disposition: Home Condition: Stable Prescriptions: Continued fluticasone propionate [Flonase Allergy Relief] 50 mcg/actuation spray,suspension 1 spray intranasal DAILY@06 Rx Instructions: administer into each nostril Eliquis 5 mg tablet 5 mg PO BID@06,18 gabapentin 400 mg capsule 400 mg PO DAILY@06 pantoprazole 40 mg tablet,delayed release (DR/EC) 40 mg PO BID@06,18 lisinopril 5 mg tablet 5 mg PO BID@06,18 fenofibrate nanocrystallized 145 mg tablet 145 mg PO DAILY@18 Changed metoprolol tartrate 25 mg tablet 25 mg PO DAILY Qty: 7 0RF Discharge Orders: Discharge Order (Routine); Ordered 09/11/21 Ordered By: Pedrito Hector Other Ambulatory Orders: MCT/Event Monitor 7 Days (Routine) Timeframe: 1 Week Facility: [facility] - Location: Radiology Ordered By: Pedrito Hector Referrals: Gely Espinosa FNP [Primary Care Provider] - Maia Stoddard FNP [Nurse Practitioner] - 2 weeks Patient Instructions: Opioid Safety Discharge Attestations Time Spent in Discharge Care*: less than 30 min Quality Metrics Clinical Quality Measures [ No reported AMI, CVA or VTE this stay] Coding Level of Care Code Acute Chg FW DC note Diagnoses Chest pain R07.9
--- NOTE | 2021-09-11 11:35 | USCV_ITS ---
Cong Nath Age: 75 Gender: M : 1945 Exam Date: 09/11/2021 13:49 Ordering Phys: Pedrito Hector MD Technologist: Brayden Simmons Exam Location: [facility] – [place] Indication: syncope Risk Factors: Previous Vascular Surgery: Right Brachial BP: / Left Brachial BP: / Right Left Velocity (cm/s) Spectral Plaque Velocity (cm/s) Spectral Plaque Syst/Diast Broadening Syst/Diast Broadening 55.90/ 8.50 Prox CCA 68.40 / 16.20 56.50/ 13.80 Mid CCA 65.80 / 13.70 63.80/ 15.10 Hetro Distal CCA 69.20 / 19.70 Hetro 72.60/ 16.20 Hetro Prox ICA 51.30 / 12.40 Hetro 54.70/ 15.40 Mid ICA 65.30 / 14.00 54.70/ 15.40 Distal ICA 60.60 / 17.90 79.50 ECA 156.90 1.14 ICA/CCA 0.94 Antegrade Vertebral Antegrade 41.90/ 8.50 cm/s 35.70/ 7.80 cm/s Tri Subclavian Tri 88.90 98.65 CONCLUSIONS Right ICA stenosis <50%. Moderate atheromatous plaque right carotid bulb/ICA. Left ICA stenosis <50%. Moderate atheromatous plaque left carotid bulb/ICA. Normal antegrade Doppler flow noted in the right vertebral artery. Normal antegrade Doppler flow noted in the left vertebral artery. Heron Judd MD (Electronically Signed) Final Date: 11 September 2021 15:26 S
[2021-09-11] MEDS: regadenoson 0.4 Mg/5 ml Syringe IVP (12:23)
== END 2021-09-11 18:00 | disposition home or self-care (01) ==
LOC: ER 09-11 02:05 → MEDSURG 09-11 02:07
PROVIDERS: Admitting Provider Student in an Organized Health Care Education/Training Program; Emergency Provider Emergency Medicine; PCP Nurse Practitioner Family; Visit Provider Internal Medicine
DX: R07.89 Other chest pain (principal); I48.91 Unspecified atrial fibrillation; K21.9 Gastro-esophageal reflux disease without esophagitis; I10 Essential (primary) hypertension; E78.5 Hyperlipidemia, unspecified
CPT/HCPCS: 36415; 71045; 78452; 80053; 83880; 84484; 85025; 85610; 85730; 93005; 93017; 93880; 96374; 96375; 96376; 99285; A9500; G0378; J2405; J2785; J3010

== ENCOUNTER → 2021-09-18 13:59 | Outpatient (BNVA) | payer MEDICARE, SELFPAY | PROVIDERS: PCP Nurse Practitioner Family; Visit Provider Nurse Practitioner Family | DX: I48.91 Unspecified atrial fibrillation (principal); I10 Essential (primary) hypertension | CPT/HCPCS: 99213; 99214 ==

== ENCOUNTER → 2021-10-06 10:01 | Outpatient (BNVA) | payer MEDICARE, SELFPAY | PROVIDERS: PCP Nurse Practitioner Family; Visit Provider Internal Medicine | DX: I10 Essential (primary) hypertension (principal); I71.4 Abdominal aortic aneurysm, without rupture; I48.91 Unspecified atrial fibrillation; Z79.01 Long term (current) use of anticoagulants; F17.290 Nicotine dependence, other tobacco product, uncomplicated | CPT/HCPCS: 99214 ==

== ENCOUNTER → 2021-10-12 15:37 | Outpatient (BNVA) | payer MEDICARE, SELFPAY | PROVIDERS: PCP Nurse Practitioner Family; Visit Provider Surgery | DX: K21.9 Gastro-esophageal reflux disease without esophagitis (principal) | CPT/HCPCS: 99213 ==

== ENCOUNTER 2021-11-24 06:38 | Day surgery (SDC) | payer MEDICARE, SELFPAY ==
[2021-11-21 12:21] VITALS: BMI 25.0
[2021-11-24 07:13] VITALS: BP 125/81; PULSE 57; RESP 18; TEMP 36.1; O2SAT 97; BMI 25.0
[2021-11-24] MEDS: sodium chloride 0.9% 1,000 ML 30 ML IV (07:18)
--- NOTE | 2021-11-24 07:55 | ANES.PREANE2 ---
Pre-Anesthetic Assessment Height/Weight: Height 1.85 m Weight 86.183 kg Temp Pulse Resp BP Pulse Ox O2 Del Method 97 F L 57 L 18 125/81 97 11/24/21 07:13 11/24/21 07:13 11/24/21 07:13 11/24/21 07:13 11/24/21 07:13 11/24/21 07:13 Preop Diagnosis: Acid reflux Operation Date: 11/24/21 08:15 Proposed Procedures p EGD 67000,K12.9(Not Applicable) - Devaughn Jang MD Familial anesthetic complications: None Was Beta Camelia taken within 24 hours: N/A Was Clonidine taken within 24 hours: N/A Last intake: Intake Last Liquid Date 11/23/21 Last Liquid Time 16:30 Last Solid Date 11/23/21 Last Solid Time 16:30 Social Tobacco and No alcohol Exam alert, oriented x 3, clear to auscultation bilaterally and regular rate & rhythm Airway Mallampati: Class II Dentition: chipped CV/HEM Hypertension AAA GI Gastroesophageal Reflux Disease Metabolic Hyperlipidemia Anesthetic Plan ASA status: 3 Anesthesia: MAC Risk of > 500 ml blood loss (7ml/kg in children): No Medications/Allergies Home Medications Medication Instructions Recorded Confirmed Last Taken Type fluticasone propionate 50 1 spray intranasal DAILY@09/07/21 11/21/21 Unknown History mcg/actuation nasal spray,suspension (Flonase Allergy Relief) gabapentin 400 mg capsule 400 mg PO DAILY@09/11/21 11/21/21 11/23/21 History pantoprazole 40 mg tablet,delayed 40 mg PO BID@09/11/21 11/21/21 11/23/21 History release fenofibrate nanocrystallized 145 145 mg PO DAILY@18 #90 tabs 09/21/21 11/24/21 11/22/21 Rx mg tablet apixaban 5 mg tablet (Eliquis) 5 mg PO BID@ #180 tabs 10/06/21 11/23/21 11/22/21 Rx lisinopril 10 mg tablet See Rx Instructions PO BID #90 tabs 11/07/21 11/21/21 11/23/21 Rx Allergies Allergy/AdvReac Type Severity Reaction Status Date / Time atorvastatin [From Lipitor] Allergy ADR-Cramping Verified 11/21/21 12:19 of the Muscles hydrocodone Allergy abdominal Verified 11/21/21 12:19 pain [id number]-[id number] Reductase Allergy ADR-Cramping Verified 11/21/21 12:19 Inhibitor of the Muscles Current Medications Generic Name Dose Route Start Last Admin Trade Name Taya PRN Reason Stop Dose Admin Sodium Chloride 1,000 mls @ 30 mls/hr 11/24/21 07:00 11/24/21 07:18 Sodium Chloride 0.9% IV 11/25/21 06:59 30 mls/hr .Q24H JARRELL Administration PFSH Anesthesia Medical History AAA (abdominal aortic aneurysm) followed by Dr Ferrell, 4.8 cm 08/27/21 Chest pain Chronic sinusitis Cyst of right kidney Gastritis and duodenitis GERD (gastroesophageal reflux disease) HTN (hypertension) Hyperlipidemia Peripheral neuropathy Surgical History History of back surgery History of colonoscopy History of esophagogastroduodenoscopy (EGD) 2020 History of sinus surgery Hx of appendectomy Hx of cholecystectomy Hx of knee surgery Hx of neck surgery Family History Other CAD (coronary artery disease) Cancer Diabetes Hyperlipidemia Hypertension Lung disease Stroke Denies family history of Clotting disorder Dementia Chronic kidney disease (CKD) Anesthesia complication Bleeding disorder Family history of premature coronary artery disease Social History Smoking and tobacco status: current every day smoker pipe Pipe Details: more than 10 years Second hand smoke exposure: Yes Alcohol intake: former Data Anesthesia Cardiac Studies: Echocardiogram 08/26/21 Transesophageal Echocardiogram 08/28/21 Sestamibi Stress Test (Cardiology) 09/11/21 Holter Monitor 08/29/21
--- NOTE | 2021-11-24 08:05 | P.HP_ITS ---
Same Day Surgery H&P Indication for Procedure/HPI DATE OF PROCEDURE: November 24, 2021 CHIEF COMPLAINT/INDICATIONFOR SURGICAL PROCEDURE: Worse acid reflux PREOP DIAGNOSIS: Acid reflux PLANNED PROCEDURE: Operation Date: 11/24/21 08:15 Proposed Procedures p EGD 95804,K12.9(Not Applicable) - Devaughn Jang MD 03/10/2020 This is a pleasant 74 years old gentleman referred to my practice with history of bloating and vomiting without any evidence of hematemesis or hematochezia.? Patient does not report any specific explanation for his symptoms yet all kinds of food according to his description make him symptomatic.? Undergone an EGD a while ago about 5 years and he does not remember any significant findings and he had a colonoscopy 2 years ago and was told that he has diverticulosis also he reports to me when I asked him he did have gallbladder surgery. Patient reports that he has lactose intolerance when asked him about different types of food. 05/04/2020 Patient undergone an EGD that showed reflux esophagitis, gastritis and duodenitis. 05/18/2020 Patient comes today for follow-up status post EGD.And was found to have GERD, gastritis and duodenitis.Also patient did undergo a modified barium swallow per speech pathology and did have specific recommendations.Which were printed and given to the patient. Interim history 03/22/2020 Patient was placed on PPI therapy in the form of pantoprazole 40 mg once a day.? And it seems that the patient's symptoms are getting worse, he continues to smoke pipe, he is referred to my practice today for reevaluation. 06/14/2021 Patient comes today and generally is feeling better.? Has been on double dose PPI.? Patient has been trying to cut down on smoking his pipe.? Denies any nausea vomiting fevers or chills. Comes today escorted by his spouse.? And overall he feels the symptoms of acid reflux and being under better control. 10/12/2021 Patient comes today for follow-up and he reports that he has been on double dose PPI and in spite of that he has been having worsening symptoms.? He was on a single dose PPI for a brief period of time but its not working. Interim history 11/24/2021 Patient comes today for diagnostic EGD ROS All systems have been reviewed negative except as for the above or per problem list. Medications/Allergies* Home Medications Medication Instructions Recorded Confirmed Type fluticasone propionate 50 1 spray intranasal DAILY@09/07/21 11/21/21 History mcg/actuation nasal spray,suspension (Flonase Allergy Relief) gabapentin 400 mg capsule 400 mg PO DAILY@09/11/21 11/21/21 History pantoprazole 40 mg tablet,delayed 40 mg PO BID@,09/11/21 11/21/21 History release Allergies/Adverse Reactions Allergy/AdvReac Type Severity Reaction Status Date / Time atorvastatin [From Lipitor] Allergy ADR-Cramping Verified 11/24/21 08:06 of the Muscles hydrocodone Allergy abdominal Verified 11/24/21 08:06 pain Sjsustl-WKG-[id number] Reductase Allergy ADR-Cramping Verified 11/24/21 08:06 Inhibitor of the Muscles Current Medications: Generic Name Dose Route Start Last Admin Trade Name Freq PRN Reason Stop Dose Admin Sodium Chloride 1,000 mls @ 30 mls/hr 11/24/21 07:00 11/24/21 07:18 Sodium Chloride 0.9% IV 11/25/21 06:59 30 mls/hr .Q24H JARRELL Administration Pertinent History/Comorbid Conditions* Medical History (Updated 09/12/21 @ 00:01 by ) AAA (abdominal aortic aneurysm) followed by Dr Ferrell, 4.8 cm 08/27/21 Chest pain Chronic sinusitis Cyst of right kidney Gastritis and duodenitis GERD (gastroesophageal reflux disease) HTN (hypertension) Hyperlipidemia Peripheral neuropathy Surgical History (Updated 08/27/21 @ 10:56 by Malathi Gusman MD) History of back surgery History of colonoscopy History of esophagogastroduodenoscopy (EGD) 2019 History of sinus surgery Hx of appendectomy Hx of cholecystectomy Hx of knee surgery Hx of neck surgery Family History (Updated 06/01/20 @ 14:04 by Birgit Mulligan RN) Diabetes CAD (coronary artery disease) Hyperlipidemia Lung disease Cancer Hypertension Stroke Denies family history of Clotting disorder Dementia Chronic kidney disease (CKD) Anesthesia complication Bleeding disorder Family history of premature coronary artery disease Social History Smoking and tobacco status: current every day smoker pipe Pipe Details: more than 10 years Second hand smoke exposure: Yes Alcohol intake: former Pertinent Exam Findings alert, oriented x 3, regular rate & rhythm and procedure specific exam findings (Abdominal exam nontender nondistended soft) Recommendations Surgery/Procedure today (EGD with possible biopsy) Coding Level of Care Code Acute Energy Project Manager for Una Klein
[2021-11-24 09:01] VITALS: BP 118/72; PULSE 64; RESP 20; TEMP 36.1; O2SAT 93
[2021-11-24 09:15] VITALS: BP 115/70; PULSE 60; RESP 16; O2SAT 96
--- NOTE | 2021-11-24 13:29 | ANE.PACU2 ---
Inpatient post-anesthesia follow up: Airway intact: Yes Vital signs: Temperature 97 F Pulse Rate 60 Respiratory Rate 16 Blood Pressure 115/70 Pulse Oximetry 96 Oxygen Delivery Me thod Room Air Oxygen Flow Rate Fraction of Inspir ed Oxygen Hydration adequate: Yes Nausea and vomiting: No Pain level: 1 Mental status: Baseline
== END 2021-11-24 09:26 | disposition home or self-care (01) ==
PROVIDERS: PCP Nurse Practitioner Family; Visit Provider Surgery
PROC: 0DJ08ZZ Inspection of Upper Intestinal Tract, Via Natural or Artificial Opening Endoscopic (ICD-10-PCS; CPT 43235; principal; 2021-11-24 08:15)
DX: K21.9 Gastro-esophageal reflux disease without esophagitis (principal); I10 Essential (primary) hypertension; E78.5 Hyperlipidemia, unspecified; F17.290 Nicotine dependence, other tobacco product, uncomplicated; K29.70 Gastritis, unspecified, without bleeding
CPT/HCPCS: 43239; 88305; J7030

== ENCOUNTER → 2021-11-27 14:33 | Outpatient (BNVA) | payer MEDICARE, SELFPAY | PROVIDERS: PCP Nurse Practitioner Family; Visit Provider Nurse Practitioner Family | DX: M54.9 Dorsalgia, unspecified (principal) | CPT/HCPCS: 81000 ==

== ENCOUNTER 2021-12-13 12:12 | Outpatient (CLI) | payer MEDICARE, SELFPAY ==
--- NOTE | 2021-12-13 13:00 | USCV_ITS ---
Cong Nath Age: 76 Gender: M : 1945 Exam Date: 12/13/2021 12:23 Ordering Phys: Dima Richards MD (Andy) ([email or web address]) Technologist: CT [place] [facility] [facility] [place]: dst aaa HISTORY: Diameter (cm) AP x Transverse x Length Velocity (cm/s) Waveform Prox Aorta: 2.85 x 2.92 x 73.10 Mid Aorta: 1.98 x 2.09 x 102.90 Distal Aorta: 4.69 x 4.95 x 111.20 Right Iliac Prox: 2.00 x 2.00 x 139.60 Left Iliac Prox: 1.07 x 1.21 x 115.40 Stent Prox Landing x x Aneurysmal Sac Max x x Lt Lat Sac Dim Rt Lat Sac Dim Stent Dist Landing x x Right Iliac Stent x x Left Iliac Stent x x Right Renal Art Left Renal Art FINDINGS: dst aaa with thrombus present CONCLUSIONS Distal fusiform AAA measuring 4.6 x 4.9 cm with peripheral mural thrombus is stable compared to 2020. This extends over approximately 6cm unchanged Proximal iliac arteries are patent. Heron Judd MD (Electronically Signed) Final Date: 13 December 2021 16:27 S
== END 2021-12-13 12:13 | disposition home or self-care (01) ==
PROVIDERS: PCP Nurse Practitioner Family; Visit Provider Thoracic Surgery (Cardiothoracic Vascular Surgery)
DX: I71.40 Abdominal aortic aneurysm, without rupture, unspecified (principal); I51.3 Intracardiac thrombosis, not elsewhere classified; I74.09 Other arterial embolism and thrombosis of abdominal aorta
CPT/HCPCS: 93978

== ENCOUNTER → 2021-12-14 16:48 | Outpatient (BNVA) | payer MEDICARE, SELFPAY | PROVIDERS: PCP Nurse Practitioner Family; Visit Provider Surgery | DX: K21.9 Gastro-esophageal reflux disease without esophagitis (principal) | CPT/HCPCS: 99212 ==

== ENCOUNTER → 2022-02-14 16:29 | Outpatient (BNVA) | payer SELFPAY | PROVIDERS: PCP Nurse Practitioner Family; Visit Provider Nurse Practitioner Family | DX: R35.0 Frequency of micturition (principal) | CPT/HCPCS: 81000 ==

== ENCOUNTER → 2022-02-22 08:17 | Outpatient (BNVA) | payer MEDICARE, SELFPAY | PROVIDERS: PCP Nurse Practitioner Family; Visit Provider Nurse Practitioner Family | DX: I10 Essential (primary) hypertension (principal) | CPT/HCPCS: 80053; 80061 ==

== ENCOUNTER 2022-03-02 09:41 | Outpatient (CLI) | payer MEDICARE, SELFPAY ==
--- NOTE | 2022-03-02 09:49 | XR_ITS ---
WS: [id number] XR cervical spine 3V* [id number] REASON FOR EXAM: M54.12 - Radiculopathy, cervical region FINDINGS: Straightening of the normal lordosis of the cervical spine. Normal odontoid. No significant abnormality of vertebral C2-C4. Anterior plate and screw fixation C5-C7 with interbody fusion devices at C5-C6 and C6-C7. C5-C7 appea r fused. Significant narrowing of the C3-C4 disc space with anterior and uncinate osteophytosis. Mild narrowing of the C4-C5 disc space with moderate anterior and uncinate osteophytosis. 1 to 2 mm mm of anterolisthesis of C4 in relation to C3. Moderate degenerative arthropathy changes in the facet joints C2-C7. Moderate left carotid artery calcified plaque. XR/XR cervical spine 3V* [id number] IMPRESSION: Postoperative cervical spine with degenerative spondylosis as above. Moderate left carotid artery calcified plaque.
--- NOTE | 2022-03-02 09:49 | XR_ITS ---
WS: [id number] XR lumbar spine 2-3V* [id number] REASON FOR EXAM: M54.50 - Low back pain, unspecified FINDINGS: Straightening of the normal lordosis of the lumbar spine. No significant focal lumbar vertebral body abnormality. Significant narrowing of the L4-L5 and L5-S1 disc spaces with endplate sclerosis and osteophytosis. 2 mm of anterolisthesis of L3 in relation to L4 and L2. Significant degenerative arthropathy in the facet joints L3-S1. Fusiform abdominal aortic aneurysm 5.6 cm in transverse and AP diameter. 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 XR/XR lumbar spine 2-3V* [id number] IMPRESSION: Degenerative spondylosis of the lumbar spine as described above. Abdominal aortic aneurysm as above.
== END 2022-03-02 09:42 | disposition home or self-care (01) ==
LOC: RAD 09:41
PROVIDERS: PCP Nurse Practitioner Family; Visit Provider Nurse Practitioner Family
DX: I71.40 Abdominal aortic aneurysm, without rupture, unspecified (principal); I10 Essential (primary) hypertension; I48.91 Unspecified atrial fibrillation; Z72.0 Tobacco use
CPT/HCPCS: 72040; 72100; 99214

== ENCOUNTER 2022-04-26 06:04 | Outpatient (CLI) | payer MEDICARE, SELFPAY ==
--- NOTE | 2022-04-26 06:19 | USCV_ITS ---
Cong Nath Age: 76 Gender: M : 1945 Exam Date: 04/26/2022 06:26 Ordering Phys: Dima Richards MD (Andy) ([email or web address] [place]) Technologist: MARTINEZ [place] [facility] [place]: KNOWN DIST AAA HISTORY: Diameter (cm) AP x Transverse x Length Velocity (cm/s) Waveform Prox Aorta: 2.76 x 2.50 x 60.40 Triphasic Mid Aorta: 2.38 x 2.39 x 69.60 Triphasic Distal Aorta: 4.61 x 4.92 x 43.00 Triphasic Right Iliac Prox: 1.21 x 1.14 x Triphasic Left Iliac Prox: 1.45 x 1.35 x 94.20 Triphasic Stent Prox Landing x x Aneurysmal Sac Max x x Lt Lat Sac Dim Rt Lat Sac Dim Stent Dist Landing x x Right Iliac Stent x x Left Iliac Stent x x Right Renal Art Left Renal Art FINDINGS: Comparison:. 12/13/21. Atherosclerotic plaque is noted in the abdominal aorta. A fusiform abdominal aortic aneurysm is noted with a maximal diameter of 4.9 cm. Minimal increase in diameter. Moderate thrombus in the aneurysm sac. No evidence of periaortic fluid is detected. There is evidence of atherosclerotic plaque no significan stenosis in the right common iliac artery. There is evidence of atherosclerotic plaque no significan stenosis in the left common iliac artery. CONCLUSIONS Stable AAA since 12/13/21. Minimal increase in diameter. Intraluminal thrombus again noted. Dr. Dottie Lazaro DO (Electronically Signed) Final Date: 26 April 2022 07:36 S
== END 2022-04-26 06:05 | disposition home or self-care (01) ==
LOC: RAD 06:05
PROVIDERS: PCP Nurse Practitioner Family; Visit Provider Internal Medicine
DX: I71.40 Abdominal aortic aneurysm, without rupture, unspecified (principal)
CPT/HCPCS: 93978

== ENCOUNTER 2022-06-11 09:52 | Emergency (ER) | payer MEDICARE, SELFPAY ==
[2022-06-11] VITALS (8 sets, daily range): BP systolic 128–159; BP diastolic 84–106; PULSE 56–68; RESP 18–29; TEMP 36.6; O2SAT 94–97; BMI 24.4
--- NOTE | 2022-06-11 09:55 | W.ED.UPPEXIN ---
HPI - Extremity Injury (Upper) General: Chief Complaint: Neuro Symptoms/Deficit Stated Complaint: loss of mobility right arm Time Seen by Provider: 06/11/22 09:55 Source: patient Mode of arrival: ambulatory History of Present Illness: 76-year-old male presents emergency room progressive weakness and loss of sensation in the right arm. It happened over the last 2 days. He is unable to move the third through fifth fingers on the arm and has decreased sensation in the forearm pain radiating from the neck all the way down to the fingertips. No recent trauma he has had problems with his neck in the past. He is on Eliquis for atrial fibrillation no other focal deficits noted. MD complaint: injury to: right Onset (ago): day(s) (2) Other Extremity Injury: Right: fingers Other injuries: none Handedness: right Relieving factors: none Exacerbating factors: none Associated symptoms: Reports neck pain, numbness and weakness in extremities; Denies crepitus or foreign body sensation Review of Systems Const: Denies: fever(s), chills, body aches, change in appetite, fatigue or malaise ENMT: Denies: throat pain, ear or mastoid pain, nasal discharge or nasal congestion Card: Denies: chest pain, edema, dyspnea on exertion or orthopnea Resp: Denies: dyspnea, productive cough or non-productive cough GI: Denies: abdominal pain, nausea, vomiting, hematemesis, coffee ground emesis, diarrhea, constipation, bloating, hematochezia or melena : Denies: flank pain, dysuria, urinary frequency or urinary urgency Musc: Reports: neck pain Skin/Breast: Denies: rash or pruritus Neuro: Reports: weakness in extremities PFSH ED PFSH: Medical History AAA (abdominal aortic aneurysm) followed by Dr Ferrell, 4.8 cm 08/27/21 Chest pain Chronic sinusitis Cyst of right kidney Gastritis and duodenitis GERD (gastroesophageal reflux disease) HTN (hypertension) Hyperlipidemia Peripheral neuropathy Surgical History History of back surgery History of colonoscopy History of esophagogastroduodenoscopy (EGD) 2020 History of sinus surgery Hx of appendectomy Hx of cholecystectomy Hx of knee surgery Hx of neck surgery Family History Other CAD (coronary artery disease) Cancer Diabetes Hyperlipidemia Hypertension Lung disease Stroke Denies family history of Clotting disorder Dementia Chronic kidney disease (CKD) Anesthesia complication Bleeding disorder Family history of premature coronary artery disease Social History Smoking and tobacco status: current every day smoker pipe Pipe Details: more than 10 years Second hand smoke exposure: Yes Alcohol intake: former Substance/Drug Use: never Adopted: No Lives independently: Yes Household members: significant other Housing: House Physical Exam Const: GENERAL APPEARANCE: cooperative and comfortable ORIENTATION/CONSCIOUSNESS: Yes awake, Yes oriented to person, Yes oriented to place and Yes oriented to time HENMT: COMMON NORMALS: normocephalic, atraumatic and hearing grossly normal bilaterally HEAD & SCALP: normocephalic and atraumatic Resp: COMMON NORMALS: normal respiratory effort, No retractions, No use of accessory muscles and clear to auscultation bilaterally AUSCULTATION: clear to auscultation bilaterally Cardio: COMMON NORMALS: regular rate, regular rhythm and No murmurs present (Cardio) RATE: regular rate RHYTHM: regular rhythm GI: COMMON NORMALS: Soft to palpation and No hepatosplenomegaly present AUSCULTATION: Yes normoactive bowel sounds PALPATION: Yes Soft to palpation, No Tenderness to palpation present (GI), No Guarding due to palpation present (GI) and Yes No hepatosplenomegaly present Extremity: COMMON NORMALS: normal to inspection, capillary refill normal, no clubbing, cyanosis or edema, no calf tenderness and no pedal edema Neuro: SENSORIUM/ORIENTATION: Yes oriented to person, Yes oriented to place and Yes oriented to time Skin: COMMON NORMALS: no rashes or lesions noted GENERAL SKIN EXAM: no rashes or lesions noted Course Vital Signs: Vital signs: Vital Signs Temperature 97.9 F 06/11/22 09:58 Pulse Rate 61 06/11/22 12:30 Respiratory Rate 18 06/11/22 12:30 Blood Pressure 128/84 06/11/22 12:45 Pulse Oximetry 94 06/11/22 12:30 Oxygen Delivery Me thod Room Air 06/11/22 11:22 MDM - Extremity Injury (Upper) Medical Decision Making Patient has complex problem 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 His MRI of the C-spine for acute neural impingement loss of function was negative for any significant nerve impingement. I discussed Dr. Plaza neurology on-call as she feels its a mononeuritis multiplex. She came down and see the patient see her consultation note she recommends discharge home no medications this time she is making arrangements for an outpatient nerve conduction. Discussed with the patient to be discharged home. Medical Records I reviewed the patient's medical records. Lab Data I reviewed the patient's lab results. 06/11/22 10:20 06/11/22 10:20 Radiology Impressions Cervical Spine CT 06/11/22 10:30 IMPRESSION: 1. Status post anterior cervical fusion at C5-C7 with ankylosis across the interbody spacers at C5-6 and C6-7. 2. Severe RIGHT with moderate LEFT foraminal stenosis at C3-4 with moderate facet joint arthritis. 3. Moderate LEFT foraminal stenosis at C4-5 due to osteophytic ridging. 4. Moderate bilateral foraminal stenosis, RIGHT greater than LEFT at C5-6. 5. Mild facet joint arthritis and mild LEFT foraminal stenosis at C6-7. 6. Severe RIGHT and mild LEFT facet joint arthritis at C7-T1. Head CT 06/11/22 10:33 IMPRESSION: 1. No acute intracranial hemorrhage or edema. 2. Mild atrophy and small vessel ischemic disease. Cervical Spine MRI 06/11/22 11:27 IMPRESSION: 1. Straightening of the normal cervical lordosis. Cord signal is normal. No high-grade central canal stenosis. 2. Tiny central disc protrusion C3-C4 slight contact of the cervical cord. No significant central canal stenosis. 3. Moderate bilateral bony foraminal narrowing C3-C4 with moderate facet arthropathy. 4. Moderate LEFT C4-C5 bony foraminal narrowing with moderate to advanced facet arthropathy at this level and small facet effusions likely degenerative. 5. Mild RIGHT C5-C6 and moderate LEFT C6-C7 bony foraminal narrowing. 6. Mild bilateral C7-T1 bony foraminal narrowing. Laboratory Results WBC 7.8 10^3/uL (4.0-10.0) 06/11/22 10:20 RBC 4.95 10^6/uL (4.1-5.3) 06/11/22 10:20 Hgb 14.3 g/dL (11.7-16.6) 06/11/22 10:20 Hct 43.9 % (42.0-52.0) 06/11/22 10:20 MCV 88.7 fl (80-94) 06/11/22 10:20 MCH 28.9 pg (28.0-34.0) 06/11/22 10:20 MCHC 32.6 g/dL (30.0-36.0) 06/11/22 10:20 RDW 13.5 % (12.1-15.1) 06/11/22 10:20 Plt Count 180 10^3/cmm (130-400) 06/11/22 10:20 MPV 12.0 fL (7.4-10.4) H 06/11/22 10:20 Neut % (Auto) 71.9 % 06/11/22 10:20 Lymph % (Auto) 18.2 % 06/11/22 10:20 [place] % (Auto) 7.2 % 06/11/22 10:20 Eos % (Auto) 1.7 % 06/11/22 10:20 Baso % (Auto) 0.6 % 06/11/22 10:20 Neut # (Auto) 5.62 10^3/uL (1.8-7.7) 06/11/22 10:20 Lymph # (Auto) 1.4 10^3/uL (0.8-4.8) 06/11/22 10:20 [place] # (Auto) 0.6 10^3/uL (0.2-0.9) 06/11/22 10:20 Eos # (Auto) 0.1 10^3/uL (0.0-0.8) 06/11/22 10:20 Baso # (Auto) 0.1 10^3/uL (0.0-0.1) 06/11/22 10:20 Nucleated RBC % (auto) 0 % 06/11/22 10:20 Nucleated RBCs # 0.0 /100WBC 06/11/22 10:20 ESR 12 mm/hr (0-10) H 06/11/22 10:20 Sodium 138 mmol/L (136-145) 06/11/22 10:20 Potassium 4.4 mmol/L (3.5-5.1) 06/11/22 10:20 Chloride 105 mmol/L (98-107) 06/11/22 10:20 Carbon Dioxide 23 mmol/L (22-29) 06/11/22 10:20 Anion Gap 14.4 (5-19) 06/11/22 10:20 BUN 14 mg/dL (8-23) 06/11/22 10:20 Creatinine 1.2 mg/dL (0.7-1.2) 06/11/22 10:20 GFR Calculation Not Reportable 06/11/22 10:20 Glucose 90 mg/dL (65-115) 06/11/22 10:20 Calculated Osmolality 286 mOsm/kg (285-295) 06/11/22 10:20 Calcium 9.5 mg/dL (8.5-10.5) 06/11/22 10:20 Total Bilirubin 0.3 mg/dL (0.15-1.2) 06/11/22 10:20 AST 22 U/L (0-40) 06/11/22 10:20 ALT 17 U/L (0-41) 06/11/22 10:20 Alkaline Phosphatase 54 U/L (40-130) 06/11/22 10:20 Total Protein 7.0 g/dL (6.6-8.7) 06/11/22 10:20 Albumin 4.4 g/dL (3.5-5.2) 06/11/22 10:20 Globulin 2.6 g/dL (1.3-4.6) 06/11/22 10:20 TSH 0.91 uIU/mL (0.27-4.20) 06/11/22 10:20 Discharge Plan Discharge Patient Disposition: Home Clinical Impression: Mononeuritis multiplex Condition: Stable Prescriptions: No Action Eliquis 5 mg tablet 5 mg PO BID@ Qty: 180 3RF Hold Instructions: Resume on 11/28/21. gabapentin 400 mg capsule See Rx Instructions .ROUTE .COMPLEX Qty: 90 0RF Dose Instruction: Take 1 capsule by mouth once daily Rx Instructions: Take 1 capsule by mouth once daily fenofibrate nanocrystallized 145 mg tablet See Rx Instructions .ROUTE .COMPLEX Qty: 90 0RF Dose Instruction: TAKE 1 TABLET BY MOUTH ONCE DAILY AT 1800 Rx Instructions: TAKE 1 TABLET BY MOUTH ONCE DAILY AT 1800 pantoprazole 40 mg tablet,delayed release (DR/EC) See Rx Instructions .ROUTE .COMPLEX Qty: 90 0RF Dose Instruction: Take 1 tablet by mouth once daily Rx Instructions: Take 1 tablet by mouth once daily lisinopril 10 mg tablet 10 mg PO BID Discharge Orders: Discharge ED (Routine); Ordered 06/11/22 Ordered By: Edgar Nair Referrals: Gely Espinosa FNP [Primary Care Provider] - Discharge Diet: Usual diet Discharge Activity: Limit activity as instructed Patient Instructions: Opioid Safety, Pain Management Activity Restrictions/Additional Instructions: You were seen today for weakness and loss of function in her right hand. After discussion with the neurologist and reviewing her MRI there is no sign of nerve impingement at the neck. There is concern because of a previous nerve study you had done several years ago showing a demyelinating disease. Did discuss with the neurologist on-call they will call you to get an appointment within the next day or 2 and set up a repeat nerve conduction studies. They do not recommend any treatment being initiated at this time. They will discuss potential treatments when they see you. If you have worsening symptoms return. Coding Level of Care Code ED Flat Folding Machine Operator for Una Klein
[2022-06-11 10:26] LABS: Basophils # 0.1 10^3/uL (0.0-0.1); Basophils % 0.6 %; Eosinophils # 0.1 10^3/uL (0.0-0.8); Eosinophils % 1.7 %; Hematocrit 43.9 % (42.0-52.0); Hemoglobin 14.3 g/dL (11.7-16.6); Lymphocytes # 1.4 10^3/uL (0.8-4.8); Lymphocytes % 18.2 %; Mean Corpuscular HGB Conc 32.6 g/dL (30.0-36.0); Mean Corpuscular Hemoglobin 28.9 pg (28.0-34.0); Mean Corpuscular Volume 88.7 fl (80-94); Monocytes # 0.6 10^3/uL (0.2-0.9); Monocytes % 7.2 %; Neutrophils # 5.62 10^3/uL (1.8-7.7); Neutrophils % 71.9 %; Nucleated Red Blood Cells % 0 %; Platelet Count 180 10^3/cmm (130-400); Red Blood Count 4.95 10^6/uL (4.1-5.3); Red Cell Distribution Width 13.5 % (12.1-15.1); White Blood Count 7.8 10^3/uL (4.0-10.0)
--- NOTE | 2022-06-11 10:30 | CT_ITS ---
WS: [id number] CT CERVICAL SPINE HISTORY: neck pain w L arm radiculopathy TECHNIQUE: Contiguous 2.0 mm axial imaging performed through the entire cervical spine. Sagittal and coronal reformats also performed. All CT scans at [facility] use at least one of these dose o ptimization techniques: automated exposure control; mA and/or kV adjustment per patient size (include s targeted exams where dose is matched to clinical indication); or iterative reconstruction. DLP: 1381.20 mGy.cm COMPARISON: None available. Very slight straightening of the normal cervical lordosis. Anterior cervical fusion from C5 to C7. In terbody spacers with complete fusion at C5-6 and C6-7. Disc spaces are narrowed. Severe disc space na rrowing at C3-4. Marked narrowing of the predental space. C2-C3: Mild osteophytic ridging. Small central disc protrusion. Mild LEFT foraminal narrowing due to vertebral body osteophyte. Bilateral facet joint arthritis, LEFT greater than RIGHT. C3-C4: Mild diffuse osteophytic ridging with moderate bilateral facet joint arthritis, RIGHT greater than LEFT. Mild central with severe RIGHT and moderate LEFT foraminal stenosis. C4-C5: Mild osteophytic ridging asymmetric to the LEFT causing moderate LEFT foraminal stenosis. Mode rate bilateral facet joint hypertrophy. C5-C6: Mild osteophytic ridging with encroachment upon the ventral thecal sac. Moderate bilateral for aminal stenosis, RIGHT greater than LEFT. Mild central stenosis. C6-C7: Diffuse osteophytic ridging with mild encroachment upon the thecal sac and LEFT foramen. Mild bilateral facet joint arthritis. C7-T1: No stenosis. Severe RIGHT and mild LEFT facet joint arthritis. Lung apices are clear. Cervical carotid artery calcification. CT/CT cervical spin wo con* [id number] IMPRESSION: 1. Status post anterior cervical fusion at C5-C7 with ankylosis across the int erbody spacers at C5-6 and C6-7. 2. Severe RIGHT with moderate LEFT foraminal stenosis at C3-4 with moderate fa cet joint arthritis. 3. Moderate LEFT foraminal stenosis at C4-5 due to osteophytic ridging. 4. Moderate bilateral foraminal stenosis, RIGHT greater than LEFT at C5-6. 5. Mild facet joint arthritis and mild LEFT foraminal stenosis at C6-7. 6. Severe RIGHT and mild LEFT facet joint arthritis at C7-T1.
--- NOTE | 2022-06-11 10:33 | CT_ITS ---
WS: [id number] CT HEAD NONCONTRAST HISTORY: L arm weakness TECHNIQUE: Contiguous axial imaging performed through the brain in 2.5 mm imaging. Bone and soft tiss ue windows. Sagittal and coronal reformats reviewed. All CT scans at [facility] use at least one of these dose optimization techniques: automated exposure control; mA and/or kV adjustment per pa tient size (includes targeted exams where dose is matched to clinical indication); or iterative recon struction. DLP: 1381.20 mGy.cm COMPARISON: None available. No acute intracranial hemorrhage, midline shift or mass effect. Mild atrophy and mild small vessel ischemic disease. No prior infarcts. Ventricles: Ventricles are asymmetric with the RIGHT RIGHT being smaller which is a normal variant. No inferior displacement of cerebellar tonsils. Clivus and pituitary gland are negative. Paranasal sinuses: As visualized are clear. Mastoid air cells: Well pneumatized. Calvarium and scalp: No fracture. Occipital lucencies are typical for benign calvarial lesions. CT/CT head wo con* [id number] IMPRESSION: 1. No acute intracranial hemorrhage or edema. 2. Mild atrophy and small vessel ischemic disease.
[2022-06-11 10:46] LABS: Alanine Aminotransferase 17 U/L (0-41); Albumin Level 4.4 g/dL (3.5-5.2); Alkaline Phosphatase 54 U/L (40-130); Anion Gap 14.4 (5-19); Aspartate Amino Transferase 22 U/L (0-40); Blood Urea Nitrogen 14 mg/dL (8-23); Calcium 9.5 mg/dL (8.5-10.5); Carbon Dioxide 23 mmol/L (22-29); Chloride 105 mmol/L (98-107); Globulin 2.6 g/dL (1.3-4.6); Glucose 90 mg/dL (65-115); Osmolality Calculated 286 mOsm/kg (285-295); Potassium 4.4 mmol/L (3.5-5.1); Sodium 138 mmol/L (136-145); Total Bilirubin 0.3 mg/dL (0.15-1.2)
[2022-06-11] MEDS: orphenadrine 30 mg/mL Inj 2 mL 60 MG IVP (11:24)
[2022-06-11] MEDS: dexamethasone 10 mg/mL INJ IVP (11:24)
--- NOTE | 2022-06-11 11:27 | MR_ITS ---
WS: [id number] MRI CERVICAL SPINE NONCONTRAST TECHNIQUE: Sagittal T1, T2 and STIR imaging. Axial T2, gradient, and fiesta imaging. CLINICAL INFORMATION: Right arm radiculopathy loss of function COMPARISON: MRI [address] June 11, 2022 FINDINGS: Straightening of the normal cervical lordosis. Prior postoperative changes ACDF C5-C7. Interbody fusi on appears solid. No high-grade central canal stenosis. Cord signal is normal. C2-C3: No significant disc bulging. Mild facet arthropathy. Mild RIGHT and no significant LEFT forami nal narrowing. Spinal canal is patent. C3-C4: Disc osteophyte complex with endplate ridging. Slight effacement of ventral thecal sac. Modera te facet arthropathy. Moderate bilateral bony foraminal narrowing. Spinal canal is patent. C4-C5: Disc osteophyte complex with endplate ridging. Tiny central protrusion. Slight contact of the cervical cord. Spinal canal is patent. Moderate RIGHT and mild LEFT bony foraminal narrowing. Moderat e to advanced facet arthropathy with slight facet edema. C5-C6: Postoperative changes ACDF. Spinal canal is patent. Mild RIGHT and no significant LEFT foramin al narrowing. Spinal canal is patent. C6-C7: ACDF. Osteophytic ridging. Moderate LEFT and no significant RIGHT foraminal narrowing. Spinal canal is patent. Mild facet arthropathy. C7-T1: No significant disc bulging. Mild bilateral foraminal narrowing. Moderate facet arthropathy. S spencer canal is patent Visualized brain stem structures: Normal. Prevertebral soft tissues: Normal. Incidental arachnoid granulations in the posterior fossa. MR/MR cervical spin wo con* [id number] IMPRESSION: 1. Straightening of the normal cervical lordosis. Cord signal is normal. No hi gh-grade central canal stenosis. 2. Tiny central disc protrusion C3-C4 slight contact of the cervical cord. No significant central canal stenosis. 3. Moderate bilateral bony foraminal narrowing C3-C4 with moderate facet arthr opathy. 4. Moderate LEFT C4-C5 bony foraminal narrowing with moderate to advanced face t arthropathy at this level and small facet effusions likely degenerative. 5. Mild RIGHT C5-C6 and moderate LEFT C6-C7 bony foraminal narrowing. 6. Mild bilateral C7-T1 bony foraminal narrowing.
[2022-06-11 14:53] LABS: Erythrocyte Sedimentation Rate 12 mm/hr (0-10)
--- NOTE | 2022-06-11 15:03 | P.CONIM_ITS ---
Providers/Reason For Consult Consulting Physician/Specialty*: Dr. Edgar Raya Reason for Consult*: Complex findings in the right arm of questionable origin, subacute onset Primary Care Provider: YOAV Johnston History of Present Illness History of Present Illness Cong Nath is a 76 year old male who presented to the emergency room today because of his right arm is not moving properly. The problem began 3 days ago a nd gradually progressed. He noticed on Saturday that he had to use the left arm to use his hammer or his nail gun. 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 He has an aching pain that starts in the elbow and radiates to the neck. He feels numb throughout the right arm. He was sent here for nerve conduction studies 2 years ago and says that his legs have been numb for a long time. He has some impairment of balance. He has severe demyelinating polyneuropathy by nerve conduction studies performed in my office 2 years ago, but I have never seen him. He is not diabetic. He has had cervical fusion in the past and so there was significant concern for his cervical spine but MRI scan does not show anything compressive. He received steroids in the ER from Dr. Raya with some degree of pain relief. Review of Systems Const: Denies: fever(s), chills or body aches Eyes: Denies: change in vision or blurry vision ENMT: Denies: hoarseness or mouth pain Card: Denies: chest pain Resp: Denies: dyspnea or wheezing GI: Denies: abdominal pain, nausea or vomiting Musc: Reports: neck pain and extremity pain; Denies: extremity swelling Skin/Breast: Denies: rash or pruritus Neuro: Reports: numbness in extremities and weakness in extremities; Denies: headache(s), lack of coordination, difficulty walking or dizziness Psych: Denies: anxiety or depression Endo: Denies: polyuria All/Imm: Denies: urticaria Medications/Allergies Home Medications Medication Instructions Recorded Confirmed Last Taken Type apixaban 5 mg tablet (Eliquis) 5 mg PO BID@ #180 tabs 10/06/21 06/11/22 06/11/22 Rx pantoprazole 40 mg tablet,delayed See Rx Instructions .Route 04/06/22 06/11/22 06/11/22 Rx release .COMPLEX #90 tabs fenofibrate nanocrystallized 145 See Rx Instructions .Route 06/12/22 Unknown Rx mg tablet .COMPLEX #90 tabs gabapentin 400 mg capsule See Rx Instructions .Route 06/12/22 Unknown Rx .COMPLEX #90 caps lisinopril 10 mg tablet 10 mg PO BID #180 tabs 06/12/22 Unknown Rx Allergies Allergy/AdvReac Type Severity Reaction Status Date / Time atorvastatin [From Lipitor] Allergy ADR-Cramping Verified 05/04/22 09:19 of the Muscles hydrocodone Allergy abdominal Verified 05/04/22 09:19 pain Jysfhgi-SSF-IkN Reductase Allergy ADR-Cramping Verified 05/04/22 09:19 Inhibitor of the Muscles PFSH Acute PFSH: Medical History AAA (abdominal aortic aneurysm) followed by Dr Ferrell, 4.8 cm 08/27/21 Chest pain Chronic sinusitis Cyst of right kidney Gastritis and duodenitis GERD (gastroesophageal reflux disease) HTN (hypertension) Hyperlipidemia Peripheral neuropathy Surgical History History of back surgery History of colonoscopy History of esophagogastroduodenoscopy (EGD) 2020 History of sinus surgery Hx of appendectomy Hx of cholecystectomy Hx of knee surgery Hx of neck surgery Family History Other CAD (coronary artery disease) Cancer Diabetes Hyperlipidemia Hypertension Lung disease Stroke Denies family history of Clotting disorder Dementia Chronic kidney disease (CKD) Anesthesia complication Bleeding disorder Family history of premature coronary artery disease Social History Smoking and tobacco status: current every day smoker pipe Pipe Details: more than 10 years Second hand smoke exposure: Yes Alcohol intake: former Substance/Drug Use: never Adopted: No Lives independently: Yes Household members: significant other Housing: House Vitals/I&O/Wt Last Vital Signs Temp 97.9 F 06/11/22 09:58 Pulse 58 L 06/11/22 12:00 Resp 29 H 06/11/22 12:00 BP 137/106 06/11/22 12:00 Pulse Ox 96 06/11/22 12:00 O2 Del Method Room Air 06/11/22 11:22 Weight last 48 hrs Weight 185 lb Physical Exam Narrative: GENERAL: The patient was [well-nourished] with a[healthy appearance] and [appropriately groomed]. He looks far younger than his age MENTAL STATUS: [Orientation was full to 10 of 10 questions of orientation]. [Speech was fluent without word hesitation]. [No difficulty following a complex command]. [The affect was euthymic]. CRANIAL NERVES: Visual acuity was intact to reading small print. Visual dan were full to confrontation, direct and consensual. Extraocular movements were full without nystagmus. Both slow pursuit and saccadic eye movements were normal. PERRLA. Face was symmetric at rest and with grimace. [Facial sensation was intact in all three distributions of the fifth cranial nerve bilaterally to touch]. Hearing was intact to soft spoken voice.. Tongue and palate were midline at rest and with protrusion of the tongue and elevation of the palate. Shoulders were symmetric at rest and with shoulder shrug. MOTOR: He has weakness of therapy aide. He has decreased flexion especially of the fourth and fifth fingers of the left hand. He gives at least 4 out of 5 strength in finger and wrist extensors, abductor pollicis brevis, pronation and supination of the forearm. He has 5 out of 5 strength in left deltoid but 4 out of 5 on the right, complaining of pain in the neck. I could not appreciate any weakness in triceps. SENSATION: He is numb to pin all the way to the shoulder in the right arm. COORDINATION: [Bolbih-sfrq-akcmro, sqii-[id number]-vuun and rapid alternating movements were performed smoothly without evidence of tremor or ataxia.] Stance was stable with the eyes open, as well as the eyes closed. DEEP TENDON REFLEXES: Reflexes intact in the biceps on both sides and triceps. He is not hyperreflexic in the legs. GAIT: He was able to get up from the stretcher and walk around the room. HEENT: Normocephalic without dysmorphic features. Conjunctivae were not injected and sclerae were nonicteric. NECK: Carotid upstroke was strong bilaterally without bruits. The thyroid was not enlarged and there were no palpable lymph nodes. CHEST: Clear to auscultation. CARDIOVASCULAR: The heart sounds were normal without murmur or gallop. Regular rate and rhythm. EXTREMITIES: There was no edema or cyanosis. The skin was unremarkable. The spine exhibited normal thoracic kyphosis and normal lumbar lordosis without deformities. No pallor in either of the upper limbs. Radial pulses were symmetric. 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 He is not a diabetic. His cervical spine MRI does not show any neural imping ement. He has a history of a demyelinating neuropathy that was evident on nerve conduction studies in July 2020 but he is still ambulatory so this is not CIDP. He can go home today. I have arranged for urgent nerve conduction studies to be performed in my office later this week and I will see him in the office a week from today. I am not restricting his activities. He should have a CT of the chest because he is a smoker and this could potentially be brachial plexopathy. Consult Attestations Medical Necessity Statement: Severe weakness in the right arm Critical Care Time: 40 minutes. 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
[2022-06-11 15:05] LABS: Thyroid Stimulating Hormone 0.91 uIU/mL (0.27-4.20)
--- NOTE | 2022-06-12 13:43 | DCPLANNER ---
senior brand manager had message to schedule an outpatient CT Chest for patient. senior brand manager faxed signed order to centralized scheduling, who will call patient with appointment information.
[2022-06-12 15:50] LABS: Anti-Nuclear Antibody Screen NEGATIVE (NEGATIVE)
[2022-06-14 12:50] LABS: ABNORMAL PROTEIN BAND 1 0.2 g/dL (NONE DETECTED); ALBUMIN 4.4 g/dL (3.8-4.8); ALPHA 1 GLOBULIN 0.4 g/dL (0.2-0.3); ALPHA 2 GLOBULIN 0.8 g/dL (0.5-0.9); BETA 1 GLOBULIN 0.5 g/dL (0.4-0.6); BETA 2 GLOBULIN 0.3 g/dL (0.2-0.5); GAMMA GLOBULIN 0.7 g/dL (0.8-1.7)
== END 2022-06-11 15:37 | disposition home or self-care (01) ==
PROVIDERS: Emergency Provider Family Medicine; PCP Nurse Practitioner Family
DX: G58.7 Mononeuritis multiplex (principal); Z79.01 Long term (current) use of anticoagulants; F17.290 Nicotine dependence, other tobacco product, uncomplicated; I10 Essential (primary) hypertension; E78.5 Hyperlipidemia, unspecified
CPT/HCPCS: 36415; 70450; 72125; 72141; 80053; 84155; 84165; 84443; 85025; 85651; 86038; 96374; 96375; 99285; J1100; J2360

== ENCOUNTER → 2022-06-13 15:48 | Outpatient (BNVA) | payer MEDICARE, SELFPAY | PROVIDERS: PCP Nurse Practitioner Family; Visit Provider Specialist | DX: G56.01 Carpal tunnel syndrome, right upper limb (principal) | CPT/HCPCS: 95910 ==

== ENCOUNTER → 2022-09-11 09:58 | Outpatient (BNVA) | payer MEDICARE, SELFPAY | PROVIDERS: PCP Nurse Practitioner Family; Visit Provider Nurse Practitioner Family | DX: I10 Essential (primary) hypertension (principal); R53.83 Other fatigue; E78.5 Hyperlipidemia, unspecified; Z12.5 Encounter for screening for malignant neoplasm of prostate | CPT/HCPCS: 80061; G0103 ==

== ENCOUNTER → 2022-09-12 08:06 | Outpatient (BNVA) | payer MEDICARE, SELFPAY | PROVIDERS: PCP Nurse Practitioner Family; Visit Provider Nurse Practitioner Family | DX: R19.7 Diarrhea, unspecified (principal) | CPT/HCPCS: 87493; 87506 ==

== ENCOUNTER → 2022-09-18 12:11 | Outpatient (BNVA) | payer MEDICARE, SELFPAY | PROVIDERS: PCP Nurse Practitioner Family; Visit Provider Internal Medicine Cardiovascular Disease | DX: I48.91 Unspecified atrial fibrillation (principal); E78.5 Hyperlipidemia, unspecified; I10 Essential (primary) hypertension; I71.40 Abdominal aortic aneurysm, without rupture, unspecified; M54.9 Dorsalgia, unspecified | CPT/HCPCS: 81000; 99213 ==

== ENCOUNTER 2022-12-03 06:54 | Outpatient (CLI) | payer MEDICARE, SELFPAY ==
--- NOTE | 2022-12-03 07:00 | USCV_ITS ---
Cong Nath Age: 77 Gender: M : 1945 Exam Date: 12/03/2022 07:04 Ordering Phys: Dima Richards MD (Andy) ([email or web address]) Technologist: Exam Location: [facility] [place] [facility] [place] Indication: aaa HISTORY: Diameter (cm) AP x Transverse x Length Velocity (cm/s) Waveform Prox Aorta: 2.38 x 2.39 x 130.30 Biphasic Mid Aorta: 3.54 x 3.58 x 104.00 Biphasic Distal Aorta: 4.58 x 4.22 x 97.00 Biphasic Right Iliac Prox: 1.59 x 1.45 x 148.30 Biphasic Left Iliac Prox: 1.60 x 1.64 x 144.20 Biphasic Stent Prox Landing x x Aneurysmal Sac Max x x Lt Lat Sac Dim Rt Lat Sac Dim Stent Dist Landing x x Right Iliac Stent x x Left Iliac Stent x x Right Renal Art Left Renal Art FINDINGS: Comparison:. 04/26/22 A fusiform abdominal aortic aneurysm is noted with a maximal diameter of 4.6 cm. Thrombus is noted in the aneurysm. There are no findings to suggest rupture of the abdominal aortic aneurysm. Atherosclerotic plaque , no progression . There is evidence of atherosclerotic plaque no significan stenosis in the right common iliac artery. There is evidence of atherosclerotic plaque no significan stenosis in the left common iliac artery. CONCLUSIONS No change seen from prior study. AAA, maximum diameter of 4.[address] Dottie Lazaro DO (Electronically Signed) Final Date: 03 December 2022 12:12 S
== END 2022-12-03 06:55 | disposition home or self-care (01) ==
LOC: RAD 06:54
PROVIDERS: PCP Nurse Practitioner Family; Visit Provider Thoracic Surgery (Cardiothoracic Vascular Surgery)
DX: I71.40 Abdominal aortic aneurysm, without rupture, unspecified (principal)
CPT/HCPCS: 93978

== ENCOUNTER → 2022-12-24 08:23 | Outpatient (BNVA) | payer MEDICARE, SELFPAY | PROVIDERS: PCP Nurse Practitioner Family; Visit Provider Nurse Practitioner Family | DX: I10 Essential (primary) hypertension (principal) | CPT/HCPCS: 80053; 80061 ==

== ENCOUNTER → 2022-12-27 09:45 | Outpatient (BNVA) | payer MEDICARE, SELFPAY | PROVIDERS: PCP Nurse Practitioner Family; Visit Provider Thoracic Surgery (Cardiothoracic Vascular Surgery) | DX: I71.40 Abdominal aortic aneurysm, without rupture, unspecified (principal) | CPT/HCPCS: 99213 ==

== ENCOUNTER 2022-12-31 07:05 | Emergency (ER) | payer MEDICARE, SELFPAY ==
--- NOTE | 2022-12-31 07:09 | ECG_ITS ---
[facility] Test Date: 2022-12-31 Pat Name: Cong Nath Department: Room: Gender: Male Client Retention Specialist: : 1945 Requested By: Edgar Bauer Order Number: [id number] Nisha MD: Saul Winn M.D. Measurements Intervals [place] Rate: 68 P: 53 CO: 142 QRS: -62 QRSD: 106 T: 38 QT: 407 QTc: 434 Interpretive Statements Baseline artifact. SINUS RHYTHM WITH OCCASIONAL SUPRAVENTRICULAR PREMATURE COMPLEXES No significant ST abnormality noted. Compared to ECG 09/11/2021 03:31:44 No significant change. Electronically Signed On 12-31-2022 14:44:25 COLORECTAL SURGEON by Saul Winn M.D. [email or web address]
[2022-12-31 07:11] VITALS: BP 166/110; PULSE 61; RESP 18; TEMP 36.3; O2SAT 91; BMI 25.7
--- NOTE | 2022-12-31 07:13 | XRR_ITS ---
PROCEDURE INFORMATION: Exam: XR Chest Exam date and time: 12/31/2022 7:35 AM Age: 77 years old Clinical indication: Pain; Angina pectoris; Additional info: Chest pain TECHNIQUE: Imaging protocol: Radiologic exam of the chest. Views: 1 view. COMPARISON: CR XR chest 1V portable [id number] 09/10/2021 11:56 PM FINDINGS: Lungs: Unremarkable. No consolidation. Pleural spaces: Unremarkable. No pleural effusion. No pneumothorax. Heart/Mediastinum: Unremarkable. No cardiomegaly. Vasculature: Moderate uncoiling of the thoracic aorta. Bones/joints: Unremarkable. XR/XR chest 1V portable [id number] IMPRESSION: No acute cardiopulmonary disease.
[2022-12-31 07:20] VITALS: BP 160/95; PULSE 64; RESP 18; O2SAT 93
--- NOTE | 2022-12-31 07:21 | W.ED.CHESTPA ---
HPI - Chest Pain General: Chief Complaint: Chest Pain Stated Complaint: high bp, Chest pain Time Seen by Provider: 12/31/22 07:13 Source: patient Mode of arrival: ambulatory History of Present Illness: 77-year-old male presents emergency room concerned about his blood pressure. He has a known history of abdominal aortic aneurysm he seen Dr. Richards in the past. Try to get his blood pressure under control. He tells me he is currently taking 30 mg lisinopril twice a day but is not taking it today he has had some blood pressures in the 200 systolic range. His medicine list lists lisinopril is 20 mg daily. He denies any [id number] medications or stimulants. No recent medication changes. He has also had intermittent episodes of chest pain they are not associate with activity or exertion resolve spontaneously he was seen at other outside emergency room and thought to be GI related he was given some medicine and and his symptoms resolved shortly after he is not sure what the medication was. Is also noticed in his chart to have chronic baseline bradycardia and has a history of atrial fibrillation in the past with cardioversion. No personal history of coronary artery disease. No chest pain at this time. MD complaint: chest pain Relieving factors: nothing Exacerbating factors: nothing Associated symptoms: Deny abdominal pain, diaphoresis, dyspnea, fever(s), leg edema, nausea, palpitations, sense of impending doom, syncope or vomiting Review of Systems Const: Denies: fever(s), chills, fatigue, malaise or diaphoresis Card: Reports: chest pain; Denies: palpitations, irregular heart rhythm, edema or syncope Resp: Denies: dyspnea GI: Denies: abdominal pain, nausea or vomiting : Denies: dysuria, urinary frequency or urinary urgency Musc: Denies: neck pain or back pain Skin/Breast: Denies: rash PFSH ED PFSH: Medical History AAA (abdominal aortic aneurysm) followed by Dr Richards, 4.8 cm 08/27/21 Chest pain Chronic sinusitis Cyst of right kidney Gastritis and duodenitis GERD (gastroesophageal reflux disease) HTN (hypertension) Hyperlipidemia Peripheral neuropathy Surgical History History of back surgery History of colonoscopy History of esophagogastroduodenoscopy (EGD) 2019 History of sinus surgery Hx of appendectomy Hx of cholecystectomy Hx of knee surgery Hx of neck surgery Family History Other CAD (coronary artery disease) Cancer Diabetes Hyperlipidemia Hypertension Lung disease Stroke Denies family history of Clotting disorder Dementia Chronic kidney disease (CKD) Anesthesia complication Bleeding disorder Family history of premature coronary artery disease Social History Smoking and tobacco/nicotine status: current every day tobacco/nicotine user pipe Pipe Details: more than 10 years Quit status (tobacco/nicotine): has quit using Year quit tobacco: 2022 Second hand smoke exposure: Yes Alcohol intake: former Substance/Drug Use: never Adopted: No Lives independently: Yes Household members: significant other Housing: House Physical Exam Const: COMMON NORMALS: no acute distress GENERAL APPEARANCE: cooperative and comfortable ORIENTATION/CONSCIOUSNESS: Yes awake, Yes oriented to person, Yes oriented to place and Yes oriented to time HENMT: COMMON NORMALS: normocephalic, atraumatic and hearing grossly normal bilaterally HEAD & SCALP: normocephalic and atraumatic Resp: COMMON NORMALS: normal respiratory effort, No retractions, No use of accessory muscles and clear to auscultation bilaterally AUSCULTATION: clear to auscultation bilaterally Cardio: COMMON NORMALS: regular rate, regular rhythm and No murmurs present (Cardio) RATE: regular rate RHYTHM: regular rhythm GI: COMMON NORMALS: Soft to palpation and No hepatosplenomegaly present AUSCULTATION: Yes normoactive bowel sounds PALPATION: Yes Soft to palpation, No Tenderness to palpation present (GI), No Guarding due to palpation present (GI) and Yes No hepatosplenomegaly present Extremity: COMMON NORMALS: normal to inspection, capillary refill normal, no clubbing, cyanosis or edema, no calf tenderness and no pedal edema Neuro: SENSORIUM/ORIENTATION: Yes oriented to person, Yes oriented to place and Yes oriented to time Skin: COMMON NORMALS: no rashes or lesions noted GENERAL SKIN EXAM: no rashes or lesions noted Course Vital Signs: Vital signs: Vital Signs Temperature 97.4 F L 12/31/22 07:11 Pulse Rate 63 12/31/22 10:25 Respiratory Rate 18 12/31/22 10:25 Blood Pressure 147/89 12/31/22 10:25 Pulse Oximetry 92 12/31/22 10:25 Oxygen Delivery Me thod Room Air 12/31/22 10:25 MDM - Chest Pain Medical Decision Making EKG and cardiac enzymes unremarkable no acute ST changes noted on EKG troponins trending flat. Patient not having any further chest discomfort. Do not believe he has acute coronary syndrome there is no sign of pulmonary emboli or pneumonia. He does have an aneurysm but is a abdominal aneurysm is not having abdominal pain or pain radiating to the groin. His blood pressure could use better control recommend that he add amlodipine 5 mg daily continue the lisinopril and recheck with his primary care doctor within the next week. Differential Diagnosis Likely acute massive pulmonary embolism and acute myocardial infarction Medical Records I reviewed the patient's medical records. Lab Data I reviewed the patient's lab results. 12/31/22 07:25 12/31/22 07:25 Radiology Impressions Chest X-Ray 12/31/22 07:13 IMPRESSION: No acute cardiopulmonary disease. Laboratory Results WBC 6.58 10^3/uL (3.29-11.43) 12/31/22 07:25 RBC 5.28 10^6/uL (3.85-5.65) 12/31/22 07:25 Hgb 15.30 g/dL (11.27-16.99) 12/31/22 07:25 Hct 46.4 % (37-53) 12/31/22 07:25 MCV 87.9 fl (82-101) 12/31/22 07:25 MCH 29.0 pg (27-33) 12/31/22 07:25 MCHC 33.0 g/dL (30-55) 12/31/22 07:25 RDW 13.7 % (12.1-15.1) 12/31/22 07:25 Plt Count 178 10^3/cmm (157-399) 12/31/22 07:25 MPV 12.4 fL (7.4-10.4) H 12/31/22 07:25 Neut % (Auto) 74.0 % 12/31/22 07:25 Lymph % (Auto) 15.5 % 12/31/22 07:25 [place] % (Auto) 7.9 % 12/31/22 07:25 Eos % (Auto) 1.2 % 12/31/22 07:25 Baso % (Auto) 0.8 % 12/31/22 07:25 Neut # (Auto) 4.87 10^3/uL (1.8-7.7) 12/31/22 07:25 Lymph # (Auto) 1.0 10^3/uL (0.8-4.8) 12/31/22 07:25 [place] # (Auto) 0.5 10^3/uL (0.2-0.9) 12/31/22 07:25 Eos # (Auto) 0.1 10^3/uL (0.0-0.8) 12/31/22 07:25 Baso # (Auto) 0.1 10^3/uL (0.0-0.1) 12/31/22 07:25 Nucleated RBC % (auto) 0 % 12/31/22 07:25 Nucleated RBCs # 0.0 /100WBC 12/31/22 07:25 Sodium 140 mmol/L (136-145) 12/31/22 07:25 Potassium 4.5 mmol/L (3.5-5.1) 12/31/22 07:25 Chloride 105 mmol/L (98-107) 12/31/22 07:25 Carbon Dioxide 23 mmol/L (22-29) 12/31/22 07:25 Anion Gap 16.5 (5-19) 12/31/22 07:25 BUN 14 mg/dL (8-23) 12/31/22 07:25 Creatinine 1.3 mg/dL (0.7-1.2) H 12/31/22 07:25 GFR Calculation Not Reportable 12/31/22 07:25 Glucose 100 mg/dL (65-115) 12/31/22 07:25 Calculated Osmolality 291 mOsm/kg (285-295) 12/31/22 07:25 Calcium 10.0 mg/dL (8.5-10.5) 12/31/22 07:25 Total Bilirubin 0.5 mg/dL (0.15-1.2) 12/31/22 07:25 AST 19 U/L (0-40) 12/31/22 07:25 ALT 18 U/L (0-41) 12/31/22 07:25 Alkaline Phosphatase 53 U/L (40-130) 12/31/22 07:25 Troponin T Baseline 7 ng/L (0-15) 12/31/22 07:25 Troponin T 120 Minute 8.51 ng/L (0-15) 12/31/22 09:29 Total Protein 7.1 g/dL (6.6-8.7) 12/31/22 07:25 Albumin 4.9 g/dL (3.5-5.2) 12/31/22 07:25 Globulin 2.2 g/dL (1.3-4.6) 12/31/22 07:25 All radiology interpretation(s) finalized by discharge Discharge Plan Discharge Patient Disposition: Home Clinical Impression: Hypertension, AAA (abdominal aortic aneurysm), Atypical chest pain Condition: Stable Prescriptions: New amlodipine 5 mg tablet 5 mg PO DAILY Qty: 30 0RF No Action trazodone 50 mg tablet 50 mg PO BEDTIME PRN (Reason: insomnia) terbinafine HCl 250 mg tablet 250 mg PO DAILY lisinopril 20 mg tablet 20 mg PO BID Qty: 60 0RF lisinopril 10 mg tablet 10 mg PO DAILY gabapentin 400 mg capsule 400 mg PO DAILY pantoprazole 40 mg tablet,delayed release (DR/EC) 40 mg PO BID fenofibrate nanocrystallized 145 mg tablet 145 mg PO QPM Discharge Orders: Discharge ED (Routine); Ordered 12/31/22 Ordered By: Edgar Nair Referrals: Gely Espinosa FNP [Primary Care Provider] - Discharge Diet: Usual diet Discharge Activity: Increase activity as tolerated Patient Instructions: Opioid Safety, Pain Management Activity Restrictions/Additional Instructions: Thank you for choosing [facility] for your healthcare needs today. Please realize this is an emergency room and that we are providing you with a medical screening exam and this may not be complete and all inclusive of all the testing and or work up that you may need to determine your ailment or severity of your illness. It is very important that you follow up as instructed or that you return to the Emergency Department should you have concerns or if your condition changes or worsens in any way. You were seen today with complaint of chest pain and elevated blood pressure. Your cardiac enzymes and EKG were normal. Recommend continuing your lisinopril and adding amlodipine 5 mg daily follow-up with your primary care doctor recheck your blood pressure within the next 7 to 10 days log your blood pressures at home bring them with you to your next appointment. Coding Level of Care Code ED [employer] Operator for Una Klein
[2022-12-31] MEDS: amlodipine 5 mg Tablet PO (07:33)
[2022-12-31] MEDS: aspirin 81 mg Chew Tablet 324 MG PO (07:33)
[2022-12-31] MEDS: lisinopril 20 mg Tablet PO (07:33)
[2022-12-31 07:55] LABS: Basophils # 0.1 10^3/uL (0.0-0.1); Basophils % 0.8 %; Eosinophils # 0.1 10^3/uL (0.0-0.8); Eosinophils % 1.2 %; Hematocrit 46.4 % (37-53); Lymphocytes % 15.5 %; Mean Corpuscular Volume 87.9 fl (82-101); Mean Platelet Volume 12.4 fL (7.4-10.4); Monocytes # 0.5 10^3/uL (0.2-0.9); Monocytes % 7.9 %; Neutrophils # 4.87 10^3/uL (1.8-7.7); Nucleated Red Blood Cells % 0 %; Platelet Count 178 10^3/cmm (157-399); Red Blood Count 5.28 10^6/uL (3.85-5.65); Red Cell Distribution Width 13.7 % (12.1-15.1); White Blood Count 6.58 10^3/uL (3.29-11.43)
[2022-12-31 08:03] LABS: Alanine Aminotransferase 18 U/L (0-41); Albumin Level 4.9 g/dL (3.5-5.2); Alkaline Phosphatase 53 U/L (40-130); Anion Gap 16.5 (5-19); Aspartate Amino Transferase 19 U/L (0-40); Blood Urea Nitrogen 14 mg/dL (8-23); Carbon Dioxide 23 mmol/L (22-29); Chloride 105 mmol/L (98-107); Globulin 2.2 g/dL (1.3-4.6); Glucose 100 mg/dL (65-115); Osmolality Calculated 291 mOsm/kg (285-295); Potassium 4.5 mmol/L (3.5-5.1); Sodium 140 mmol/L (136-145); Total Bilirubin 0.5 mg/dL (0.15-1.2); Total Protein 7.1 g/dL (6.6-8.7)
[2022-12-31 08:04] LABS: Troponin(5th) Baseline 7 ng/L (0-15)
[2022-12-31 08:19] VITALS: BP 154/95; PULSE 61; RESP 18; O2SAT 92
[2022-12-31 08:59] VITALS: BP 149/90; PULSE 60; RESP 18; O2SAT 92
--- NOTE | 2022-12-31 09:13 | ECG_ITS ---
[facility] Test Date: 2022-12-31 Pat Name: Cong Nath Department: Room: Gender: Male Counter Roller: : 1945 Requested By: Edgar Bauer Order Number: [id number] Nisha MD: Saul Winn M.D. Measurements Intervals [place] Rate: 65 P: 80 WV: 147 QRS: -32 QRSD: 102 T: 3 QT: 408 QTc: 427 Interpretive Statements SINUS RHYTHM WITH OCCASIONAL ECTOPIC PREMATURE COMPLEXES LEFT AXIS DEVIATION INCOMPLETE RIGHT BUNDLE BRANCH BLOCK Compared to ECG 12/31/2022 07:09:54 Left-axis deviation now present Incomplete right bundle-branch block now present Electronically Signed On 12-31-2022 14:53:12 [employer]OPOLIT[employer] EDITOR by Saul Winn M.D. [id number]
[2022-12-31 09:24] VITALS: BP 147/89; PULSE 60; RESP 18; O2SAT 96
[2022-12-31 10:25] VITALS: BP 147/89; PULSE 63; RESP 18; O2SAT 92
[2022-12-31 10:26] LABS: Troponin 5 2HR 8.51 ng/L (0-15); Troponin 5 2HR Delta 1.51 ABS# (0-10)
== END 2022-12-31 10:38 | disposition home or self-care (01) ==
PROVIDERS: Emergency Provider Family Medicine; PCP Nurse Practitioner Family
DX: R07.89 Other chest pain (principal); I10 Essential (primary) hypertension; I71.40 Abdominal aortic aneurysm, without rupture, unspecified; F17.290 Nicotine dependence, other tobacco product, uncomplicated; E78.5 Hyperlipidemia, unspecified
CPT/HCPCS: 36415; 71045; 80053; 84484; 85025; 93005; 93010; 99285

== ENCOUNTER → 2023-01-17 10:11 | Outpatient (BNVA) | payer MEDICARE, SELFPAY | PROVIDERS: PCP Nurse Practitioner Family; Visit Provider Dermatology | DX: Z85.828 Personal history of other malignant neoplasm of skin (principal); L30.0 Nummular dermatitis; L57.0 Actinic keratosis; L82.1 Other seborrheic keratosis; L81.4 Other melanin hyperpigmentation | CPT/HCPCS: 17000; 99214 ==

== ENCOUNTER → 2023-02-06 09:25 | Outpatient (BNVA) | payer MEDICARE, SELFPAY | PROVIDERS: PCP Nurse Practitioner Family; Visit Provider Nurse Practitioner Family | DX: R19.7 Diarrhea, unspecified (principal) | CPT/HCPCS: 87045; 87427; 87449; 87493 ==

== ENCOUNTER → 2023-03-20 11:54 | Outpatient (BNVA) | payer MEDICARE, SELFPAY | PROVIDERS: PCP Nurse Practitioner Family; Visit Provider Internal Medicine Cardiovascular Disease | DX: I10 Essential (primary) hypertension (principal); E78.5 Hyperlipidemia, unspecified; I48.91 Unspecified atrial fibrillation; R09.89 Other specified symptoms and signs involving the circulatory and respiratory systems; F17.290 Nicotine dependence, other tobacco product, uncomplicated; Z12.5 Encounter for screening for malignant neoplasm of prostate | CPT/HCPCS: 80053; 80061; 99213; G0103 ==

== ENCOUNTER → 2023-03-26 15:53 | Outpatient (BNVA) | payer MEDICARE, SELFPAY | PROVIDERS: PCP Nurse Practitioner Family; Visit Provider Nurse Practitioner Family | DX: R35.0 Frequency of micturition (principal); R97.20 Elevated prostate specific antigen [PSA] | CPT/HCPCS: 81000 ==

== ENCOUNTER → 2023-04-01 08:53 | Outpatient (BNVA) | payer MEDICARE, SELFPAY | PROVIDERS: PCP Nurse Practitioner Family; Visit Provider Nurse Practitioner Family | DX: R35.0 Frequency of micturition (principal); R97.20 Elevated prostate specific antigen [PSA] | CPT/HCPCS: 84153 ==

== ENCOUNTER → 2023-04-26 14:41 | Outpatient (BNVA) | payer MEDICARE, SELFPAY | PROVIDERS: PCP Nurse Practitioner Family; Visit Provider Nurse Practitioner Family | DX: R35.0 Frequency of micturition (principal) | CPT/HCPCS: 81000 ==

== ENCOUNTER → 2023-07-17 11:30 | Outpatient (BNVA) | payer MEDICARE, SELFPAY | PROVIDERS: PCP Nurse Practitioner Family; Visit Provider Nurse Practitioner Family | DX: I10 Essential (primary) hypertension (principal); E55.9 Vitamin D deficiency, unspecified; R25.2 Cramp and spasm | CPT/HCPCS: 80061; 82306; 83735 ==

== ENCOUNTER → 2023-09-18 12:20 | Outpatient (BNVA) | payer MEDICARE, SELFPAY | PROVIDERS: PCP Nurse Practitioner Family; Visit Provider Internal Medicine Cardiovascular Disease | DX: I10 Essential (primary) hypertension (principal); E78.5 Hyperlipidemia, unspecified; I48.91 Unspecified atrial fibrillation; I71.40 Abdominal aortic aneurysm, without rupture, unspecified; Z87.891 Personal history of nicotine dependence; Z79.82 Long term (current) use of aspirin | CPT/HCPCS: 99213 ==

== ENCOUNTER 2023-10-16 10:51 | Outpatient (CLI) | payer MEDICARE, SELFPAY ==
--- NOTE | 2023-10-16 11:15 | USCV_ITS ---
Cong Nath Age: 77 Gender: M : 1945 Exam Date: 10/16/2023 10:55 Ordering Phys: Prudencio Tai MD ([email or web address]) Technologist: CT Exam Location: [facility] – [place] Indication: aaa HISTORY: Diameter (cm) AP x Transverse x Length Velocity (cm/s) Waveform Prox Aorta: 2.60 x 2.70 x 69.10 Mid Aorta: 2.40 x 2.80 x 91.20 Distal Aorta: 5.20 x 4.90 x 79.30 Right Iliac Prox: 1.10 x 1.30 x 123.90 Left Iliac Prox: 1.20 x 1.10 x 134.80 Stent Prox Landing x x Aneurysmal Sac Max x x Lt Lat Sac Dim Rt Lat Sac Dim Stent Dist Landing x x Right Iliac Stent x x Left Iliac Stent x x Right Renal Art Left Renal Art FINDINGS: Comparison:. 12/03/22 A fusiform abdominal aortic aneurysm is noted with a maximal diameter of 5.2 cm. No evidence of periaortic fluid is detected. Increase in size of AAA. There is evidence of atherosclerotic plaque no significan stenosis in the right common iliac artery. There is evidence of atherosclerotic plaque no significan stenosis in the left common iliac artery. CONCLUSIONS A fusiform abdominal aortic aneurysm is noted with a maximal diameter of 5.2 cm. Mild increase in size since the prior exam. Dr. Dottie Lazaro DO (Electronically Signed) Final Date: 16 October 2023 12:58 S
== END 2023-10-16 10:52 | disposition home or self-care (01) ==
LOC: RAD 10:51
PROVIDERS: PCP Nurse Practitioner Family; Visit Provider Internal Medicine Cardiovascular Disease
DX: I71.40 Abdominal aortic aneurysm, without rupture, unspecified (principal); I70.8 Atherosclerosis of other arteries
CPT/HCPCS: 93978

== ENCOUNTER → 2024-06-02 14:50 | Outpatient (BNVA) | payer MEDICARE, SELFPAY | PROVIDERS: PCP Nurse Practitioner Family; Visit Provider Nurse Practitioner Family | DX: Z12.5 Encounter for screening for malignant neoplasm of prostate (principal); I10 Essential (primary) hypertension | CPT/HCPCS: 80053; G0103 ==

== ENCOUNTER → 2024-06-09 11:21 | Outpatient (BNVA) | payer MEDICARE, SELFPAY | PROVIDERS: PCP Nurse Practitioner Family; Visit Provider Nurse Practitioner Family | DX: I71.40 Abdominal aortic aneurysm, without rupture, unspecified (principal) | CPT/HCPCS: 80061 ==

== ENCOUNTER → 2024-07-15 15:08 | Outpatient (BNVA) | payer MEDICARE, SELFPAY | PROVIDERS: PCP Nurse Practitioner Family; Visit Provider Nurse Practitioner Family | DX: I10 Essential (primary) hypertension (principal); E55.9 Vitamin D deficiency, unspecified; T14.8XXA Other injury of unspecified body region, initial encounter; X58.XXXA Exposure to other specified factors, initial encounter | CPT/HCPCS: 80053; 82306; 82652; 85025 ==

== ENCOUNTER → 2024-11-13 10:46 | Outpatient (BNVA) | payer MEDICARE, SELFPAY | PROVIDERS: PCP Nurse Practitioner Family; Visit Provider Dermatology | DX: L82.1 Other seborrheic keratosis (principal); L81.4 Other melanin hyperpigmentation; D69.2 Other nonthrombocytopenic purpura; L57.8 Other skin changes due to chronic exposure to nonionizing radiation; Z08 Encounter for follow-up examination after completed treatment for malignant neoplasm; Z85.828 Personal history of other malignant neoplasm of skin; L57.0 Actinic keratosis | CPT/HCPCS: 17000; 99213 ==

== ENCOUNTER → 2024-12-01 11:39 | Outpatient (BNVA) | payer MEDICARE, SELFPAY | PROVIDERS: PCP Nurse Practitioner Family; Visit Provider Nurse Practitioner Family | DX: N40.0 Benign prostatic hyperplasia without lower urinary tract symptoms (principal) | CPT/HCPCS: 84153 ==

== ENCOUNTER → 2024-12-14 09:40 | Outpatient (BNVA) | payer MEDICARE, SELFPAY | PROVIDERS: PCP Nurse Practitioner Family; Visit Provider Nurse Practitioner Family | DX: E78.5 Hyperlipidemia, unspecified (principal) | CPT/HCPCS: 80061 ==

== ENCOUNTER → 2025-01-11 09:24 | Outpatient (BNVA) | payer MEDICARE, SELFPAY | PROVIDERS: PCP Nurse Practitioner Family; Visit Provider Nurse Practitioner Family | DX: R10.84 Generalized abdominal pain (principal) | CPT/HCPCS: 86003; 86008 ==

== ENCOUNTER → 2025-02-09 11:48 | Outpatient (BNVA) | payer MEDICARE, SELFPAY | PROVIDERS: PCP Nurse Practitioner Family; Visit Provider Family Medicine | DX: Z78.9 Other specified health status (principal); R89.9 Unspecified abnormal finding in specimens from other organs, systems and tissues | CPT/HCPCS: 86003; 86008 ==